=== PATIENT | male | born 1965 | race Caucasian/White ===

== ENCOUNTER 2018-04-14 16:30 | Emergency (ER) | payer BC, SELFPAY ==
[2018-04-14 16:47] VITALS: BP 142/81; PULSE 105; RESP 20; TEMP 38.6; O2SAT 95; BMI 36.6
[2018-04-14 17:38] VITALS: BP 143/81; PULSE 97; O2SAT 96
--- NOTE | 2018-04-14 18:07 | ED.FEVER ---
HPI - Fever General Chief Complaint: Fever Stated Complaint: FEVER Time Seen by Provider: 04/14/18 18:06 Source: patient Mode of arrival: ambulatory Limitations: no limitations History of Present Illness HPI Narrative: 53-year-old otherwise healthy male except for hypertension here for evaluation of approximately 2 days of a fever at home. Patient states that his temperature is got as high as 104. Took some aspirin. States that the fever comes down but then returns again. Does have a cough. Does have a sore throat. No sinus congestion. States that he was exposed to someone with ?bronchitis ?at work who coughed around him. Related Data Previous Rx's Medication Instructions Recorded sildenafil [Viagra] 0 mg PO QDAYP PRN #5 tab 12/16/16 chlorthalidone 25 mg PO QDAY #90 tab 09/07/17 potassium chloride 20 meq PO QDAY #90 tab 11/01/17 simvastatin [Zocor] 20 mg PO QDAY #90 tab 11/27/17 acetaminophen 300 mg-codeine 30 mg 1 - 2 tab PO SEE INSTRUCTIONS #90 03/26/18 tablet tab zolpidem 10 mg tablet 10 mg PO HS PRN #60 mg 03/26/18 carvedilol phosphate [Coreg CR] 40 mg PO QDAY #90 cer 04/03/18 Allergies Allergy/AdvReac Type Severity Reaction Status Date / Time *PAIN MANAGEMENT AGREEMENT AdvReac Mild Uncoded 02/14/18 12:20 Review of Systems Constitutional Reports fatigue, Reports fever(s), Denies headache(s), Reports lethargy and Denies snoring ENT Ears, Nose, Mouth, and Throat: Denies dental pain, Denies vertigo, Denies dizziness, Denies headache(s), Denies neck pain, Denies sinus pain, Denies sinus pressure and Reports sore throat Cardiovascular Denies chest pain, Denies irregular heart rhythm, Denies lightheadedness, Denies palpitations, Denies dyspnea and Denies orthopnea Respiratory Reports chest congestion, Reports cough, Denies pain on inspiration, Reports pain with cough, Denies dyspnea, Denies snoring and Denies wheezing Gastrointestinal Gastrointestinal: Denies abdominal pain, Denies diarrhea, Denies nausea and Denies vomiting Comments: Decreased oral intake Genitourinary Denies dysuria Musculoskeletal Denies back pain, Denies myalgias, Denies arthralgias and Denies neck pain Integumentary/Breasts Denies lesions and Denies rash Neurologic Denies vertigo, Denies dizziness and Denies headache(s) Endocrine Reports fatigue and Denies palpitations Hematologic/Lymphatic Denies easy bruising Allergic/Immunologic Denies wheezing [facility] Social History Smoking Status: Never smoker Exam Initial Vital Signs Initial Vital Signs: Vital Signs Temperature 101.4 F H 04/14/18 16:47 Pulse Rate 105 H 04/14/18 16:47 Respiratory Rate 20 04/14/18 16:47 Blood Pressure 142/81 H 04/14/18 16:47 Pulse Oximetry 95 04/14/18 16:47 Const General: cooperative and well developed Nutritional Appearance: well nourished Orientation: alert, awake, oriented x3 and not confused HENMT Head: normal to inspection, normocephalic and atraumatic Ears: TM's normal bilaterally Nose: external nose normal Throat: posterior oropharynx normal, tonsils normal and uvula midline Neck Neck: normal visual inspection, trachea midline, No lymphadenopathy and No midline deformity Lymphatic: No lymphadenopathy Resp Effort & Inspection: normal respiratory effort, able to speak in complete sentences, no respiratory distress and no use of accessory muscles Auscultation: clear to auscultation bilaterally, no rales, no rhonchi and no wheezes Cardio Rate: regular rate Rhythm: regular rhythm Heart Sounds: no click, no gallops, no murmurs and no rubs Pulses: normal peripheral pulses GI Inspection: non-distended Palpation: soft, no hepatosplenomegaly, No guarding, No pulsatile mass and No tender Auscultation: normal bowel sounds Skin General: no rashes or lesions noted, No jaundice and No petechiae Neuro General: alert, awake and oriented x3 Extrem General: full ROM, no clubbing, cyanosis or edema, no pedal edema and no calf tenderness Course Orders Ordered: ED Orders 04/14/18 18:08 Blood Culture Stat Urinalysis and Microscopic Stat 04/14/18 18:11 Chest [XR chest 2V] Stat 04/14/18 18:30 Basic Metabolic Panel Stat Bilirubin Total Stat Complete Blood Count AUTO DIFF Stat Lactate (Lactic Acid) Stat Procalcitonin Stat Discontinued Medications Acetaminophen (Tylenol) 975 mg PO NOW ONE Stop: 04/14/18 17:23 Last Admin: 04/14/18 18:14 Dose: 975 mg Sodium Chloride (Normal Saline 0.9%) 1,000 mls @ 1,000 mls/hr IV BOLUS ONE Stop: 04/14/18 19:11 Last Admin: 04/14/18 18:14 Dose: 1,000 mls/hr Vital Signs - 8 hr 04/14/18 16:47 04/14/18 17:38 04/14/18 18:14 Temperature 101.4 F H 101.0 F H Pulse Rate 105 H 97 H Respiratory Rate 20 Blood Pressure 142/81 H Blood Pressure [Right Arm] 143/81 H Pulse Oximetry 95 96 04/14/18 18:36 04/14/18 18:45 04/14/18 19:05 Temperature 100.4 F H Pulse Rate 93 H 90 Respiratory Rate 18 16 Blood Pressure Blood Pressure [Right Arm] 124/61 H 132/62 H Pulse Oximetry 94 92 MDM - Fever Lab Data Attestation: I reviewed the patient's lab results. Result diagrams: 04/14/18 18:30 04/14/18 18:30 Lab Results 04/14/18 04/14/18 04/14/18 Range/Units 18:08 18:30 18:30 WBC 8.7 (4.5-11.0) X10^3/uL RBC 4.70 (4.5-5.9) X10^6/uL Hgb 13.8 (13.5-17.5) g/dL Hct 39.3 L (41-53) % MCV 83.5 (80-100) fL MCH 29.3 (26-34) PG MCHC 35.0 (30-36) % RDW 13.4 (11.6-14.8) % Plt Count 153 (150-400) X10^3/uL Neut % (Auto) 75.8 H (50-75) % Lymph % (Auto) 13.2 L (25-40) % [place] % (Auto) 10.6 (3-14) % Eos % (Auto) 0.2 L (2-4) % Baso % (Auto) 0.2 (0-2) % Neut # (Auto) 6600 H (2420-8863) /uL Sodium (137-145) mmol/L Potassium (3.4-5.1) mmol/L Chloride (98-107) mmol/L Carbon Dioxide (22-32) mmol/L BUN (9-20) mg/dL Creatinine (0.66-1.25) mg/dL Estimated GFR (>60) mL/min BUN/Creatinine Ratio (6-22) Glucose (70-100) mg/dL Lactate (0.7-2.1) mmol/L Calcium (8.4-10.2) mg/dL Total Bilirubin (0.2-1.3) mg/dL Procalcitonin 0.08 (<0.5) ng/mL Urine Color Yellow Urine Appearance Clear Urine pH 6.0 (4.5-8.0) Ur Specific [place] <=1.005 (1.000-1.035) Urine Protein Negative (Negative) Urine Glucose (UA) Negative (Normal) g/dL Urine Ketones Negative (NEGATIVE) Urine Occult Blood 1+ H (Negative) Urine Nitrate Negative (Negative) Urine Bilirubin Negative (NEGATIVE) Urine Urobilinogen 0.2 (0.2) E.U./dL Ur Leukocyte Esterase Negative (NEGATIVE) Urine RBC 0-1/hpf (0-5/HPF) Urine WBC 0-1/hpf (0-5/HPF) Ur Squamous Epith Cells 0-1 /hpf Urine Bacteria None seen (None) Ur Culture Indicated? Not Reportable Micro UA Comment Not Reportable 04/14/18 04/14/18 Range/Units 18:30 18:30 WBC (4.5-11.0) X10^3/uL RBC (4.5-5.9) X10^6/uL Hgb (13.5-17.5) g/dL Hct (41-53) % MCV (80-100) fL MCH (26-34) PG MCHC (30-36) % RDW (11.6-14.8) % Plt Count (150-400) X10^3/uL Neut % (Auto) (50-75) % Lymph % (Auto) (25-40) % [place] % (Auto) (3-14) % Eos % (Auto) (2-4) % Baso % (Auto) (0-2) % Neut # (Auto) (4535-4132) /uL Sodium 138 (137-145) mmol/L Potassium 2.9 L (3.4-5.1) mmol/L Chloride 97 L (98-107) mmol/L Carbon Dioxide 31 (22-32) mmol/L BUN 11 (9-20) mg/dL Creatinine 0.80 (0.66-1.25) mg/dL Estimated GFR > 60.0 (>60) mL/min BUN/Creatinine Ratio 13.8 (6-22) Glucose 144 H (70-100) mg/dL Lactate 1.5 (0.7-2.1) mmol/L Calcium 8.3 L (8.4-10.2) mg/dL Total Bilirubin 0.5 (0.2-1.3) mg/dL Procalcitonin (<0.5) ng/mL Urine Color Urine Appearance Urine pH (4.5-8.0) Ur Specific [place] (1.000-1.035) Urine Protein (Negative) Urine Glucose (UA) (Normal) g/dL Urine Ketones (NEGATIVE) Urine Occult Blood (Negative) Urine Nitrate (Negative) Urine Bilirubin (NEGATIVE) Urine Urobilinogen (0.2) E.U./dL Ur Leukocyte Esterase (NEGATIVE) Urine RBC (0-5/HPF) Urine WBC (0-5/HPF) Ur Squamous Epith Cells Urine Bacteria (None) Ur Culture Indicated? Micro UA Comment Imaging Data Chest x-ray: Radiologist's impression: PROCEDURE: XR CHEST 2V INDICATIONS: 53 year-old male with fever and cough. TECHNIQUE: 2 views of the chest were acquired. COMPARISON: [facility], CHEST 1 VIEW, 12/27/2016, 13:08. FINDINGS: Surgical changes and devices: None. Lungs and pleura: No pleural effusions or pneumothorax. Lungs are clear. Mediastinum: Mediastinal contours are normal. Heart size is normal. Bones and chest wall: No suspicious bony abnormalities. There is thoracic spine diffuse idiopathic skeletal hyperostosis. Soft tissues appear unremarkable. IMPRESSION: No acute cardiopulmonary disease. Dictated by: Rosas Hubbard M.D. on 04/14/2018 at 19:01 MDM Narrative Medical decision making narrative: Nontoxic, not in respiratory distress, no consolidation on the chest x-ray, fever improved with medications here in the emergency department. Patient tolerating oral intake. Had a discussion about fever control at home. I discussed about increasing fluid intake. I suspect a viral illness. Patient was given return precautions. He expressed understanding and agreement with plan. Discharge Plan Departure Patient Disposition: Home, Self-Care Clinical Impression: Fever Instructions: DI for Fever (Symptom) -- Adult Activity Restrictions/Additional Instructions: Make sure you are taking the medicines like we discussed. Increase her fluid intake. Call your primary doctor for a follow-up. Return to the emergency department for any new or worsening symptoms Prescriptions: No Action sildenafil [Viagra] 100 MG tablet PO QDAYP PRNQty: 5 RF: 12 chlorthalidone 25 MG tablet 25 mg PO QDAY Qty: 90 RF: 2 potassium chloride 20 MEQ tablet,ER particles/crystals 20 meq PO QDAY Qty: 90 RF: 3 simvastatin [Zocor] 20 MG tablet 20 mg PO QDAY Qty: 90 RF: 2 acetaminophen-codeine 300-30 mg tablet 1 - 2 tab PO SEE INSTRUCTIONS Qty: 90 RF: 0 zolpidem [Ambien] 10 mg tablet 10 mg PO HS PRN (Reason: insomnia) Qty: 60 RF: 0 carvedilol phosphate [Coreg CR] 40 mg capsule, ER multiphase 24 hr 40 mg PO QDAY Qty: 90 RF: 2 Stand Alone Forms: Work/School Restrictions
--- NOTE | 2018-04-14 18:11 | DI.RAD.S_ITS ---
PROCEDURE: XR CHEST 2V INDICATIONS: 53 year-old male with fever and cough. TECHNIQUE: 2 views of the chest were acquired. COMPARISON: [facility], , CHEST 1 VIEW, 12/27/2016, 13:08. FINDINGS: Surgical changes and devices: None. Lungs and pleura: No pleural effusions or pneumothorax. Lungs are clear. Mediastinum: Mediastinal contours are normal. Heart size is normal. Bones and chest wall: No suspicious bony abnormalities. There is thoracic spine diffuse idiopathic skeletal hyperostosis. Soft tissues appear unremarkable. IMPRESSION: No acute cardiopulmonary disease. Dictated by: Rosas Hubbard M.D. on 04/14/2018 at 19:01 Approved by: Rosas Hubbard M.D. on 04/14/2018 at 19:02
[2018-04-14 18:14] VITALS: TEMP 38.3
[2018-04-14] MEDS: SODIUM CHLORIDE 0.9% 1,000 ML 1000 ML IV (18:14)
[2018-04-14] MEDS: ACETAMINOPHEN 325 MG TABLET 975 MG PO (18:14)
[2018-04-14 18:36] VITALS: BP 124/61; PULSE 93; RESP 18; O2SAT 94
[2018-04-14 18:44] LABS: Bacteria Urine None Seen
[2018-04-14 18:45] VITALS: TEMP 38
[2018-04-14 18:47] LABS: Add Manual Diff / Slide Review NO; Basophils Percent Auto 0.2 % (0-2); Eosinophils Percent Auto 0.2 % (2-4); Hematocrit 39.3 % (41-53); Hemoglobin 13.8 g/dL (13.5-17.5); Lymphocytes Percent Auto 13.2 % (25-40); Mean Corpuscular Hemoglobin 29.3 PG (26-34); Mean Corpuscular Volume 83.5 fL (80-100); Monocytes Percent Auto 10.6 % (3-14); Neutrophils Absolute Auto 6600 /uL (3000-5900); Neutrophils Percent Auto 75.8 % (50-75); Platelet Count 153 X10^3/uL (150-400); Red Cell Distribution Width 13.4 % (11.6-14.8); White Blood Cell Count 8.7 X10^3/uL (4.5-11.0)
[2018-04-14 18:48] LABS: Appearance Urine UA CLEAR; Bilirubin Urine UA NEGATIVE (NEGATIVE); Color Urine UA YELLOW; Glucose Urine UA NEGATIVE (Normal); Ketones Urine UA NEGATIVE (NEGATIVE); Leukocyte Esterase Urine UA NEGATIVE (NEGATIVE); Nitrite Urine UA Negative (Negative); Occult Blood Urine UA 1+ (Negative); Protein Urine UA NEGATIVE (Negative); Specific Gravity Urine UA <=1.005 (1.000-1.035); Urobilinogen Urine UA 0.2 E.U./dL (0.2)
[2018-04-14 18:54] LABS: Lactate (Lactic Acid) 1.5 mmol/L (0.7-2.1)
[2018-04-14 18:55] LABS: BUN Creatinine Ratio 13.8 (6-22); Bilirubin Total 0.5 mg/dL (0.2-1.3); Blood Urea Nitrogen 11 mg/dL (9-20); Calcium 8.3 mg/dL (8.4-10.2); Carbon Dioxide 31 mmol/L (22-32); Chloride 97 mmol/L (98-107); Estimated Glomerular Filt Rate > 60.0 mL/min (>60); Glucose 144 mg/dL (70-100); HEMOLYSIS < 15 (0-50); Potassium 2.9 mmol/L (3.4-5.1); Sodium 138 mmol/L (137-145)
[2018-04-14 19:01] LABS: RBC Urine 0-1/HPF (0-5/HPF); Squamous Epithelial Cell Urine 0-1 /HPF; WBC Urine 0-1/HPF (0-5/HPF)
[2018-04-14 19:05] VITALS: BP 132/62; PULSE 90; RESP 16; O2SAT 92
[2018-04-14 19:19] LABS: Procalcitonin 0.08 ng/mL (<0.5)
== END 2018-04-14 19:36 | disposition home or self-care (01) ==
PROVIDERS: Emergency Medicine; Emergency Provider Emergency Medicine; Family Provider Internal Medicine; PCP Internal Medicine
DX: R50.9 Fever, unspecified (principal)
CPT/HCPCS: 36415; 36591; 71046; 80048; 81001; 82247; 83605; 84145; 85025; 87040; 87880; 96360; 99283; 99284

== ENCOUNTER → 2018-04-17 15:23 | Outpatient (CLI) | payer SELFPAY | PROVIDERS: Family Provider Internal Medicine; PCP Internal Medicine; Visit Provider Internal Medicine ==

== ENCOUNTER → 2018-04-19 10:17 | Outpatient (CLI) | payer BC, SELFPAY | PROVIDERS: PCP Internal Medicine; Visit Provider Internal Medicine | DX: R50.9 Fever, unspecified (principal); R05 Cough; Z53.9 Procedure and treatment not carried out, unspecified reason | CPT/HCPCS: 87070; 87077; 87147; 87205 ==

== ENCOUNTER → 2018-04-19 14:38 | Outpatient (CLI) | payer BC, SELFPAY ==
[2018-04-19 16:10] LABS: Blood Urea Nitrogen 12 mg/dL (9-20); Calcium 9.1 mg/dL (8.4-10.2); Carbon Dioxide 35 mmol/L (22-32); Chloride 93 mmol/L (98-107); Estimated Glomerular Filt Rate > 60.0 mL/min (>60); Glucose 123 mg/dL (70-100); HEMOLYSIS < 15 (0-50); Potassium 3.4 mmol/L (3.4-5.1); Sodium 140 mmol/L (137-145)
== END ==
PROVIDERS: PCP Internal Medicine; Visit Provider Internal Medicine
DX: E87.6 Hypokalemia (principal); J20.9 Acute bronchitis, unspecified
CPT/HCPCS: 36415; 80048; 87070; 87077; 87147; 87186; 87205

== ENCOUNTER → 2019-08-22 16:26 | Outpatient (CLI) | payer BC, SELFPAY ==
[2019-08-22 18:15] LABS: Prostate Specific Antigen Scrn 1.51 ng/mL (0.1-4.0)
== END ==
PROVIDERS: PCP Internal Medicine; Visit Provider Internal Medicine
DX: Z12.5 Encounter for screening for malignant neoplasm of prostate (principal)
CPT/HCPCS: 36415; G0103

== ENCOUNTER → 2020-09-11 08:13 | Outpatient (CLI) | payer BC, SELFPAY ==
[2020-09-11 10:32] LABS: Alanine Aminotransferase 54 IU/L (<50); Albumin 4.2 g/dL (3.5-5.0); Albumin Globulin Ratio 1.5 (1.0-2.8); Alkaline Phosphatase 70 U/L (38-126); Aspartate Aminotransferase 45 IU/L (17-59); BUN Creatinine Ratio 17.1 (6-22); Bilirubin Total 0.6 mg/dL (0.2-1.3); Blood Urea Nitrogen 12 mg/dL (9-20); Calcium 9.1 mg/dL (8.4-10.2); Carbon Dioxide 32 mmol/L (22-32); Chloride 98 mmol/L (98-107); Cholesterol 153 mg/dL (140-199); Estimated Glomerular Filt Rate > 60.0 mL/min (>60); Globulin 2.8 g/dL (1.7-4.1); Glucose 176 mg/dL (70-100); HDL Cholesterol 28 mg/dL (40-60); HEMOLYSIS < 15 (0-50); LDL Cholesterol Calculated 63 mg/dL (<100); Potassium 3.3 mmol/L (3.4-5.1); Sodium 137 mmol/L (137-145); Triglycerides 311 mg/dL (35-150)
== END ==
PROVIDERS: PCP Internal Medicine; Referring Provider Internal Medicine; Visit Provider Internal Medicine
DX: E78.2 Mixed hyperlipidemia (principal); I10 Essential (primary) hypertension; Z12.5 Encounter for screening for malignant neoplasm of prostate
CPT/HCPCS: 36415; 80053; 80061; G0103

== ENCOUNTER → 2020-10-23 07:17 | Outpatient (CLI) | payer BC, SELFPAY ==
[2020-10-23 08:28] LABS: Hemoglobin A1C% w Est Avg Glu 6.8 % (4.0-6.0)
[2020-10-23 08:38] LABS: BUN Creatinine Ratio 18.8 (6-22); Blood Urea Nitrogen 13 mg/dL (9-20); Calcium 9.2 mg/dL (8.4-10.2); Carbon Dioxide 35 mmol/L (22-32); Chloride 99 mmol/L (98-107); Estimated Glomerular Filt Rate > 60.0 mL/min (>60); Glucose 150 mg/dL (70-100); HEMOLYSIS < 15 (0-50); Potassium 3.1 mmol/L (3.4-5.1); Sodium 138 mmol/L (137-145)
== END ==
PROVIDERS: PCP Internal Medicine; Referring Provider Internal Medicine; Visit Provider Internal Medicine
DX: E87.6 Hypokalemia (principal); I10 Essential (primary) hypertension; R73.9 Hyperglycemia, unspecified
CPT/HCPCS: 36415; 80048; 83036

== ENCOUNTER → 2021-01-07 14:52 | Outpatient (CLI) | payer BC, SELFPAY ==
--- NOTE | 2021-01-07 16:06 | DIET.PN ---
Diabetes Intake: Initial Assessment Assess: Mr. Greene is a 55 YOM referred for newly diagnosed type 2 diabetes. He reports no family hx. No other significant pmhx to report. 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 His daily routine as well as eating habits have changed. He has not been able to exercise due to chronic back pain. Currently does not have a glucometer. Labs: Per pt report: A1: 6.8 Meds: na Diet: per 24 hr recall: B: granola, oatmeal, milk, sugar L: can of salmon D: protein, veggies, rice Sn: 6 oz glass of milk; custard Wt: 288lb Ht: 74in BMI: 37.1 BP: 134/90 DX: Altered nutrition related laboratory values related to impaired glucose metabolism, lack of previous exposure to nutrition information as evidenced by pt report, diagnosis of diabetes, previous diet high in refined carbohydrates. Intervention: 1. Completed intake assessment. Discussed barriers to care. 2. Discussed pathophysiology of diabetes. Reviewed A1c and its correlation to blood glucose numbers. Discussed recommended BG ranges. 3. Discussed importance of self-monitoring, how often, and when to check. Provided demonstration on use of glucometer. 4. Reviewed hyper/hypoglycemia and treatment. 5. Reviewed safe disposal of equipment (strip/lancets/insulin needles). 6. Created SMART goals for pt self-care and success. 7. Discussed program curriculum outline and class needs based on individual goals. SMART Goals: 1. Pt goal weight of 220 in the next year through improved dietary habits, learning carb counting and appropriate portions and incorporating regular exercise. Monitor/Evaluate: Pt will attend full DSME program. Basic Nutrition class scheduled for Jan 12. Today?s visit was done via tele [employer]. 1 hour was spent [id number]-[id number] by video. Patient consented to receive these services via tele [employer] using the [email or web address] application. Participants in the tele conference were myself and the patient only. I was located at [facility] and the patient at his/her home.
== END ==
PROVIDERS: PCP Internal Medicine; Referring Provider Internal Medicine; Visit Provider Internal Medicine
DX: E11.9 Type 2 diabetes mellitus without complications (principal)
CPT/HCPCS: G0108

== ENCOUNTER → 2021-01-12 13:55 | Outpatient (CLI) | payer BC, SELFPAY ==
--- NOTE | 2021-01-12 15:39 | DIET.PN ---
Diabetes: Healthy Eating 1 Intervention: ? Discussed pathophysiology of diabetes and impact of nutrition/diet on blood sugar control.? Discussed fed versus non-fed state.?? ? Reviewed importance of Balance, Variety, and Moderation. ? Discussed the effect of carbohydrates/protein/fat on blood sugar control.? ? Stressed importance of consistent carbohydrate intake at each meal and provided instructions for recommended servings/portions of carbohydrates/protein per meal. Provided educational material. ? Reviewed carbohydrate counting and measuring carbohydrate content via serving sizes and reading nutrition labels.? Provided handouts.?? ? Discussed the difference between simple versus complex carbohydrates and the effect of fiber on blood sugar control.? Discussed various methods to increase fiber content in diet. ? Discussed the plate method for creating more carbohydrate conscious balanced meals. ? Stressed importance of meal timing and not going >4-5 hours between meals. Encouraged adding protein to evening snack to support glucose control overnight. ? Discussed importance of making dietary habits part of lifestyle change.
== END ==
PROVIDERS: PCP Internal Medicine; Referring Provider Internal Medicine; Visit Provider Internal Medicine
DX: E11.9 Type 2 diabetes mellitus without complications (principal); Z71.3 Dietary counseling and surveillance
CPT/HCPCS: G0109

== ENCOUNTER → 2021-01-19 16:27 | Outpatient (CLI) | payer BC, SELFPAY ==
--- NOTE | 2021-01-19 16:28 | DIET.PN ---
Diabetes: Healthy Eating 2 Intervention: Fats effects on glucose, weight, heart disease, cholesterol Sat Vs Unsat Protein- animal and plant based options Low, med, high fat meats Sugar substitutes Sodium Health claims Grocery shopping guidelines Eating away from home Alcohol Sick day guidelines Ketone Testing
== END ==
PROVIDERS: PCP Internal Medicine; Referring Provider Internal Medicine; Visit Provider Internal Medicine
DX: E11.9 Type 2 diabetes mellitus without complications (principal); Z71.3 Dietary counseling and surveillance
CPT/HCPCS: G0109

== ENCOUNTER → 2021-01-26 13:47 | Outpatient (CLI) | payer BC, SELFPAY ==
--- NOTE | 2021-01-26 16:54 | DIET.PN ---
Diabetes Physiology: Intervention 1. Diabetes physiology 2. Detecting and treatment of acute and chronic complications 3. Diagnosis of and difference in types of diabetes 4. Self-monitoring and pattern management a. Demonstrate glucometer and control testing b. Explain BG results and action to take when out of range. 5. Foot , eye, dental care 6. Medications a. Oral medication classification b. Injectable c. Insulin i. Injection protocol ii. Other delivery methods
== END ==
PROVIDERS: PCP Internal Medicine; Referring Provider Internal Medicine; Visit Provider Internal Medicine
DX: E11.9 Type 2 diabetes mellitus without complications (principal); Z71.3 Dietary counseling and surveillance
CPT/HCPCS: G0109

== ENCOUNTER → 2021-02-02 10:03 | Outpatient (CLI) | payer BC, SELFPAY ==
--- NOTE | 2021-02-02 12:10 | DIET.PN ---
Diabetes Exercise/Lifestyle change: 1. Importance of exercise 2. FITT (frequency, intensity, time, type) 3. Strength training tips and guidelines 4. Glucose monitoring/ranges before and after a. Carbohydrate needs based on glucose ranges and duration/intensity of exercise b. Rule of 15 5. Proper foot attire 6. Developing strategies for behavior change 7. SMART Goal Setting 8. Home exercise routine demonstration (as a class)
== END ==
PROVIDERS: PCP Internal Medicine; Referring Provider Internal Medicine; Visit Provider Internal Medicine
DX: E11.9 Type 2 diabetes mellitus without complications (principal); Z71.3 Dietary counseling and surveillance
CPT/HCPCS: G0109

== ENCOUNTER 2021-02-04 12:45 | Outpatient (RCR) | payer BC, SELFPAY ==
--- NOTE | 2020-12-11 17:00 | PT.OIE ---
Current Diagnoses Low back pain (12/11/20) Past Medical History (This Medical Record has been edited. Action required.) Colon polyps (04/2017) Depression Diabetes type 2, controlled Diabetes type 2, uncontrolled Essential hypertension Human leukocyte antigen B27 positive (05/13/16) Hyperlipidemia Hypertension Insomnia Obstructive sleep apnea Visit Care Team Role Provider Type Walter Wooten MD Attending Provider Physician Primary Care Provider Referring Provider Specialty: Internal Medicine Address: [address] [place] [address], [address], [facility] Email: [email or web address] Physical Therapy Initial Evaluation PT-OP-A Visit Information Start: 12/10/20 17:16 Freq: Status: Active Protocol: Document 12/11/20 09:57 LRN (Rec: 12/11/20 11:17 LRN [id number]) Out-Patient Physical Therapy Visit Information Visit Information Visit Type Initial Evaluation Visit Start Time 09:57 Visit Stop Time 10:47 Total Visit Minutes 50 Visit Number 1 Evaluation Information Evaluation Date 12/11/20 Precautions Precautions Blood pressure PT-OP-B Current Condition Start: 12/10/20 17:16 Freq: Status: Active Protocol: Document 12/11/20 09:57 LRN (Rec: 12/11/20 11:17 LRN [id number]) Current Condition History of Current Condition Onset Date 09/28/20 Current Complaints Low back Pain rated 2-9/10. History of Current Condition Pain that sometimes radiates/ wraps around the front ( parallel to pain). Thinks what has aggravated it is that he has been working from home , on computer, and could be posture or ergonomics. 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 Pt is R handed. Prior Treatments and Tests Dr Dias (for Dr. Wooten) offered ms relaxor and is taking Tylenol 3's also for his back pain that has helped to decrease his pain. Uses heating pad at home to help quite a bit. Dr. Dias (for Dr. Wooten) also gave prescription for Voltaren cream that is helpful . Developmental History Developmental History Insidious onset. At the time was working around the yard. Dull pain starting in the back , once wrapping around the chest really hurt and really bothered him. 2 nights ago was working on his generator and that evening the pain was really bad. Treatment Goals Patient/Caregiver Goals Elimination of pain. 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 Painful with putting on socks/ shoes daily. Prior Functional Status Baseline Function- ADL's Independent Baseline Function- Mobility Independent Current Functional Impairments (Reported) Functional Limitations- ADL's Pain Picking up dog (45, 55, 30) to put on lap. Painful with putting on socks/ shoes daily. Functional Limitations- Mobility/Gait Back can bother him with daily walking of dogs, that aggrevate it when dog pulls. 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 PT-OP-C Subjective Start: 12/10/20 17:16 Freq: Status: Active Protocol: Document 12/11/20 09:57 LRN (Rec: 12/11/20 11:17 LRN [id number]) Patient Questionnaires Oswestry Low Back Index Oswestry Score 38 Oswestry Impairment 20 to 39% Impaired (Score 20- 39) OP-PT Pain Assessment Location Low back Pain Location Details Low back that wraps around trunk, pain ranges from 2-9 intensity Intensity 9 Scale Used Numeric (0 - 10) Description Sharp,Shooting Frequency Intermittent Pain Alleviating Factors Medication Patient Stated Pain Goal Alleviate pain PT-OP-J Posture/Palpation/Skin Start: 12/10/20 17:16 Freq: Status: Active Protocol: Document 12/11/20 09:57 LRN (Rec: 12/11/20 11:17 LRN [id number]) Posture Evaluation Position Standing Head/C-Spine Posture Side Bent Left,Forward Head L-Spine Posture Increased Lordosis,Flexible Scoliosis on (L) Palpation Assessment Location Lumbar paraspinals Palpation Findings Muscle Guarding,Tenderness Palpation Details R > L QL Sacrum Palpation Findings Tenderness Palpation Details Increased temp PT-OP-K Range of Motion Start: 12/10/20 17:16 Freq: Status: Active Protocol: Document 12/11/20 09:57 LRN (Rec: 12/11/20 11:17 LRN [id number]) Lumbar Spine Range of Motion Lumbar Spine Active Degrees Testing Position Standing Flexion 60 Extension 0 Rotation Left 10 Rotation Right 10 Lateral Flexion Left 20 Lateral Flexion Right 10 Comments FF: 60/40 BB 10/10 SB L pain on L lateral trunk Rot R Rot L Hip Goniometric Range of Motion Hip Left Passive Testing Position Supine Straight Leg Raise 60 Internal Rotation 25 External Rotation 50 Right Passive Testing Position Supine Straight Leg Raise 65 Internal Rotation 30 External Rotation 43 PT-OP-L Special Tests Start: 12/10/20 17:16 Freq: Status: Active Protocol: Document 12/11/20 09:57 LRN (Rec: 12/11/20 11:17 LRN [id number]) Special Tests Lumbar Spine Special Tests Straight Leg Raise Test Results L 60, R 65 Comments Tight hamstrings PT-OP-M Strength Start: 12/10/20 17:16 Freq: Status: Active Protocol: Document 12/11/20 09:57 LRN (Rec: 12/11/20 11:17 LRN [id number]) Trunk Strength Trunk Manual Muscle Testing Core Stabilization Not able to maintain core stability with hip AB/AD testing. Core mostly stable with hip flex testing. Hip Strength Hip Manual Muscle Testing Right Flexion (L2) 5 Normal Abduction 3+ Fair+ Adduction 1 Trace Left Flexion (L2) 5 Normal Abduction 3+ Fair+ Adduction 3 Fair PT-OP-Q Treatments Start: 12/10/20 17:16 Freq: Status: Active Protocol: Document 12/11/20 09:57 LRN (Rec: 12/11/20 11:17 LRN [id number]) Therapeutic Exercises Supine Exercises Bridging Supine Exercise Name Bridging Reps/Minutes 5x Comments Teaching pt exercise (see self care section) Manual Therapy Treatment Joint Mobilizations L5 Joint L5 Direction PA Oscillations Grade II Body Position Prone Self-Care/Home Management Treatment Education Other Education Discussed results of evaluation, goals, plan of care with pt agreeable. Educated pt in proper sitting posture and discussed ex to do with onset of back pain. Activities Self-Care/Home Management Activities I/S pt in HEP: Bridging 8-15 reps 2x/day. PT-OP-T Assessment and Plan Start: 12/10/20 17:16 Freq: Status: Active Protocol: Document 12/11/20 09:57 LRN (Rec: 12/11/20 11:17 LRN [id number]) Physical Therapy Assessment Rehab Potential Rehabilitation Potential Good Evaluation Complexity Number of Personal Factors/Comorbidities 1-2 Number of Body Systems Impaired 4 or More Clinical Presentation at Evaluation Evolving Impairments Impairments Activity Tolerance,Pain, Posture,ROM,Soft Tissue Mobility,Strength,Transfers Goals Four Impairment Decreased trunk stability/ strength Short Term Goal (STG) Pt able to maintain core stability with movement or MMT of LE's. STG Duration 01/08/21 Shovel Operator Goal (LTG) Pt able to picker / packer his dogs ( 30#, 45#, 55#) to put on his lap. LTG Duration 01/28/21 Three Impairment Decreased trunk mobility with pain Short Term Goal (STG) Pt is independent on a trunk flexibility home program. STG Duration 01/08/21 Senior Living Goal (LTG) Pt will be able to put on socks/shoes without. 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 LTG Duration 03/11/21 One Impairment Lacks appropriate self care HEP Shovel Operator Goal (LTG) Pt will be independent with a progressive self care HEP LTG Duration 03/11/21 Assessment Summary Assessment 55 yr old male with mechanical LBP due to prolonged and probably poor posturing in chair for work during . L5 appears posteriorly shifted, restricted with extension > flexion and pain with jt mob into R rotation ( possibly stuck on R side). Pt has soft tissue muscle guarding in lumbar paraspinals (R>L) with C-curve apex on left, and R Quadratus Lumborum . Decreased rotation hip mobility with tightness of R Piriformis but no pain. Hip strength is weak and he has weak core muscles showing instability on LE MMT. Pt will benefit from skilled physical therapy to improve mechanical lumbar/thoracic/hip mobility, to improve core stability, and to educate the pt in proper posturing, transfer, and ergonomics for sitting at a computer. Physical Therapy Plan Frequency and Duration Frequency of Treatment 2x/Week Plan of Care Start Date 12/11/20 Plan of Care End Date 03/11/21 Therapeutic Interventions Therapeutic Interventions Home Exercise Program,Manual Therapy,Neuromuscular Re- education,Patient/Caregiver Education,Self-Care/Home Management,Soft Tissue Mobilization,Taping, Therapeutic Exercises Modalities Cold Pack/Ice Massage,Electric Stimulation,Hot Packs, Infrared Therapy,Traction- Mechanical,Ultrasound Next Visit Focus/Plan Next Note Type Treatment Note Next Visit Plan US to start at paraspinals, f/ b trunk stretches, add HEP: trunk flexibility ex's (to start: DKTC, JHONNY, sitting trunk rot). Start core strengthening (TA) and progress core stabilization with progression onto stability/core home program. Educate pt in proper posture ( sit), and ergonomics for computer work. Address self care of walking dog & proper transfer training. End with MH or ICE/IFES [L5].
--- NOTE | 2020-12-11 17:00 | PT.OPPOC ---
Physical, Occupational & Speech Therapy At [facility] Current Diagnoses Low back pain (12/11/20) Visit Care Team Role Provider Type Walter Wooten MD Attending Provider Physician Primary Care Provider Referring Provider Specialty: Internal Medicine Address: [address] [place] [address], [address], [address] Email: [email or web address] Plan Of Care PT-OP-T Assessment and Plan Start: 12/10/20 17:16 Freq: Status: Active Protocol: Document 12/11/20 09:57 LRN (Rec: 12/11/20 11:17 LRN [id number]) Physical Therapy Assessment Rehab Potential Rehabilitation Potential Good Evaluation Complexity Number of Personal Factors/Comorbidities 1-2 Number of Body Systems Impaired 4 or More Clinical Presentation at Evaluation Evolving Impairments Impairments Activity Tolerance,Pain, Posture,ROM,Soft Tissue Mobility,Strength,Transfers Goals Four Impairment Decreased trunk stability/ strength Short Term Goal (STG) Pt able to maintain core stability with movement or MMT of LE's. 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 LTG Duration 01/28/21 Three Impairment Decreased trunk mobility with pain Short Term Goal (STG) Pt is independent on a trunk flexibility home program. STG Duration 01/08/21 [facility] Goal (LTG) Pt will be able to put on socks/shoes without. 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 LTG Duration 03/11/21 One Impairment Lacks appropriate self care HEP Purchasing Department Clerk Goal (LTG) Pt will be independent with a progressive self care HEP LTG Duration 03/11/21 Assessment Summary Assessment 55 yr old male with mechanical LBP due to prolonged and probably poor posturing in chair for work during pandemic . L5 appears posteriorly shifted, restricted with extension > flexion and pain with jt mob into R rotation ( possibly stuck on R side). Pt has soft tissue muscle guarding in lumbar paraspinals (R>L) with C-curve apex on left, and R Quadratus Lumborum . Decreased rotation hip mobility with tightness of R Piriformis but no pain. Hip strength is weak and he has weak core muscles showing instability on LE MMT. Pt will benefit from skilled physical therapy to improve mechanical lumbar/thoracic/hip mobility, to improve core stability, and to educate the pt in proper posturing, transfer, and ergonomics for sitting at a computer. Physical Therapy Plan Frequency and Duration Frequency of Treatment 2x/Week Plan of Care Start Date 12/11/20 Plan of Care End Date 03/11/21 Therapeutic Interventions Therapeutic Interventions Home Exercise Program,Manual Therapy,Neuromuscular Re- education,Patient/Caregiver Education,Self-Care/Home Management,Soft Tissue Mobilization,Taping, Therapeutic Exercises Modalities Cold Pack/Ice Massage,Electric Stimulation,Hot Packs, Infrared Therapy,Traction- Mechanical,Ultrasound Next Visit Focus/Plan Next Note Type Treatment Note Next Visit Plan US to start at paraspinals, f/ b trunk stretches, add HEP: trunk flexibility ex's (to start: DKTC, JHONNY, sitting trunk rot). Start core strengthening (TA) and progress core stabilization with progression onto stability/core home program. Educate pt in proper posture ( sit), and ergonomics for computer work. Address self care of walking dog & proper transfer training. End with MH or ICE/IFES [L5]. Plan of Care Dates Plan of Care Start Date 12/11/20 Plan of Care End Date 03/11/21 Electronically Signed by: Megan Cook, PT 12/14/20 [id number] Please Sign and Return: I have reviewed this Plan of Care and certify that the skilled therapy services above are required to meet the patient?s needs. Physician Signature Date Printed Name and Credentials Clinical Instructor Signature Printed Name and Credentials
--- NOTE | 2020-12-15 16:26 | PT.OTN ---
Current Diagnoses Low back pain (12/15/20) Physical Therapy Treatment Note PT-OP-A Visit Information Start: 12/10/20 17:16 Freq: Status: Active Protocol: Document 12/15/20 10:33 LRN (Rec: 12/15/20 11:18 LRN [id number]) Out-Patient Physical Therapy Visit Information Visit Information Visit Type Treatment Note Visit Start Time 10:33 Visit Stop Time 11:26 Total Visit Minutes 53 Visit Number 2 Evaluation Information Evaluation Date 12/11/20 Precautions Precautions Blood pressure PT-OP-B Current Condition Start: 12/10/20 17:16 Freq: Status: Active Protocol: Document 12/11/20 09:57 LRN (Rec: 12/11/20 11:17 LRN [id number]) Current Condition History of Current Condition Onset Date 09/28/20 Current Complaints Low back Pain rated 2-9/10. History of Current Condition Pain that sometimes radiates/ wraps around the front ( parallel to pain). Thinks what has aggravated it is that he has been working from home , on computer, and could be posture or ergonomics. 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 Pt is R handed. Prior Treatments and Tests Dr Dias (for Dr. Wooten) offered ms relaxor and is taking Tylenol 3's also for his back pain that has helped to decrease his pain. Uses heating pad at home to help quite a bit. Dr. Dias (for Dr. Wooten) also gave prescription for Voltaren cream that is helpful . Developmental History Developmental History Insidious onset. At the time was working around the yard. Dull pain starting in the back , once wrapping around the chest really hurt and really bothered him. 2 nights ago was working on his generator and that evening the pain was really bad. Treatment Goals Patient/Caregiver Goals Elimination of pain. 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 Painful with putting on socks/ shoes daily. Prior Functional Status Baseline Function- ADL's Independent Baseline Function- Mobility Independent Current Functional Impairments (Reported) Functional Limitations- ADL's Pain Picking up dog (45, 55, 30) to put on lap. Painful with putting on socks/ shoes daily. Functional Limitations- Mobility/Gait Back can bother him with daily walking of dogs, that aggrevate it when dog pulls. 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 PT-OP-C Subjective Start: 12/10/20 17:16 Freq: Status: Active Protocol: Document 12/15/20 10:33 LRN (Rec: 12/15/20 11:18 LRN [id number]) OP-PT Subjective Patient Comments Patient Comments Did a lot in garage 4 days ago , so didn't do too much the past couple of days. Pain 1- 2/10 currently, is worse if moves a certain way. PT-OP-J Posture/Palpation/Skin Start: 12/10/20 17:16 Freq: Status: Active Protocol: Document 12/11/20 09:57 LRN (Rec: 12/11/20 11:17 LRN [id number]) Posture Evaluation Position Standing Head/C-Spine Posture Side Bent Left,Forward Head L-Spine Posture Increased Lordosis,Flexible Scoliosis on (L) Palpation Assessment Location Lumbar paraspinals Palpation Findings Muscle Guarding,Tenderness Palpation Details R > L QL Sacrum Palpation Findings Tenderness Palpation Details Increased temp PT-OP-K Range of Motion Start: 12/10/20 17:16 Freq: Status: Active Protocol: Document 12/11/20 09:57 LRN (Rec: 12/11/20 11:17 LRN [id number]) Lumbar Spine Range of Motion Lumbar Spine Active Degrees Testing Position Standing Flexion 60 Extension 0 Rotation Left 10 Rotation Right 10 Lateral Flexion Left 20 Lateral Flexion Right 10 Comments FF: 60/40 BB 10/10 SB L pain on L lateral trunk Rot R Rot L Hip Goniometric Range of Motion Hip Left Passive Testing Position Supine Straight Leg Raise 60 Internal Rotation 25 External Rotation 50 Right Passive Testing Position Supine Straight Leg Raise 65 Internal Rotation 30 External Rotation 43 PT-OP-L Special Tests Start: 12/10/20 17:16 Freq: Status: Active Protocol: Document 12/11/20 09:57 LRN (Rec: 12/11/20 11:17 LRN [id number]) Special Tests Lumbar Spine Special Tests Straight Leg Raise Test Results L 60, R 65 Comments Tight hamstrings PT-OP-M Strength Start: 02/04/21 17:16 Freq: Status: Active Protocol: Document 12/11/20 09:57 LRN (Rec: 12/11/20 11:17 LRN [id number]) Trunk Strength Trunk Manual Muscle Testing Core Stabilization Not able to maintain core stability with hip AB/AD testing. Core mostly stable with hip flex testing. Hip Strength Hip Manual Muscle Testing Right Flexion (L2) 5 Normal Abduction 3+ Fair+ Adduction 1 Trace Left Flexion (L2) 5 Normal Abduction 3+ Fair+ Adduction 3 Fair PT-OP-Q Treatments Start: 12/10/20 17:16 Freq: Status: Active Protocol: Document 12/15/20 10:33 LRN (Rec: 12/15/20 11:18 LRN [id number]) Therapeutic Exercises Supine Exercises TA tightening Supine Exercise Name TA tightening Reps/Minutes 4' Comments Pt not able to maintain TA tight due to abdominal breathing only. Chest breathing Supine Exercise Name Chest breathing Reps/Minutes 10' Comments Phys stim (self & PT asssisted ) and v. cuing SKTC Supine Exercise Name SKTC Side bilateral Reps/Minutes 4' Bridging Supine Exercise Name Bridging Reps/Minutes 1x Comments DC'd due to increase back pain . Manual Therapy Treatment Joint Mobilizations L5 Joint L5 Direction PA Oscillations Grade II Body Position Prone Self-Care/Home Management Treatment Education Patient Education Body Mechanics,Home Exercise Program Other Education Educated pt in log roll method of sit<>supine to protect the low back. Activities Self-Care/Home Management Activities I/S pt in HEP: SKTC & Chest breathing. If pt masters chest breathing he is to add TA tightening. PT-OP-R Modalities Start: 12/10/20 17:16 Freq: Status: Active Protocol: Document 12/15/20 10:33 LRN (Rec: 12/15/20 11:18 LRN [id number]) Electric Stimulation Electric Stimulation Interferential Current (IFC) Body Location L5 Duration (Minutes) 15 Target/Sweep Sweep Patient Position Hooklying Combined With Heat/Cold Hot Pack Hot Pack/Cold Pack Treatment Hot Pack Location Low back Patient Position Hooklying Treatment Duration (minutes) 15 Ultrasound Therapy Treatment Lower Back Treatment Duration (minutes) 8 Patient Position Prone Mode Setting Continuous Intensity Setting (w/cm2) 1.7 PT-OP-T Assessment and Plan Start: 12/10/20 17:16 Freq: Status: Active Protocol: Document 12/15/20 10:33 LRN (Rec: 12/15/20 11:18 LRN [id number]) Physical Therapy Assessment Goals Four Impairment Decreased trunk stability/ strength Short Term Goal (STG) Pt able to maintain core stability with movement or MMT of LE's. 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 LTG Duration 01/28/21 Three Impairment Decreased trunk mobility with pain Short Term Goal (STG) Pt is independent on a trunk flexibility home program. STG Duration 01/08/21 Snf Goal (LTG) Pt will be able to put on socks/shoes without. LTG Duration 01/28/21 Two Impairment KYARA at worst is 19/50 Short Term Goal (STG) Improve function per KYARA score no greater than 10/50 STG Duration 01/08/21 Snf Goal (LTG) Elimination of pain that evening after Working on boat. LTG Duration 03/11/21 One Impairment Lacks appropriate self care HEP Sales Representative Door To Door Goal (LTG) Pt will be independent with a progressive self care HEP LTG Duration 03/11/21 Assessment Summary Assessment Mechanical LBP due to prolonged and probably poor posturing in work/computer chair. Lumbar pain is with certain movements, primarily extension > flexion. Not as noticeable a restriction with extension > flexion. Did not check for possibly being stuck on R L5 lumbar facet with R rotation today. Ms tightness/ guarding was present in R lumbar paraspinals. Physical Therapy Plan Frequency and Duration Frequency of Treatment 2x/Week Plan of Care Start Date 12/11/20 Plan of Care End Date 03/11/21 Next Visit Focus/Plan Next Note Type Treatment Note Next Visit Plan Assess response to US/IFES to to paraspinals, review trunk stretch (SKTC) and add sitting trunk flex stretch. Add HEP: trunk flexibility ex's (JHONNY, sitting trunk rot, DKTC). Progress core strengthening ( TA) if pt able to chest breath and progress core stabilization, stability/core home program. Educate pt in proper posture (sit), and ergonomics for computer work. Address self care of walking dog & proper transfer training . End with MH or ICE/IFES [L5 ].
--- NOTE | 2020-12-18 15:48 | PT.OTN ---
Current Diagnoses Low back pain (12/18/20) Physical Therapy Treatment Note PT-OP-A Visit Information Start: 12/10/20 17:16 Freq: Status: Active Protocol: Document 12/18/20 14:26 LRN (Rec: 12/18/20 15:11 LRN [id number]) Out-Patient Physical Therapy Visit Information Visit Information Visit Type Treatment Note Visit Start Time 14:26 Visit Stop Time 15:21 Total Visit Minutes 55 Visit Number 3 Evaluation Information Evaluation Date 12/11/20 Precautions Precautions Blood pressure PT-OP-B Current Condition Start: 12/10/20 17:16 Freq: Status: Active Protocol: Document 12/11/20 09:57 LRN (Rec: 12/11/20 11:17 LRN [id number]) Current Condition History of Current Condition Onset Date 09/28/20 Current Complaints Low back Pain rated 2-9/10. History of Current Condition Pain that sometimes radiates/ wraps around the front ( parallel to pain). Thinks what has aggravated it is that he has been working from home , on computer, and could be posture or ergonomics. 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 Pt is R handed. Prior Treatments and Tests Dr Dias (for Dr. Wooten) offered ms relaxor and is taking Tylenol 3's also for his back pain that has helped to decrease his pain. Uses heating pad at home to help quite a bit. Dr. Dias (for Dr. Wooten) also gave prescription for Voltaren cream that is helpful . Developmental History Developmental History Insidious onset. At the time was working around the yard. Dull pain starting in the back , once wrapping around the chest really hurt and really bothered him. 2 nights ago was working on his generator and that evening the pain was really bad. Treatment Goals Patient/Caregiver Goals Elimination of pain. 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 Painful with putting on socks/ shoes daily. Prior Functional Status Baseline Function- ADL's Independent Baseline Function- Mobility Independent Current Functional Impairments (Reported) Functional Limitations- ADL's Pain Picking up dog (45, 55, 30) to put on lap. Painful with putting on socks/ shoes daily. Functional Limitations- Mobility/Gait Back can bother him with daily walking of dogs, that aggrevate it when dog pulls. 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 PT-OP-C Subjective Start: 12/10/20 17:16 Freq: Status: Active Protocol: Document 12/18/20 14:26 LRN (Rec: 12/18/20 15:11 LRN [id number]) OP-PT Subjective Patient Comments Patient Comments Last session helpful, numbness in low back. Was cutting trees, felt dull pain, not sharp pain. 0/10 pain currently. PT-OP-J Posture/Palpation/Skin Start: 12/10/20 17:16 Freq: Status: Active Protocol: Document 12/11/20 09:57 LRN (Rec: 12/11/20 11:17 LRN [id number]) Posture Evaluation Position Standing Head/C-Spine Posture Side Bent Left,Forward Head L-Spine Posture Increased Lordosis,Flexible Scoliosis on (L) Palpation Assessment Location Lumbar paraspinals Palpation Findings Muscle Guarding,Tenderness Palpation Details R > L QL Sacrum Palpation Findings Tenderness Palpation Details Increased temp PT-OP-K Range of Motion Start: 12/10/20 17:16 Freq: Status: Active Protocol: Document 12/11/20 09:57 LRN (Rec: 12/11/20 11:17 LRN [id number]) Lumbar Spine Range of Motion Lumbar Spine Active Degrees Testing Position Standing Flexion 60 Extension 0 Rotation Left 10 Rotation Right 10 Lateral Flexion Left 20 Lateral Flexion Right 10 Comments FF: 60/40 BB 10/10 SB L pain on L lateral trunk Rot R Rot L Hip Goniometric Range of Motion Hip Left Passive Testing Position Supine Straight Leg Raise 60 Internal Rotation 25 External Rotation 50 Right Passive Testing Position Supine Straight Leg Raise 65 Internal Rotation 30 External Rotation 43 PT-OP-L Special Tests Start: 12/10/20 17:16 Freq: Status: Active Protocol: Document 12/11/20 09:57 LRN (Rec: 12/11/20 11:17 LRN [id number]) Special Tests Lumbar Spine Special Tests Straight Leg Raise Test Results L 60, R 65 Comments Tight hamstrings PT-OP-M Strength Start: 12/10/20 17:16 Freq: Status: Active Protocol: Document 12/11/20 09:57 LRN (Rec: 12/11/20 11:17 LRN [id number]) Trunk Strength Trunk Manual Muscle Testing Core Stabilization Not able to maintain core stability with hip AB/AD testing. Core mostly stable with hip flex testing. Hip Strength Hip Manual Muscle Testing Right Flexion (L2) 5 Normal Abduction 3+ Fair+ Adduction 1 Trace Left Flexion (L2) 5 Normal Abduction 3+ Fair+ Adduction 3 Fair PT-OP-Q Treatments Start: 12/10/20 17:16 Freq: Status: Active Protocol: Document 12/18/20 14:26 LRN (Rec: 12/18/20 15:11 LRN [id number]) Cardio Equipment Treadmill Duration (Minutes) 7 Speed 1.6 Other phy cuing for TA, proper posturing Therapeutic Exercises Supine Exercises Iliopsoas stretch Supine Exercise Name On corner of plinth Side bilateral Reps/Minutes 5' extra time to find max tolerated position Comments L side tighter Standing Exercises Ilipspoas stretch Standing Exercise Name Hip Flexor stretch - multiple positions (runners, foot on stool) Side bilateral Reps/Minutes 8' Comments Much cuing for proper stretch Self-Care/Home Management Treatment Education Patient Education Home Exercise Program,Posture Other Education Educated pt in proper standing posture (wall standing) and educated pt in postural control strategies to stabilize the core when walking his dog. Activities Self-Care/Home Management Activities Issue & reviewed HEP: Ilipsoas stretch in standing & supine. PT-OP-R Modalities Start: 12/10/20 17:16 Freq: Status: Active Protocol: Document 12/18/20 14:26 LRN (Rec: 12/18/20 15:11 LRN [id number]) Electric Stimulation Electric Stimulation Interferential Current (IFC) Body Location L5 Duration (Minutes) 15 Intensity 17 Target/Sweep Sweep Patient Position Hooklying Combined With Heat/Cold Hot Pack Hot Pack/Cold Pack Treatment Hot Pack Location Low back Patient Position Hooklying Treatment Duration (minutes) 15 Ultrasound Therapy Treatment Lower Back Treatment Duration (minutes) 8 Patient Position Prone Mode Setting Continuous Intensity Setting (w/cm2) 1.7 PT-OP-T Assessment and Plan Start: 12/10/20 17:16 Freq: Status: Active Protocol: Document 12/18/20 14:26 LRN (Rec: 12/18/20 15:11 LRN [id number]) Physical Therapy Assessment Goals Four Impairment Decreased trunk stability/ strength Short Term Goal (STG) Pt able to maintain core stability with movement or MMT of LE's. 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 LTG Duration 01/28/21 Three Impairment Decreased trunk mobility with pain Short Term Goal (STG) Pt is independent on a trunk flexibility home program. STG Duration 01/08/21 Mcfp Goal (LTG) Pt will be able to put on socks/shoes without. LTG Duration 01/28/21 Two Impairment KYARA at worst is 19/50 Short Term Goal (STG) Improve function per KYARA score no greater than 10/50 STG Duration 01/08/21 Duplicating Machine Operator Goal (LTG) Elimination of pain that evening after Working on boat. LTG Duration 03/11/21 One Impairment Lacks appropriate self care HEP Mcfp Goal (LTG) Pt will be independent with a progressive self care HEP. (ISSUED HEP: Ilipsoas stretch in standing & supine) LTG Duration 03/11/21 (12/18/20: Progressing) Assessment Summary Assessment + response to US/IFES with pt getting relief of pain and going out to cut down trees, causing return of discomfort. Pt had onset of back discomfort on TM, possibly due to pt leaning forward with progression of time. Pt has excessive lumbar lordosis from weak TA and tight hip flexors , causing forward bend (at hips) posturing in standing Pt may need training with sports cord for dog walking and continual posture retraining. Physical Therapy Plan Frequency and Duration Frequency of Treatment 2x/Week Plan of Care Start Date 12/11/20 Plan of Care End Date 03/11/21 Next Visit Focus/Plan Next Note Type Treatment Note Next Visit Plan Review deep breathing, trunk stretch (SKTC) and add sitting trunk flex stretch. Add HEP: trunk flexibility ex's ( sitting trunk rot, DKTC). Progress core strengthening ( TA) if pt able to chest breath and progress core stabilization, stability/core home program. Educate pt in proper posture (sit) and train proper standing posture, and ergonomics for computer work. Address self care of walking dog & proper transfer training . Lifting training (of dogs). End with MH or ICE/IFES [L5] .
--- NOTE | 2020-12-25 17:26 | PT.OTN ---
Current Diagnoses Low back pain (12/25/20) Physical Therapy Treatment Note PT-OP-A Visit Information Start: 12/10/20 17:16 Freq: Status: Active Protocol: Document 12/25/20 09:09 LRN (Rec: 12/25/20 09:55 LRN [id number]) Out-Patient Physical Therapy Visit Information Visit Information Visit Type Treatment Note Visit Start Time 09:09 Visit Stop Time 10:47 Total Visit Minutes 38 Visit Number 4 Evaluation Information Evaluation Date 12/11/20 Precautions Precautions Blood pressure PT-OP-B Current Condition Start: 12/10/20 17:16 Freq: Status: Active Protocol: Document 12/11/20 09:57 LRN (Rec: 12/11/20 11:17 LRN [id number]) Current Condition History of Current Condition Onset Date 09/28/20 Current Complaints Low back Pain rated 2-9/10. History of Current Condition Pain that sometimes radiates/ wraps around the front ( parallel to pain). Thinks what has aggravated it is that he has been working from home , on computer, and could be posture or ergonomics. 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 Pt is R handed. Prior Treatments and Tests Dr Dias (for Dr. Wooten) offered ms relaxor and is taking Tylenol 3's also for his back pain that has helped to decrease his pain. Uses heating pad at home to help quite a bit. Dr. Dias (for Dr. Wooten) also gave prescription for Voltaren cream that is helpful . Developmental History Developmental History Insidious onset. At the time was working around the yard. Dull pain starting in the back , once wrapping around the chest really hurt and really bothered him. 2 nights ago was working on his generator and that evening the pain was really bad. Treatment Goals Patient/Caregiver Goals Elimination of pain. 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 Painful with putting on socks/ shoes daily. Prior Functional Status Baseline Function- ADL's Independent Baseline Function- Mobility Independent Current Functional Impairments (Reported) Functional Limitations- ADL's Pain Picking up dog (45, 55, 30) to put on lap. Painful with putting on socks/ shoes daily. Functional Limitations- Mobility/Gait Back can bother him with daily walking of dogs, that aggrevate it when dog pulls. 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 PT-OP-C Subjective Start: 12/10/20 17:16 Freq: Status: Active Protocol: Document 12/25/20 09:09 LRN (Rec: 12/25/20 09:55 LRN [id number]) OP-PT Subjective Patient Comments Patient Comments LBP 01/13, has been shovelling snow. Was good after last treatment until Sat morning to get 's car unstuck. Waiting for new computer chair (identical to the one he had) . PT-OP-J Posture/Palpation/Skin Start: 12/10/20 17:16 Freq: Status: Active Protocol: Document 12/11/20 09:57 LRN (Rec: 12/11/20 11:17 LRN [id number]) Posture Evaluation Position Standing Head/C-Spine Posture Side Bent Left,Forward Head L-Spine Posture Increased Lordosis,Flexible Scoliosis on (L) Palpation Assessment Location Lumbar paraspinals Palpation Findings Muscle Guarding,Tenderness Palpation Details R > L QL Sacrum Palpation Findings Tenderness Palpation Details Increased temp PT-OP-K Range of Motion Start: 12/10/20 17:16 Freq: Status: Active Protocol: Document 12/11/20 09:57 LRN (Rec: 12/11/20 11:17 LRN [id number]) Lumbar Spine Range of Motion Lumbar Spine Active Degrees Testing Position Standing Flexion 60 Extension 0 Rotation Left 10 Rotation Right 10 Lateral Flexion Left 20 Lateral Flexion Right 10 Comments FF: 60/40 BB 10/10 SB L pain on L lateral trunk Rot R Rot L Hip Goniometric Range of Motion Hip Left Passive Testing Position Supine Straight Leg Raise 60 Internal Rotation 25 External Rotation 50 Right Passive Testing Position Supine Straight Leg Raise 65 Internal Rotation 30 External Rotation 43 PT-OP-L Special Tests Start: 12/10/20 17:16 Freq: Status: Active Protocol: Document 12/11/20 09:57 LRN (Rec: 12/11/20 11:17 LRN [id number]) Special Tests Lumbar Spine Special Tests Straight Leg Raise Test Results L 60, R 65 Comments Tight hamstrings PT-OP-M Strength Start: 12/10/20 17:16 Freq: Status: Active Protocol: Document 12/11/20 09:57 LRN (Rec: 12/11/20 11:17 LRN [id number]) Trunk Strength Trunk Manual Muscle Testing Core Stabilization Not able to maintain core stability with hip AB/AD testing. Core mostly stable with hip flex testing. Hip Strength Hip Manual Muscle Testing Right Flexion (L2) 5 Normal Abduction 3+ Fair+ Adduction 1 Trace Left Flexion (L2) 5 Normal Abduction 3+ Fair+ Adduction 3 Fair PT-OP-Q Treatments Start: 12/10/20 17:16 Freq: Status: Active Protocol: Document 12/25/20 09:09 LRN (Rec: 12/25/20 09:55 LRN [id number]) Cardio Equipment Treadmill Duration (Minutes) 6 Speed 1.6 Other phy cuing for TA, proper posturing, time limited by LBP Therapeutic Exercises Supine Exercises Glut Set Supine Exercise Name Glut Set after Iliopsoas stretch. Side right Reps/Minutes 10x Single leg Bridge Supine Exercise Name Single leg bridge in a position similar to Ilipsoas stretch Side bilateral Reps/Minutes 10x 2 Comments Held R side after initial set due to onset of R lateral thigh pain Iliopsoas stretch Supine Exercise Name On corner of plinth Side bilateral Reps/Minutes 5' extra time to find max tolerated position Comments L side tighter SKTC Supine Exercise Name SKTC Side bilateral Reps/Minutes 4' Sitting Exercises Low Back stretch Sitting Exercise Name Forward bend (hands btn kees) Reps/Minutes 10 x 3 Comments DC'd due to pt getting lightheaded and shallow breathing. Self-Care/Home Management Treatment Education Patient Education Home Exercise Program Activities Self-Care/Home Management Activities Issued & reviewed HEP: *hip flexor stretch (adalberto GS in supine), *SKTC stretch. Extra time needed due to technilogical difficulties. PT-OP-R Modalities Start: 12/10/20 17:16 Freq: Status: Active Protocol: Document 12/18/20 14:26 LRN (Rec: 12/18/20 15:11 LRN [id number]) Electric Stimulation Electric Stimulation Interferential Current (IFC) Body Location L5 Duration (Minutes) 15 Intensity 17 Target/Sweep Sweep Patient Position Hooklying Combined With Heat/Cold Hot Pack Hot Pack/Cold Pack Treatment Hot Pack Location Low back Patient Position Hooklying Treatment Duration (minutes) 15 Ultrasound Therapy Treatment Lower Back Treatment Duration (minutes) 8 Patient Position Prone Mode Setting Continuous Intensity Setting (w/cm2) 1.7 PT-OP-T Assessment and Plan Start: 12/10/20 17:16 Freq: Status: Active Protocol: Document 12/25/20 09:09 LRN (Rec: 12/25/20 09:55 LRN [id number]) Physical Therapy Assessment Goals Four Impairment Decreased trunk stability/ strength Short Term Goal (STG) Pt able to maintain core stability with movement or MMT of LE's. STG Duration 01/08/21 Snf Goal (LTG) Pt able to pickle processor his dogs ( 30#, 45#, 55#) to put on his lap. LTG Duration 01/28/21 Three Impairment Decreased trunk mobility with pain Short Term Goal (STG) Pt is independent on a trunk flexibility home program. STG Duration 01/08/21 Pilot Can Router Goal (LTG) Pt will be able to put on socks/shoes without. LTG Duration 01/28/21 Two Impairment KYARA at worst is 19/50 Short Term Goal (STG) Improve function per KYARA score no greater than 10/50 STG Duration 01/08/21 Snf Goal (LTG) Elimination of pain that evening after Working on boat. LTG Duration 03/11/21 One Impairment Lacks appropriate self care HEP Snf Goal (LTG) Pt will be independent with a progressive self care HEP. (ISSUED HEP: *Ilipsoas stretch in standing & supine, *hip flexor stretch (adalberto GS in supine), *SKTC stretch. LTG Duration 03/11/21 (12/18/20: Progressing) Assessment Summary Assessment Pt has poor core control during exercise. It is difficult to actively stretch his R Iliopsoas (in supine) due to onset of R anterolateral thigh pain, possibly back related due to excessive lumbar ext with active stretch. Physical Therapy Plan Frequency and Duration Frequency of Treatment 2x/Week Plan of Care Start Date 12/11/20 Plan of Care End Date 03/11/21 Next Visit Focus/Plan Next Note Type Treatment Note Next Visit Plan Review deep breathing. Add HEP: trunk flexibility ex's ( sitting trunk rot, DKTC). Progress core strengthening ( TA) if pt able to chest breath and progress core stabilization, stability/core home program. Educate pt in proper posture (sit) and train proper standing posture, and ergonomics for computer work. Address self care of walking dog & proper transfer training . Lifting training (of dogs). End with MH or ICE/IFES [L5] .
--- NOTE | 2020-12-29 12:32 | PT.OTN ---
Current Diagnoses Low back pain (12/29/20) Physical Therapy Treatment Note PT-OP-A Visit Information Start: 12/10/20 17:16 Freq: Status: Active Protocol: Document 12/29/20 11:23 LRN (Rec: 12/29/20 12:29 LRN [id number]) Out-Patient Physical Therapy Visit Information Visit Information Visit Type Treatment Note Visit Start Time 11:23 Visit Stop Time 12:04 Total Visit Minutes 41 Visit Number 5 Evaluation Information Evaluation Date 12/11/20 Precautions Precautions Blood pressure PT-OP-B Current Condition Start: 12/10/20 17:16 Freq: Status: Active Protocol: Document 12/11/20 09:57 LRN (Rec: 12/11/20 11:17 LRN [id number]) Current Condition History of Current Condition Onset Date 09/28/20 Current Complaints Low back Pain rated 2-9/10. History of Current Condition Pain that sometimes radiates/ wraps around the front ( parallel to pain). Thinks what has aggravated it is that he has been working from home , on computer, and could be posture or ergonomics. 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 Pt is R handed. Prior Treatments and Tests Dr Dias (for Dr. Wooten) offered ms relaxor and is taking Tylenol 3's also for his back pain that has helped to decrease his pain. Uses heating pad at home to help quite a bit. Dr. Dias (for Dr. Wooten) also gave prescription for Voltaren cream that is helpful . Developmental History Developmental History Insidious onset. At the time was working around the yard. Dull pain starting in the back , once wrapping around the chest really hurt and really bothered him. 2 nights ago was working on his generator and that evening the pain was really bad. Treatment Goals Patient/Caregiver Goals Elimination of pain. 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 Painful with putting on socks/ shoes daily. Prior Functional Status Baseline Function- ADL's Independent Baseline Function- Mobility Independent Current Functional Impairments (Reported) Functional Limitations- ADL's Pain Picking up dog (45, 55, 30) to put on lap. Painful with putting on socks/ shoes daily. Functional Limitations- Mobility/Gait Back can bother him with daily walking of dogs, that aggrevate it when dog pulls. 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 PT-OP-C Subjective Start: 12/10/20 17:16 Freq: Status: Active Protocol: Document 12/29/20 11:23 LRN (Rec: 12/29/20 12:29 LRN [id number]) OP-PT Subjective Patient Comments Patient Comments States he still has LBP with walking of dog. PT-OP-J Posture/Palpation/Skin Start: 12/10/20 17:16 Freq: Status: Active Protocol: Document 12/11/20 09:57 LRN (Rec: 12/11/20 11:17 LRN [id number]) Posture Evaluation Position Standing Head/C-Spine Posture Side Bent Left,Forward Head L-Spine Posture Increased Lordosis,Flexible Scoliosis on (L) Palpation Assessment Location Lumbar paraspinals Palpation Findings Muscle Guarding,Tenderness Palpation Details R > L QL Sacrum Palpation Findings Tenderness Palpation Details Increased temp PT-OP-K Range of Motion Start: 12/10/20 17:16 Freq: Status: Active Protocol: Document 12/11/20 09:57 LRN (Rec: 12/11/20 11:17 LRN [id number]) Lumbar Spine Range of Motion Lumbar Spine Active Degrees Testing Position Standing Flexion 60 Extension 0 Rotation Left 10 Rotation Right 10 Lateral Flexion Left 20 Lateral Flexion Right 10 Comments FF: 60/40 BB 10/10 SB L pain on L lateral trunk Rot R Rot L Hip Goniometric Range of Motion Hip Left Passive Testing Position Supine Straight Leg Raise 60 Internal Rotation 25 External Rotation 50 Right Passive Testing Position Supine Straight Leg Raise 65 Internal Rotation 30 External Rotation 43 PT-OP-L Special Tests Start: 12/10/20 17:16 Freq: Status: Active Protocol: Document 12/11/20 09:57 LRN (Rec: 12/11/20 11:17 LRN [id number]) Special Tests Lumbar Spine Special Tests Straight Leg Raise Test Results L 60, R 65 Comments Tight hamstrings PT-OP-M Strength Start: 12/10/20 17:16 Freq: Status: Active Protocol: Document 12/11/20 09:57 LRN (Rec: 12/11/20 11:17 LRN [id number]) Trunk Strength Trunk Manual Muscle Testing Core Stabilization Not able to maintain core stability with hip AB/AD testing. Core mostly stable with hip flex testing. Hip Strength Hip Manual Muscle Testing Right Flexion (L2) 5 Normal Abduction 3+ Fair+ Adduction 1 Trace Left Flexion (L2) 5 Normal Abduction 3+ Fair+ Adduction 3 Fair PT-OP-Q Treatments Start: 12/10/20 17:16 Freq: Status: Active Protocol: Document 12/29/20 11:23 LRN (Rec: 12/29/20 12:29 LRN [id number]) Cardio Equipment Treadmill Duration (Minutes) 8 Speed 1.8 Incline 0 Other V cuing for upright posture, Abdominal tightening. Therapeutic Exercises Supine Exercises Trunk rot w/TA tightening Supine Exercise Name Trunk rot w/TA tightening Side bilateral Comments Pt able to tighten TA assisting with trunk extensors , not able to isolate Glut Set Supine Exercise Name Glut Set after Iliopsoas stretch. Side right Reps/Minutes 10x Iliopsoas stretch Supine Exercise Name Corner of plinth: R WINNIE passive stretch & AA stretch, L static stretch Side bilateral TA tightening Supine Exercise Name Stand, Sup, Sit: TA tightening and awareness training Reps/Minutes 18' Comments Able to in sup & sit after training, not able to do in standing. Chest breathing Supine Exercise Name Chest breathing Reps/Minutes 3' Comments Phys stim (PT asssisted) and v . cuing Sidelying Exercises Iliopsoas stretch Sidelying Exercise Name WINNIE stretch of Iliopsoas & Quad Side right Reps/Minutes 10' Standing Exercises Ilipspoas stretch Standing Exercise Name Hip Flexor stretch - multiple positions (runners stretch) Side right Reps/Minutes 4' Comments Much cuing for proper stretch PT-OP-R Modalities Start: 12/10/20 17:16 Freq: Status: Active Protocol: Document 12/18/20 14:26 LRN (Rec: 12/18/20 15:11 LRN [id number]) Electric Stimulation Electric Stimulation Interferential Current (IFC) Body Location L5 Duration (Minutes) 15 Intensity 17 Target/Sweep Sweep Patient Position Hooklying Combined With Heat/Cold Hot Pack Hot Pack/Cold Pack Treatment Hot Pack Location Low back Patient Position Hooklying Treatment Duration (minutes) 15 Ultrasound Therapy Treatment Lower Back Treatment Duration (minutes) 8 Patient Position Prone Mode Setting Continuous Intensity Setting (w/cm2) 1.7 PT-OP-T Assessment and Plan Start: 12/10/20 17:16 Freq: Status: Active Protocol: Document 12/29/20 11:23 LRN (Rec: 12/29/20 12:29 LRN [id number]) Physical Therapy Assessment Goals Four Impairment Decreased trunk stability/ strength Short Term Goal (STG) Pt able to maintain core stability with movement or MMT of LE's. 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 LTG Duration 01/28/21 Three Impairment Decreased trunk mobility with pain Short Term Goal (STG) Pt is independent on a trunk flexibility home program. STG Duration 01/08/21 Alf Goal (LTG) Pt will be able to put on socks/shoes without. LTG Duration 01/28/21 Two Impairment KYARA at worst is 19/50 Short Term Goal (STG) Improve function per KYARA score no greater than 10/50 STG Duration 01/08/21 Lens Inspector Goal (LTG) Elimination of pain that evening after Working on boat. LTG Duration 03/11/21 One Impairment Lacks appropriate self care HEP Alf Goal (LTG) Pt will be independent with a progressive self care HEP. TO DATE, ISSUED HEP: STRETCHES: *Ilipsoas stretch in standing & supine, *hip flexor stretch (adalberto GS in supine), *SKTC stretch INSTRUCTIONS: TA TIGHTENING ( sup, sit) LTG Duration 03/11/21 (12/29/20: Progressing) Assessment Summary Assessment Very poor TA control but pt showed greater awareness of TA contraction after extensive training and was able to do with breathing training. Pt R hip & Iliopsoas shows greater tightness and pain with stretching compared to the left; due to pt poor posturing in sitting (Leans right). Pt able to tighten TA assisting with trunk extensors, not able to isolate Physical Therapy Plan Frequency and Duration Frequency of Treatment 2x/Week Plan of Care Start Date 12/11/20 Plan of Care End Date 03/11/21 Next Visit Focus/Plan Next Note Type Treatment Note Next Visit Plan Pt to cx next appt and continue with home program if he is not able to hold TA 10secs or longer. Next visit: Review TA tightening. Add HEP: trunk flexibility ex's ( sitting trunk rot, DKTC). Progress core strengthening ( TA) if pt able to chest breath and progress core stabilization, stability/core home program. Educate pt in proper posture (sit) and train proper standing posture, and ergonomics for computer work. Address self care of walking dog & proper transfer training . Lifting training (of dogs). End with MH or ICE, possible IFES [L5].
--- NOTE | 2021-01-05 12:39 | PT-OP ANOTE ---
pt cx'd due to stomach flu
--- NOTE | 2021-01-07 16:34 | PT.OTN ---
Current Diagnoses Low back pain (01/07/21) Physical Therapy Treatment Note PT-OP-A Visit Information Start: 12/10/20 17:16 Freq: Status: Active Protocol: Document 01/07/21 12:50 LRN (Rec: 01/07/21 13:41 LRN [id number]) Out-Patient Physical Therapy Visit Information Visit Information Visit Type Treatment Note Visit Start Time 12:50 Visit Stop Time 13:40 Total Visit Minutes 50 Visit Number 6 Evaluation Information Evaluation Date 12/11/20 Precautions Precautions Blood pressure PT-OP-B Current Condition Start: 12/10/20 17:16 Freq: Status: Active Protocol: Document 12/11/20 09:57 LRN (Rec: 12/11/20 11:17 LRN [id number]) Current Condition History of Current Condition Onset Date 09/28/20 Current Complaints Low back Pain rated 2-9/10. History of Current Condition Pain that sometimes radiates/ wraps around the front ( parallel to pain). Thinks what has aggravated it is that he has been working from home , on computer, and could be posture or ergonomics. 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 Pt is R handed. Prior Treatments and Tests Dr Dias (for Dr. Wooten) offered ms relaxor and is taking Tylenol 3's also for his back pain that has helped to decrease his pain. Uses heating pad at home to help quite a bit. Dr. Dias (for Dr. Wooten) also gave prescription for Voltaren cream that is helpful . Developmental History Developmental History Insidious onset. At the time was working around the yard. Dull pain starting in the back , once wrapping around the chest really hurt and really bothered him. 2 nights ago was working on his generator and that evening the pain was really bad. Treatment Goals Patient/Caregiver Goals Elimination of pain. 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 Painful with putting on socks/ shoes daily. Prior Functional Status Baseline Function- ADL's Independent Baseline Function- Mobility Independent Current Functional Impairments (Reported) Functional Limitations- ADL's Pain Picking up dog (45, 55, 30) to put on lap. Painful with putting on socks/ shoes daily. Functional Limitations- Mobility/Gait Back can bother him with daily walking of dogs, that aggrevate it when dog pulls. 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 PT-OP-C Subjective Start: 12/10/20 17:16 Freq: Status: Active Protocol: Document 01/07/21 12:50 LRN (Rec: 01/07/21 13:41 LRN [id number]) OP-PT Subjective Patient Comments Patient Comments Still working on exercises. Stiffness in the leg muscles is still present. No pain wrapping around to the front. When working on a generator in his garage, had to keep changing positions. Dogs pull him forward causing back pain . If lifting dogs right, can lift without pain, otherwise still has pain. Pt reported increased back pain getting up from traction machine, not worse in intensity but worse in continued sore. PT-OP-J Posture/Palpation/Skin Start: 12/10/20 17:16 Freq: Status: Active Protocol: Document 12/11/20 09:57 LRN (Rec: 12/11/20 11:17 LRN [id number]) Posture Evaluation Position Standing Head/C-Spine Posture Side Bent Left,Forward Head L-Spine Posture Increased Lordosis,Flexible Scoliosis on (L) Palpation Assessment Location Lumbar paraspinals Palpation Findings Muscle Guarding,Tenderness Palpation Details R > L QL Sacrum Palpation Findings Tenderness Palpation Details Increased temp PT-OP-K Range of Motion Start: 12/10/20 17:16 Freq: Status: Active Protocol: Document 12/11/20 09:57 LRN (Rec: 12/11/20 11:17 LRN [id number]) Lumbar Spine Range of Motion Lumbar Spine Active Degrees Testing Position Standing Flexion 60 Extension 0 Rotation Left 10 Rotation Right 10 Lateral Flexion Left 20 Lateral Flexion Right 10 Comments FF: 60/40 BB 10/10 SB L pain on L lateral trunk Rot R Rot L Hip Goniometric Range of Motion Hip Left Passive Testing Position Supine Straight Leg Raise 60 Internal Rotation 25 External Rotation 50 Right Passive Testing Position Supine Straight Leg Raise 65 Internal Rotation 30 External Rotation 43 PT-OP-L Special Tests Start: 12/10/20 17:16 Freq: Status: Active Protocol: Document 12/11/20 09:57 LRN (Rec: 12/11/20 11:17 LRN [id number]) Special Tests Lumbar Spine Special Tests Straight Leg Raise Test Results L 60, R 65 Comments Tight hamstrings PT-OP-M Strength Start: 12/10/20 17:16 Freq: Status: Active Protocol: Document 12/11/20 09:57 LRN (Rec: 12/11/20 11:17 LRN [id number]) Trunk Strength Trunk Manual Muscle Testing Core Stabilization Not able to maintain core stability with hip AB/AD testing. Core mostly stable with hip flex testing. Hip Strength Hip Manual Muscle Testing Right Flexion (L2) 5 Normal Abduction 3+ Fair+ Adduction 1 Trace Left Flexion (L2) 5 Normal Abduction 3+ Fair+ Adduction 3 Fair PT-OP-Q Treatments Start: 12/10/20 17:16 Freq: Status: Active Protocol: Document 01/07/21 12:50 LRN (Rec: 01/07/21 13:41 LRN [id number]) Cardio Equipment Treadmill Duration (Minutes) 10 Speed 1.8 Incline 0 Other V cuing for upright posture, Abdominal tightening. Therapeutic Exercises Supine Exercises Iliopsoas stretch Supine Exercise Name Corner of plinth: R WINNIE passive stretch & AA stretch, L static stretch Side bilateral Comments Static stretch f/b active stretch. Extra time to modify ex for [email or web address] Supine Exercise Name SKTC Side bilateral Reps/Minutes 2' Comments review Prone Exercises Hip Ext/Lumbar ext Prone Exercise Name Hip Ext/Lumbar Ext Side bilateral Reps/Minutes 10x each Comments Extra time for training of proper performance (no trunk rot) Self-Care/Home Management Treatment Education Patient Education Pain Management Other Education I/S pt by phone to use ice ( cryotherapy) to the back 10' at time, every hour if needed. Pt I/S to avoid exercise for couple days, but to focus on pain management with use of ice. Pt to notify PT if pain worsens. PT-OP-R Modalities Start: 12/10/20 17:16 Freq: Status: Active Protocol: Document 01/07/21 12:50 LRN (Rec: 01/07/21 13:41 LRN [id number]) Spinal Traction Traction Treatment Lumbar Method Static Patient Position Prone Force Applied (Pounds) 90 Duration of Treatment (Minutes) 10 Traction Treatment Comment Truong Traction, small folded towel placed under chest at device end for comfort . Pt had no pain complaints in the back during treatment and was checked after 5' and at end for pain in prone position. Pt reported LBP coming off traction unit. PT-OP-T Assessment and Plan Start: 12/10/20 17:16 Freq: Status: Active Protocol: Document 01/07/21 12:50 LRN (Rec: 01/07/21 13:41 LRN [id number]) Physical Therapy Assessment Goals Four Impairment Decreased trunk stability/ strength Short Term Goal (STG) Pt able to maintain core stability with movement or MMT of LE's. 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 (01/07/21: Pt able to merchandise pickup/receiving associate a dog without pain if using proper body mechanics) LTG Duration 01/28/21 Three Impairment Decreased trunk mobility with pain Short Term Goal (STG) Pt is independent on a trunk flexibility home program. STG Duration 01/08/21 Quality Liaison Goal (LTG) Pt will be able to put on socks/shoes without. LTG Duration 01/28/21 Two Impairment KYARA at worst is 19/50 Short Term Goal (STG) Improve function per KYARA score no greater than 10/50 STG Duration 01/08/21 Quality Liaison Goal (LTG) Elimination of pain that evening after Working on boat. LTG Duration 03/11/21 One Impairment Lacks appropriate self care HEP Quality Liaison Goal (LTG) Pt will be independent with a progressive self care HEP. TO DATE, ISSUED HEP: STRETCHES: *Ilipsoas stretch in standing & supine, *hip flexor stretch (adalberto GS in supine), *SKTC stretch INSTRUCTIONS: TA TIGHTENING ( sup, sit) LTG Duration 03/11/21 (12/29/20: Progressing) Progress Towards Goals Progress Towards Goals Progressing Toward Goals Progress Comments Pt reports able to lift his dogs if done with proper body mechanics. Assessment Summary Assessment No change in bilateral leg stiffness with gait on TM. Pt had no change with bilateral leg stiffness after traction, and had low back pain getting off traction unit. Pt appears to be able to lift his dogs without back pain if performed with proper body mechanics. No change while dog walking. Pt is no longer having pain that wraps around to the front . Physical Therapy Plan Frequency and Duration Frequency of Treatment 2x/Week Plan of Care Start Date 12/11/20 Plan of Care End Date 03/11/21 Next Visit Focus/Plan Next Note Type Treatment Note Next Visit Plan Assess response to lumbar traction. Review TA tightening. Add HEP: trunk flexibility ex's (sitting trunk rot, DKTC). Progress core strengthening (TA) if pt able to chest breath and progress core stabilization, stability/core home program. Educate pt in proper posture ( sit) and train proper standing posture, and ergonomics for computer work. Address self care of walking dog & proper transfer training. Lifting training (of dogs). End with MH or ICE, possible IFES [L5].
--- NOTE | 2021-01-08 18:32 | PT-OP ANOTE ---
Per phone pt states his low back is sore and when lying supine or sidelie his R foot tingles. In standing he has no symptoms except back pain. Lying on his back with knees flexed helps reduce pain. States he has used ice to the back since last appt. Pt advised to use ice one more day but he could try using heat to the foot to reduce tingling and might try use of heat tonight to the back to reduce LBP/R foot tingling. Pt to call if needed for advise on LB/R LE.
--- NOTE | 2021-01-12 17:10 | PT.OTN ---
Current Diagnoses Low back pain (01/12/21) Physical Therapy Treatment Note PT-OP-A Visit Information Start: 12/10/20 17:16 Freq: Status: Active Protocol: Document 01/12/21 12:52 LRN (Rec: 01/12/21 13:41 LRN [id number]) Out-Patient Physical Therapy Visit Information Visit Information Visit Type Treatment Note Visit Start Time 12:51 Visit Stop Time 13:40 Total Visit Minutes 49 Visit Number 7 Evaluation Information Evaluation Date 12/11/20 Precautions Precautions Blood pressure PT-OP-B Current Condition Start: 12/10/20 17:16 Freq: Status: Active Protocol: Document 12/11/20 09:57 LRN (Rec: 12/11/20 11:17 LRN [id number]) Current Condition History of Current Condition Onset Date 09/28/20 Current Complaints Low back Pain rated 2-9/10. History of Current Condition Pain that sometimes radiates/ wraps around the front ( parallel to pain). Thinks what has aggravated it is that he has been working from home , on computer, and could be posture or ergonomics. 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 Pt is R handed. Prior Treatments and Tests Dr Dias (for Dr. Wooten) offered ms relaxor and is taking Tylenol 3's also for his back pain that has helped to decrease his pain. Uses heating pad at home to help quite a bit. Dr. Dias (for Dr. Wooten) also gave prescription for Voltaren cream that is helpful . Developmental History Developmental History Insidious onset. At the time was working around the yard. Dull pain starting in the back , once wrapping around the chest really hurt and really bothered him. 2 nights ago was working on his generator and that evening the pain was really bad. Treatment Goals Patient/Caregiver Goals Elimination of pain. 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 Painful with putting on socks/ shoes daily. Prior Functional Status Baseline Function- ADL's Independent Baseline Function- Mobility Independent Current Functional Impairments (Reported) Functional Limitations- ADL's Pain Picking up dog (45, 55, 30) to put on lap. Painful with putting on socks/ shoes daily. Functional Limitations- Mobility/Gait Back can bother him with daily walking of dogs, that aggrevate it when dog pulls. 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 PT-OP-C Subjective Start: 12/10/20 17:16 Freq: Status: Active Protocol: Document 01/12/21 12:52 LRN (Rec: 01/12/21 13:41 LRN [id number]) OP-PT Subjective Patient Comments Patient Comments ...............Monday was miserable, then Sat the R leg was numb, then Sun 3 toes numb , yesterday everything was fine. Today and yesterday no pain. Hasn't walked dogs but cleaned the chicken coop and didn't have any unnormal pain. Almost thinks he is better, feels like he has more mobility. PT-OP-J Posture/Palpation/Skin Start: 12/10/20 17:16 Freq: Status: Active Protocol: Document 12/11/20 09:57 LRN (Rec: 12/11/20 11:17 LRN [id number]) Posture Evaluation Position Standing Head/C-Spine Posture Side Bent Left,Forward Head L-Spine Posture Increased Lordosis,Flexible Scoliosis on (L) Palpation Assessment Location Lumbar paraspinals Palpation Findings Muscle Guarding,Tenderness Palpation Details R > L QL Sacrum Palpation Findings Tenderness Palpation Details Increased temp PT-OP-K Range of Motion Start: 12/10/20 17:16 Freq: Status: Active Protocol: Document 01/12/21 12:52 LRN (Rec: 01/12/21 13:41 LRN [id number]) Lumbar Spine Range of Motion Lumbar Spine Active Degrees Flexion 55 Extension 15 Lateral Flexion Left 20 Lateral Flexion Right 10 Comments FF: 55/40 BB 15/10 SB R pain on L lateral trunk Hip Goniometric Range of Motion Hip Left Passive Hip ROM WFL Yes Testing Position Supine Flexion w/Knee Flexed 120 Straight Leg Raise 55 Internal Rotation 35 External Rotation 60 Right Passive Hip ROM WFL No Testing Position Supine Flexion w/Knee Flexed 120 Straight Leg Raise 60 Internal Rotation 35 External Rotation 50 PT-OP-L Special Tests Start: 12/10/20 17:16 Freq: Status: Active Protocol: Document 12/11/20 09:57 LRN (Rec: 12/11/20 11:17 LRN [id number]) Special Tests Lumbar Spine Special Tests Straight Leg Raise Test Results L 60, R 65 Comments Tight hamstrings PT-OP-M Strength Start: 12/10/20 17:16 Freq: Status: Active Protocol: Document 12/11/20 09:57 LRN (Rec: 12/11/20 11:17 LRN [id number]) Trunk Strength Trunk Manual Muscle Testing Core Stabilization Not able to maintain core stability with hip AB/AD testing. Core mostly stable with hip flex testing. Hip Strength Hip Manual Muscle Testing Right Flexion (L2) 5 Normal Abduction 3+ Fair+ Adduction 1 Trace Left Flexion (L2) 5 Normal Abduction 3+ Fair+ Adduction 3 Fair PT-OP-Q Treatments Start: 12/10/20 17:16 Freq: Status: Active Protocol: Document 01/12/21 12:52 LRN (Rec: 01/12/21 13:41 LRN [id number]) Cardio Equipment Treadmill Duration (Minutes) 10 Speed 1.8 Incline 0 Other V cuing for upright posture, Abdominal tightening. Therapeutic Exercises Supine Exercises Fig 4 stretch Supine Exercise Name Fig 4 stretch f/b active stretch Side bilateral Reps/Minutes 6' Trunk rot w/TA tightening Supine Exercise Name Trunk rot w/TA tightening Side bilateral Reps/Minutes 5x each side Comments Pt able to tighten TA assisting with trunk extensors , not able to isolate SKTC Supine Exercise Name SKTC Side bilateral Reps/Minutes 4' Comments review Prone Exercises Hip Ext/Lumbar ext Prone Exercise Name JHONNY Reps/Minutes 2' Standing Exercises SB stretch to R Standing Exercise Name L QL stretch: R SB stretch Side right Reps/Minutes 10 hold x 10 Self-Care/Home Management Treatment Education Patient Education Home Exercise Program Activities Self-Care/Home Management Activities Issued & reviewed HEP: AROM lumbar rot in supine & Fig 4 hip stretch. PT-OP-R Modalities Start: 12/10/20 17:16 Freq: Status: Active Protocol: Document 01/07/21 12:50 LRN (Rec: 01/07/21 13:41 LRN [id number]) Spinal Traction Traction Treatment Lumbar Method Static Patient Position Prone Force Applied (Pounds) 90 Duration of Treatment (Minutes) 10 Traction Treatment Comment Truong Traction, small folded towel placed under chest at device end for comfort . Pt had no pain complaints in the back during treatment and was checked after 5' and at end for pain in prone position. Pt reported LBP coming off traction unit. PT-OP-T Assessment and Plan Start: 12/10/20 17:16 Freq: Status: Active Protocol: Document 01/12/21 12:52 LRN (Rec: 01/12/21 13:41 LRN [id number]) Physical Therapy Assessment Goals Four Impairment Decreased trunk stability/ strength Short Term Goal (STG) Pt able to maintain core stability with movement or MMT of LE's. 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 (01/07/21: Pt able to knot picker cloth a dog without pain if using proper body mechanics) LTG Duration 01/28/21 Three Impairment Decreased trunk mobility with pain Short Term Goal (STG) Pt is independent on a trunk flexibility home program. (01/12/21: Issued trunk rot and R SB stretch) STG Duration 01/08/21 (01/12/21: Progressing) Senior Living Goal (LTG) Pt will be able to put on socks/shoes without. (01/12/21: Putting on socks/ shoes gets a really good stretch in the low back). LTG Duration 01/28/21 (01/12/21: tolerance improving) Two Impairment KYARA at worst is 19/50 Short Term Goal (STG) Improve function per KYARA score no greater than 10/50 STG Duration 01/08/21 Senior Living Goal (LTG) Elimination of pain that evening after Working on boat. LTG Duration 03/11/21 One Impairment Lacks appropriate self care HEP State Federal Relations Deputy Director Goal (LTG) Pt will be independent with a progressive self care HEP. TO DATE, ISSUED HEP: STRETCHES: *Ilipsoas stretch in standing & supine, *hip flexor stretch (adalberto GS in supine), *SKTC stretch, *Fig 4 stretch INSTRUCTIONS: TA TIGHTENING ( sup, sit), *Standing Trunk R SB stretch LTG Duration 03/11/21 (01/12/21: Progressing) Progress Towards Goals Progress Comments Progressed HEP. Trunk active extension mobility improved from 0 deg's to 15 deg's. Hip Rotation mobility improved . Assessment Summary Assessment Pt had poor response to lumbar traction for initial 3 days after traction, but now pt is feeling no pain or neurological symptoms of the R hip/thigh, and is feeling more mobile overall. Pt appears ready for progression of a core stabilization program to include resisted rotation. He has low back tightness of trunk extensors and L QL. Physical Therapy Plan Frequency and Duration Frequency of Treatment 2x/Week Plan of Care Start Date 12/11/20 Plan of Care End Date 03/11/21 Next Visit Focus/Plan Next Note Type Treatment Note Next Visit Plan Review previously issued HEP ( sup trunk rot & fig 4 stretch - R > L) and standing R SB). Add HEP: trunk flexibility ex 's (sitting trunk rot). Progress core strengthening ( TA) if pt able to chest breath , progress core stabilization and home program. Educate pt in proper posture (sit) and train proper standing posture, and ergonomics for computer work. Address self care of walking dog & proper transfer training. Lifting training ( of dogs). End with MH or ICE, possible IFES [L5].
--- NOTE | 2021-01-14 17:00 | PT.OTN ---
Current Diagnoses Low back pain (01/14/21) Physical Therapy Treatment Note PT-OP-A Visit Information Start: 12/10/20 17:16 Freq: Status: Active Protocol: Document 01/14/21 12:51 LRN (Rec: 01/14/21 13:39 LRN [id number]) Out-Patient Physical Therapy Visit Information Visit Information Visit Type Treatment Note Visit Start Time 12:51 Visit Stop Time 13:35 Total Visit Minutes 44 Visit Number 8 Evaluation Information Evaluation Date 12/11/20 Precautions Precautions Blood pressure PT-OP-B Current Condition Start: 12/10/20 17:16 Freq: Status: Active Protocol: Document 12/11/20 09:57 LRN (Rec: 12/11/20 11:17 LRN [id number]) Current Condition History of Current Condition Onset Date 09/28/20 Current Complaints Low back Pain rated 2-9/10. History of Current Condition Pain that sometimes radiates/ wraps around the front ( parallel to pain). Thinks what has aggravated it is that he has been working from home , on computer, and could be posture or ergonomics. 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 Pt is R handed. Prior Treatments and Tests Dr Dias (for Dr. Wooten) offered ms relaxor and is taking Tylenol 3's also for his back pain that has helped to decrease his pain. Uses heating pad at home to help quite a bit. Dr. Dias (for Dr. Wooten) also gave prescription for Voltaren cream that is helpful . Developmental History Developmental History Insidious onset. At the time was working around the yard. Dull pain starting in the back , once wrapping around the chest really hurt and really bothered him. 2 nights ago was working on his generator and that evening the pain was really bad. Treatment Goals Patient/Caregiver Goals Elimination of pain. 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 Painful with putting on socks/ shoes daily. Prior Functional Status Baseline Function- ADL's Independent Baseline Function- Mobility Independent Current Functional Impairments (Reported) Functional Limitations- ADL's Pain Picking up dog (45, 55, 30) to put on lap. Painful with putting on socks/ shoes daily. Functional Limitations- Mobility/Gait Back can bother him with daily walking of dogs, that aggrevate it when dog pulls. 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 PT-OP-C Subjective Start: 12/10/20 17:16 Freq: Status: Active Protocol: Document 01/14/21 12:51 LRN (Rec: 01/14/21 13:39 LRN [id number]) OP-PT Subjective Patient Comments Patient Comments Didn't do exercises yesterday. Was pressure washing, and was cleaning 2 broken generators, so back was sore, even this morning. Not really sore to start. Has not walked dogs, will walk them tomorrow. PT-OP-J Posture/Palpation/Skin Start: 12/10/20 17:16 Freq: Status: Active Protocol: Document 12/11/20 09:57 LRN (Rec: 12/11/20 11:17 LRN [id number]) Posture Evaluation Position Standing Head/C-Spine Posture Side Bent Left,Forward Head L-Spine Posture Increased Lordosis,Flexible Scoliosis on (L) Palpation Assessment Location Lumbar paraspinals Palpation Findings Muscle Guarding,Tenderness Palpation Details R > L QL Sacrum Palpation Findings Tenderness Palpation Details Increased temp PT-OP-K Range of Motion Start: 12/10/20 17:16 Freq: Status: Active Protocol: Document 01/12/21 12:52 LRN (Rec: 01/12/21 13:41 LRN [id number]) Lumbar Spine Range of Motion Lumbar Spine Active Degrees Flexion 55 Extension 15 Lateral Flexion Left 20 Lateral Flexion Right 10 Comments FF: 55/40 BB 15/10 SB R pain on L lateral trunk Hip Goniometric Range of Motion Hip Left Passive Hip ROM WFL Yes Testing Position Supine Flexion w/Knee Flexed 120 Straight Leg Raise 55 Internal Rotation 35 External Rotation 60 Right Passive Hip ROM WFL No Testing Position Supine Flexion w/Knee Flexed 120 Straight Leg Raise 60 Internal Rotation 35 External Rotation 50 PT-OP-L Special Tests Start: 12/10/20 17:16 Freq: Status: Active Protocol: Document 12/11/20 09:57 LRN (Rec: 12/11/20 11:17 LRN [id number]) Special Tests Lumbar Spine Special Tests Straight Leg Raise Test Results L 60, R 65 Comments Tight hamstrings PT-OP-M Strength Start: 12/10/20 17:16 Freq: Status: Active Protocol: Document 12/11/20 09:57 LRN (Rec: 12/11/20 11:17 LRN [id number]) Trunk Strength Trunk Manual Muscle Testing Core Stabilization Not able to maintain core stability with hip AB/AD testing. Core mostly stable with hip flex testing. Hip Strength Hip Manual Muscle Testing Right Flexion (L2) 5 Normal Abduction 3+ Fair+ Adduction 1 Trace Left Flexion (L2) 5 Normal Abduction 3+ Fair+ Adduction 3 Fair PT-OP-Q Treatments Start: 12/10/20 17:16 Freq: Status: Active Protocol: Document 01/14/21 12:51 LRN (Rec: 01/14/21 13:39 LRN [id number]) Cardio Equipment Treadmill Duration (Minutes) 8 Speed 1.8 Incline 0 Therapeutic Exercises Supine Exercises Fig 4 stretch Supine Exercise Name Fig 4 stretch f/b active stretch Side bilateral Reps/Minutes 6' Comments Extra time to perform properly the active stretch Trunk rot w/TA tightening Supine Exercise Name Trunk rot w/TA tightening Side bilateral Reps/Minutes 5x each side Comments Pt able to tighten TA assisting with trunk extensors , not able to isolate TA tightening Supine Exercise Name TA Tightening Reps/Minutes 3' Chest breathing Supine Exercise Name Chest breathing Reps/Minutes 5' Comments Phys & v cuing needed. Pt hands on chest/abd for feedback Sitting Exercises Trunk rot stretch Sitting Exercise Name Rolling lg Red TB side to side Side bilateral Equipment Used Big Red Ball Reps/Minutes 6' Low Back stretch Sitting Exercise Name Forward Bend: Hands between knees stretch Reps/Minutes 3' Self-Care/Home Management Treatment Education Patient Education Home Exercise Program Activities Self-Care/Home Management Activities Issued & reviewed HEP: Core Stabilization ex Heel Slides. Reviewed HEP handout: AROM lumbar rot & Fig 4 stretch. PT-OP-R Modalities Start: 12/10/20 17:16 Freq: Status: Active Protocol: Document 01/07/21 12:50 LRN (Rec: 01/07/21 13:41 LRN [id number]) Spinal Traction Traction Treatment Lumbar Method Static Patient Position Prone Force Applied (Pounds) 90 Duration of Treatment (Minutes) 10 Traction Treatment Comment Truong Traction, small folded towel placed under chest at device end for comfort . Pt had no pain complaints in the back during treatment and was checked after 5' and at end for pain in prone position. Pt reported LBP coming off traction unit. PT-OP-T Assessment and Plan Start: 12/10/20 17:16 Freq: Status: Active Protocol: Document 01/14/21 12:51 LRN (Rec: 01/14/21 13:39 LRN [id number]) Physical Therapy Assessment Goals Four Impairment Decreased trunk stability/ strength Short Term Goal (STG) Pt able to maintain core stability with movement or MMT of LE's. STG Duration 01/08/21 Agricultural Equipment Sales Engineer Goal (LTG) Pt able to roll picker his dogs ( 30#, 45#, 55#) to put on his lap. (01/07/21: Pt able to roll picker a dog without pain if using proper body mechanics) LTG Duration 01/28/21 Three Impairment Decreased trunk mobility with pain Short Term Goal (STG) Pt is independent on a trunk flexibility home program. (01/12/21: Issued trunk rot and R SB stretch) STG Duration 01/08/21 (01/12/21: Progressing) Agricultural Equipment Sales Engineer Goal (LTG) Pt will be able to put on socks/shoes without. (01/12/21: Putting on socks/ shoes gets a really good stretch in the low back). LTG Duration 01/28/21 (01/12/21: tolerance improving) Two Impairment KYARA at worst is 19/50 Short Term Goal (STG) Improve function per KYARA score no greater than 10/50 STG Duration 01/08/21 [facility] Goal (LTG) Elimination of pain that evening after Working on boat. LTG Duration 03/11/21 One Impairment Lacks appropriate self care HEP Agricultural Equipment Sales Engineer Goal (LTG) Pt will be independent with a progressive self care HEP. TO DATE, ISSUED HEP: STRETCHES: *Ilipsoas stretch in standing & supine, *hip flexor stretch (adalberto GS in supine), *SKTC stretch, *Fig 4 stretch INSTRUCTIONS: TA TIGHTENING ( sup, sit), *Standing Trunk R SB stretch CORE STAB: *Heel Slides. LTG Duration 03/11/21 (01/12/21: Progressing) Progress Towards Goals Progress Towards Goals Slow Progress - Other Progress Comments Pt is having difficulty maintaining an abdominal contraction; therefore poor core stability. Assessment Summary Assessment Poor core stability during breathing with mostly abdominal movement and very minimal chest mvmt. Pt is having no pain with exercises; primary focus needs to be on core strengthening (especially TA) for his goal of picking up his dogs. Trunk rot strengthening and body mechanics review needed. Physical Therapy Plan Frequency and Duration Frequency of Treatment 2x/Week Plan of Care Start Date 12/11/20 Plan of Care End Date 03/11/21 Next Visit Focus/Plan Next Note Type Treatment Note Next Visit Plan Review previously issued ( standing R SB). Add HEP: trunk flexibility ex's ( sitting trunk flex & rot). Progress core strengthening ( TA), check if pt able to chest breath with TA hold. Progress core stabilization and home program. Review with pt proper posture (sit) and train proper standing posture, and ergonomics for computer work. Address self care of walking dog & proper transfer training, Lifting training (of dogs). End with ICE as needed.
--- NOTE | 2021-01-19 12:20 | PT-OP ANOTE ---
Cx, in line for COVID vaccination.
--- NOTE | 2021-01-22 16:02 | PT.OTN ---
Current Diagnoses Low back pain (01/22/21) Physical Therapy Treatment Note PT-OP-A Visit Information Start: 12/10/20 17:16 Freq: Status: Active Protocol: Document 01/22/21 13:34 LRN (Rec: 01/22/21 14:34 LRN [id number]) Out-Patient Physical Therapy Visit Information Visit Information Visit Type Treatment Note Visit Start Time 13:34 Visit Stop Time 14:20 Total Visit Minutes 56 Visit Number 9 Evaluation Information Evaluation Date 12/11/20 Precautions Precautions Blood pressure PT-OP-B Current Condition Start: 12/10/20 17:16 Freq: Status: Active Protocol: Document 12/11/20 09:57 LRN (Rec: 12/11/20 11:17 LRN [id number]) Current Condition History of Current Condition Onset Date 09/28/20 Current Complaints Low back Pain rated 2-9/10. History of Current Condition Pain that sometimes radiates/ wraps around the front ( parallel to pain). Thinks what has aggravated it is that he has been working from home , on computer, and could be posture or ergonomics. 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 Pt is R handed. Prior Treatments and Tests Dr Dias (for Dr. Wooten) offered ms relaxor and is taking Tylenol 3's also for his back pain that has helped to decrease his pain. Uses heating pad at home to help quite a bit. Dr. Dias (for Dr. Wooten) also gave prescription for Voltaren cream that is helpful . Developmental History Developmental History Insidious onset. At the time was working around the yard. Dull pain starting in the back , once wrapping around the chest really hurt and really bothered him. 2 nights ago was working on his generator and that evening the pain was really bad. Treatment Goals Patient/Caregiver Goals Elimination of pain. 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 Painful with putting on socks/ shoes daily. Prior Functional Status Baseline Function- ADL's Independent Baseline Function- Mobility Independent Current Functional Impairments (Reported) Functional Limitations- ADL's Pain Picking up dog (45, 55, 30) to put on lap. Painful with putting on socks/ shoes daily. Functional Limitations- Mobility/Gait Back can bother him with daily walking of dogs, that aggrevate it when dog pulls. 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 PT-OP-C Subjective Start: 12/10/20 17:16 Freq: Status: Active Protocol: Document 01/22/21 13:34 LRN (Rec: 01/22/21 14:34 LRN [id number]) OP-PT Subjective Patient Comments Patient Comments States pain is 1/10, same. Doing home exercises. Doesn't feel there is any improvement . PT-OP-J Posture/Palpation/Skin Start: 12/10/20 17:16 Freq: Status: Active Protocol: Document 12/11/20 09:57 LRN (Rec: 12/11/20 11:17 LRN [id number]) Posture Evaluation Position Standing Head/C-Spine Posture Side Bent Left,Forward Head L-Spine Posture Increased Lordosis,Flexible Scoliosis on (L) Palpation Assessment Location Lumbar paraspinals Palpation Findings Muscle Guarding,Tenderness Palpation Details R > L QL Sacrum Palpation Findings Tenderness Palpation Details Increased temp PT-OP-K Range of Motion Start: 12/10/20 17:16 Freq: Status: Active Protocol: Document 01/12/21 12:52 LRN (Rec: 01/12/21 13:41 LRN [id number]) Lumbar Spine Range of Motion Lumbar Spine Active Degrees Flexion 55 Extension 15 Lateral Flexion Left 20 Lateral Flexion Right 10 Comments FF: 55/40 BB 15/10 SB R pain on L lateral trunk Hip Goniometric Range of Motion Hip Left Passive Hip ROM WFL Yes Testing Position Supine Flexion w/Knee Flexed 120 Straight Leg Raise 55 Internal Rotation 35 External Rotation 60 Right Passive Hip ROM WFL No Testing Position Supine Flexion w/Knee Flexed 120 Straight Leg Raise 60 Internal Rotation 35 External Rotation 50 PT-OP-L Special Tests Start: 12/10/20 17:16 Freq: Status: Active Protocol: Document 12/11/20 09:57 LRN (Rec: 12/11/20 11:17 LRN [id number]) Special Tests Lumbar Spine Special Tests Straight Leg Raise Test Results L 60, R 65 Comments Tight hamstrings PT-OP-M Strength Start: 12/10/20 17:16 Freq: Status: Active Protocol: Document 12/11/20 09:57 LRN (Rec: 12/11/20 11:17 LRN [id number]) Trunk Strength Trunk Manual Muscle Testing Core Stabilization Not able to maintain core stability with hip AB/AD testing. Core mostly stable with hip flex testing. Hip Strength Hip Manual Muscle Testing Right Flexion (L2) 5 Normal Abduction 3+ Fair+ Adduction 1 Trace Left Flexion (L2) 5 Normal Abduction 3+ Fair+ Adduction 3 Fair PT-OP-Q Treatments Start: 12/10/20 17:16 Freq: Status: Active Protocol: Document 01/22/21 13:34 LRN (Rec: 01/22/21 14:34 LRN [id number]) Cardio Equipment Treadmill Duration (Minutes) 10 Speed 1.7 Incline 0 Therapeutic Exercises Supine Exercises TA/BKFO Supine Exercise Name TA/BKFO Side bilateral Reps/Minutes 6' Pec stretch Supine Exercise Name Laying on a 1/2 roll for Pec Stretch Reps/Minutes 3' Trunk rot w/TA tightening Supine Exercise Name Trunk rot w/TA tightening Side bilateral Reps/Minutes 5x each side Comments Pt able to tighten TA assisting with trunk extensors , not able to isolate TA tightening Supine Exercise Name TA Tightening Reps/Minutes 3' Chest breathing Supine Exercise Name Chest breathing Various times throughout treatment. Reps/Minutes 4' Comments Phys & v cuing needed. Pt hands on chest/abd for feedback Sitting Exercises Trunk rot stretch Sitting Exercise Name Sitting trunk rot Side bilateral Equipment Used 10 x 6 each Reps/Minutes 6' Low Back stretch Sitting Exercise Name Forward Bend: Hands between knees stretch Reps/Minutes 4' Standing Exercises Doorway Pec stretch Standing Exercise Name Pec stretch with chest breathing/core stabilizatioin training Reps/Minutes 5' Comments Much cuing needed at abdomen, chest and posterior intrascapular region SB stretch to R Standing Exercise Name L QL stretch: R SB stretch Side right Reps/Minutes 10 hold x 10 Self-Care/Home Management Treatment Education Patient Education Home Exercise Program Other Education Educated with handout issued on TA. Activities Self-Care/Home Management Activities Issued & reviewed HEP: Sitting stretches: *trunk rot, *flex, *rot w/flex. HEP: Stability/Core Strengthening Program. PT-OP-R Modalities Start: 12/10/20 17:16 Freq: Status: Active Protocol: Document 01/22/21 13:34 LRN (Rec: 01/22/21 15:43 LRN [id number]) Hot Pack/Cold Pack Treatment Cold Pack Location Back Patient Position Hooklying Treatment Duration (minutes) 10 Patient Tolerance Good PT-OP-T Assessment and Plan Start: 12/10/20 17:16 Freq: Status: Active Protocol: Document 01/22/21 13:34 LRN (Rec: 01/22/21 14:34 LRN [id number]) Physical Therapy Assessment Goals Four Impairment Decreased trunk stability/ strength Short Term Goal (STG) Pt able to maintain core stability with movement or MMT of LE's. STG Duration 01/08/21 Reception Clerk Goal (LTG) Pt able to pick pulling machine tender his dogs ( 30#, 45#, 55#) to put on his lap. (01/07/21: Pt able to pick pulling machine tender a dog without pain if using proper body mechanics) LTG Duration 01/28/21 Three Impairment Decreased trunk mobility with pain Short Term Goal (STG) Pt is independent on a trunk flexibility home program. (01/12/21: Issued trunk rot and R SB stretch) STG Duration 01/08/21 (01/12/21: Progressing) [facility] Goal (LTG) Pt will be able to put on socks/shoes without pain. (01/22/21: Putting on R socks/ shoes is difficult due to tighteness, no pain). LTG Duration 01/28/21 (01/22/21: MET GOAL) Two Impairment KYARA at worst is 19/50 Short Term Goal (STG) Improve function per KYARA score no greater than 10/50 STG Duration 01/08/21 [facility] Goal (LTG) Elimination of pain that evening after Working on boat. LTG Duration 03/11/21 One Impairment Lacks appropriate self care HEP Reception Clerk Goal (LTG) Pt will be independent with a progressive self care HEP. TO DATE, ISSUED HEP: STRETCHES: *Ilipsoas stretch in standing & supine, *hip flexor stretch (adalberto GS in supine), *SKTC stretch, *Fig 4 stretch; SITTING: *trunk rot, *trunk flex, *flex w/rot. INSTRUCTIONS: TA TIGHTENING ( sup, sit), *Standing Trunk R SB stretch CORE STAB: *Heel Slides, * BKFO, *Leg slide introduced. LTG Duration 03/11/21 (01/22/21: Progressing) Progress Towards Goals Progress Towards Goals Slow Progress due to Attendance Issues Progress Comments Pt missed last appt due to getting COVID vaccine. Pt HEP progressed. Assessment Summary Assessment Poor core stabiity awareness. Pt able to very slightly maintain stable core while breathing and somewhat improved with awareness after standing doorway pec stretch w /cuing for core stabilization. Pt is very stiff in thoracic spine with discomfort of upper T/S > Pec stretch felt while supine on 11/07 roll. Physical Therapy Plan Frequency and Duration Frequency of Treatment 2x/Week Plan of Care Start Date 12/11/20 Plan of Care End Date 03/11/21 Next Visit Focus/Plan Next Note Type Treatment Note Next Visit Plan Train ergonomics for computer work and log roll transfer with review of log roll technique (handout if needed). Review trunk flexibility ex's (sitting trunk flex & rot). Review progressive core stability/strengthening (TA) program last issued, and add trunk rotation strengthening with weight on Dual Pully. Check if pt able to chest breath with TA hold. Progress core stabilization and home program as appropriate. Review with pt proper posture (sit) and train proper standing posture. Address self care of walking dog, Lifting training (of dogs). End with ICE as needed.
--- NOTE | 2021-01-26 16:04 | PT.OTN ---
Current Diagnoses Low back pain (01/26/21) Physical Therapy Treatment Note PT-OP-A Visit Information Start: 12/10/20 17:16 Freq: Status: Active Protocol: Document 01/26/21 12:51 LRN (Rec: 01/26/21 13:38 LRN [id number]) Out-Patient Physical Therapy Visit Information Visit Information Visit Type Progress Note Visit Start Time 12:51 Visit Stop Time 13:37 Total Visit Minutes 46 Visit Number 10 Evaluation Information Evaluation Date 12/11/20 Precautions Precautions Blood pressure PT-OP-B Current Condition Start: 12/10/20 17:16 Freq: Status: Active Protocol: Document 12/11/20 09:57 LRN (Rec: 12/11/20 11:17 LRN [id number]) Current Condition History of Current Condition Onset Date 09/28/20 Current Complaints Low back Pain rated 2-9/10. History of Current Condition Pain that sometimes radiates/ wraps around the front ( parallel to pain). Thinks what has aggravated it is that he has been working from home , on computer, and could be posture or ergonomics. 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 Pt is R handed. Prior Treatments and Tests Dr Dias (for Dr. Wooten) offered ms relaxor and is taking Tylenol 3's also for his back pain that has helped to decrease his pain. Uses heating pad at home to help quite a bit. Dr. Dias (for Dr. Wooten) also gave prescription for Voltaren cream that is helpful . Developmental History Developmental History Insidious onset. At the time was working around the yard. Dull pain starting in the back , once wrapping around the chest really hurt and really bothered him. 2 nights ago was working on his generator and that evening the pain was really bad. Treatment Goals Patient/Caregiver Goals Elimination of pain. 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 Painful with putting on socks/ shoes daily. Prior Functional Status Baseline Function- ADL's Independent Baseline Function- Mobility Independent Current Functional Impairments (Reported) Functional Limitations- ADL's Pain Picking up dog (45, 55, 30) to put on lap. Painful with putting on socks/ shoes daily. Functional Limitations- Mobility/Gait Back can bother him with daily walking of dogs, that aggrevate it when dog pulls. 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 PT-OP-C Subjective Start: 12/10/20 17:16 Freq: Status: Active Protocol: Document 01/26/21 12:51 LRN (Rec: 01/26/21 13:38 LRN [id number]) OP-PT Subjective Patient Comments Patient Comments Did repairing his chainsaw and used it to cut up a 70' foot tree. States the chainsaw weighs ~30#. PT-OP-J Posture/Palpation/Skin Start: 12/10/20 17:16 Freq: Status: Active Protocol: Document 12/11/20 09:57 LRN (Rec: 12/11/20 11:17 LRN [id number]) Posture Evaluation Position Standing Head/C-Spine Posture Side Bent Left,Forward Head L-Spine Posture Increased Lordosis,Flexible Scoliosis on (L) Palpation Assessment Location Lumbar paraspinals Palpation Findings Muscle Guarding,Tenderness Palpation Details R > L QL Sacrum Palpation Findings Tenderness Palpation Details Increased temp PT-OP-K Range of Motion Start: 12/10/20 17:16 Freq: Status: Active Protocol: Document 01/26/21 12:51 LRN (Rec: 01/26/21 13:38 LRN [id number]) Hip Goniometric Range of Motion Hip Left Passive Straight Leg Raise 55 Internal Rotation 25 External Rotation 60 Right Passive Straight Leg Raise 60 Internal Rotation 25 External Rotation 55 PT-OP-L Special Tests Start: 12/10/20 17:16 Freq: Status: Active Protocol: Document 12/11/20 09:57 LRN (Rec: 12/11/20 11:17 LRN [id number]) Special Tests Lumbar Spine Special Tests Straight Leg Raise Test Results L 60, R 65 Comments Tight hamstrings PT-OP-M Strength Start: 12/10/20 17:16 Freq: Status: Active Protocol: Document 12/11/20 09:57 LRN (Rec: 12/11/20 11:17 LRN [id number]) Trunk Strength Trunk Manual Muscle Testing Core Stabilization Not able to maintain core stability with hip AB/AD testing. Core mostly stable with hip flex testing. Hip Strength Hip Manual Muscle Testing Right Flexion (L2) 5 Normal Abduction 3+ Fair+ Adduction 1 Trace Left Flexion (L2) 5 Normal Abduction 3+ Fair+ Adduction 3 Fair PT-OP-Q Treatments Start: 12/10/20 17:16 Freq: Status: Active Protocol: Document 01/26/21 12:51 LRN (Rec: 01/26/21 13:38 LRN [id number]) Therapeutic Exercises Supine Exercises Hamstring stretch Supine Exercise Name Hamstring/LE neural glide Side bilateral Reps/Minutes 7' Comments Extra time for finding max stretch, ROM taken Lateral Hip stretch Supine Exercise Name Lateral Hip stretch Side bilateral Reps/Minutes 6' Comments ROM taken Fig 4 stretch Supine Exercise Name Fig 4 stretch Side bilateral Reps/Minutes 6' Comments ROM taken Trunk rot w/TA tightening Supine Exercise Name Trunk rot w/TA tightening Side bilateral Reps/Minutes 10x each side Comments v cuing to tighten TA assisting with trunk extensors , not able to isolate Iliopsoas stretch Supine Exercise Name Iliopsoas stretch review Reps/Minutes 2' SKTC Supine Exercise Name SKTC Side bilateral Reps/Minutes 4' Self-Care/Home Management Treatment Education Patient Education Home Exercise Program Activities Self-Care/Home Management Activities Issued reviewed HEP: STRETCHES: Hip Fig4, Lateral Hip, Piriformis. PT-OP-R Modalities Start: 12/10/20 17:16 Freq: Status: Active Protocol: Document 01/26/21 12:51 LRN (Rec: 01/26/21 13:38 LRN [id number]) Ultrasound Therapy Treatment Lower Back Treatment Duration (minutes) 8 Patient Position Prone Coupling Medium Ultrasound Gel Applicator Size (cm2) 10 Mode Setting Continuous Duty Cycle 100% Intensity Setting (w/cm2) 1.5 PT-OP-T Assessment and Plan Start: 12/10/20 17:16 Freq: Status: Active Protocol: Document 01/26/21 12:51 LRN (Rec: 01/26/21 13:38 LRN [id number]) Physical Therapy Assessment Goals Four Impairment Decreased trunk stability/ strength Short Term Goal (STG) Pt able to maintain core stability with movement or MMT of LE's. STG Duration 01/08/21 Halfway Goal (LTG) Pt able to shrimp picker his dogs ( 30#, 45#, 55#) to put on his lap. (01/07/21: Pt able to shrimp picker a dog without pain if using proper body mechanics) LTG Duration 01/28/21 Three Impairment Decreased trunk mobility with pain Short Term Goal (STG) Pt is independent on a trunk flexibility home program. (01/26/21: Issued trunk rot and R SB stretch) STG Duration 01/08/21 (01/12/21: Progressing) Insulation Board Back Tender Goal (LTG) Pt will be able to put on socks/shoes without pain. (01/22/21: Putting on R socks/ shoes is difficult due to tightness, no pain). LTG Duration 01/28/21 (01/22/21: MET GOAL) Two Impairment KYARA at worst is 19/50 Short Term Goal (STG) Improve function per KYARA score no greater than 10/50 STG Duration 01/08/21 Halfway Goal (LTG) Elimination of pain that evening after Working on boat. LTG Duration 03/11/21 One Impairment Lacks appropriate self care HEP Halfway Goal (LTG) Pt will be independent with a progressive self care HEP. TO DATE, ISSUED HEP: STRETCHES: *Ilipsoas stretch in standing & supine, *hip flexor stretch (adalberto GS in supine), *SKTC stretch, *Fig 4 stretch; *lateral hip, * Piriformis. SITTING: *trunk rot, *trunk flex, *flex w/rot. INSTRUCTIONS: TA TIGHTENING ( sup, sit), *Standing Trunk R SB stretch CORE STAB: *Heel Slides, * BKFO, *Leg slide introduced. LTG Duration 03/11/21 (01/26/21: Progressing) Progress Towards Goals Progress Comments Progressed HEP. Assessment Summary Assessment Pt pain complaints have not changed since last session, but he does demonstrate improved log roll transfer technique. Per subjective reports he is doing very physical activities that may be hindering his back rehabilitation, but further imaging may be beneficial to determine if there is an internal soft tissue or mechanical reason for his pain . The pt is unable to maintain tightening of his abdominal muscles that can't be determined if it is lack of attention or habitual in nature. The pt would benefit from further core strengthening but further imaging to rule out a soft tissue/neural or mechanical dysfunction would be recommended. Physical Therapy Plan Frequency and Duration Frequency of Treatment 2x/Week Plan of Care Start Date 12/11/20 Plan of Care End Date 03/11/21 Other Referrals/Consults Referrals/Consults Recommended Recommend further MRI of lumbar spine. Next Visit Focus/Plan Next Note Type Treatment Note Next Visit Plan Train ergonomics for computer work. Review trunk flexibility ex's (sitting trunk flex & rot). Strengthen trunk, nora rot (dual pully, PNF patterns) & review progressive core stability/ strengthening (TA) program last issued. Check if pt able to chest breath with TA hold. Review with pt proper posture (sit) and train proper standing posture. Address self care of walking dog, Lifting training (of dogs ). End with ICE as needed.
--- NOTE | 2021-01-28 16:29 | PT.OTN ---
Current Diagnoses Low back pain (01/28/21) Physical Therapy Treatment Note PT-OP-A Visit Information Start: 12/10/20 17:16 Freq: Status: Active Protocol: Document 01/28/21 12:47 LRN (Rec: 01/28/21 14:28 LRN [id number]) Out-Patient Physical Therapy Visit Information Visit Information Visit Type Treatment Note Visit Start Time 12:47 Visit Stop Time 13:35 Total Visit Minutes 48 Visit Number 11 Evaluation Information Evaluation Date 12/11/20 Precautions Precautions Blood pressure PT-OP-B Current Condition Start: 12/10/20 17:16 Freq: Status: Active Protocol: Document 12/11/20 09:57 LRN (Rec: 12/11/20 11:17 LRN [id number]) Current Condition History of Current Condition Onset Date 09/28/20 Current Complaints Low back Pain rated 2-9/10. History of Current Condition Pain that sometimes radiates/ wraps around the front ( parallel to pain). Thinks what has aggravated it is that he has been working from home , on computer, and could be posture or ergonomics. 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 Pt is R handed. Prior Treatments and Tests Dr Dias (for Dr. Wooten) offered ms relaxor and is taking Tylenol 3's also for his back pain that has helped to decrease his pain. Uses heating pad at home to help quite a bit. Dr. Dias (for Dr. Wooten) also gave prescription for Voltaren cream that is helpful . Developmental History Developmental History Insidious onset. At the time was working around the yard. Dull pain starting in the back , once wrapping around the chest really hurt and really bothered him. 2 nights ago was working on his generator and that evening the pain was really bad. Treatment Goals Patient/Caregiver Goals Elimination of pain. 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 Painful with putting on socks/ shoes daily. Prior Functional Status Baseline Function- ADL's Independent Baseline Function- Mobility Independent Current Functional Impairments (Reported) Functional Limitations- ADL's Pain Picking up dog (45, 55, 30) to put on lap. Painful with putting on socks/ shoes daily. Functional Limitations- Mobility/Gait Back can bother him with daily walking of dogs, that aggrevate it when dog pulls. 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 PT-OP-C Subjective Start: 12/10/20 17:16 Freq: Status: Active Protocol: Document 01/28/21 12:47 LRN (Rec: 01/28/21 14:28 LRN [id number]) OP-PT Subjective Patient Comments Patient Comments Feeling good because didn't do anything yesterday because of inclement weather. PT-OP-J Posture/Palpation/Skin Start: 12/10/20 17:16 Freq: Status: Active Protocol: Document 12/11/20 09:57 LRN (Rec: 12/11/20 11:17 LRN [id number]) Posture Evaluation Position Standing Head/C-Spine Posture Side Bent Left,Forward Head L-Spine Posture Increased Lordosis,Flexible Scoliosis on (L) Palpation Assessment Location Lumbar paraspinals Palpation Findings Muscle Guarding,Tenderness Palpation Details R > L QL Sacrum Palpation Findings Tenderness Palpation Details Increased temp PT-OP-K Range of Motion Start: 12/10/20 17:16 Freq: Status: Active Protocol: Document 01/26/21 12:51 LRN (Rec: 01/26/21 13:38 LRN [id number]) Hip Goniometric Range of Motion Hip Left Passive Straight Leg Raise 55 Internal Rotation 25 External Rotation 60 Right Passive Straight Leg Raise 60 Internal Rotation 25 External Rotation 55 PT-OP-L Special Tests Start: 12/10/20 17:16 Freq: Status: Active Protocol: Document 12/11/20 09:57 LRN (Rec: 12/11/20 11:17 LRN [id number]) Special Tests Lumbar Spine Special Tests Straight Leg Raise Test Results L 60, R 65 Comments Tight hamstrings PT-OP-M Strength Start: 12/10/20 17:16 Freq: Status: Active Protocol: Document 12/11/20 09:57 LRN (Rec: 12/11/20 11:17 LRN [id number]) Trunk Strength Trunk Manual Muscle Testing Core Stabilization Not able to maintain core stability with hip AB/AD testing. Core mostly stable with hip flex testing. Hip Strength Hip Manual Muscle Testing Right Flexion (L2) 5 Normal Abduction 3+ Fair+ Adduction 1 Trace Left Flexion (L2) 5 Normal Abduction 3+ Fair+ Adduction 3 Fair PT-OP-Q Treatments Start: 12/10/20 17:16 Freq: Status: Active Protocol: Document 01/28/21 12:47 LRN (Rec: 01/28/21 14:28 LRN [id number]) Gym Equipment Cable Column (Body Solid) Sitting trunk rot Details Sitting trunk rot Resistance 20# > 10# > Lev 3 TB Reps/Time 5x, 10x, 15x respectively, each direction, Wood Chop Details Wood Chop Resistance 10# Reps/Time 15x each direction Golf Swing Details Golf Swing Resistance 10# Reps/Time 15x 2 Trunk Rot Details Caramel Candy Maker Helper slightly above umbilical height Resistance 20# Reps/Time 15x [address] Therapeutic Exercises Sitting Exercises Trunk rot stretch Sitting Exercise Name Sitting trunk rot Side bilateral Equipment Used 20 x 3 each Reps/Minutes 4' Low Back stretch Sitting Exercise Name Forward Bend: Hands between knees stretch Reps/Minutes 2' Standing Exercises PNF: Wood Chop Standing Exercise Name Wood Chop PNF: Golf Swing Standing Exercise Name Golf Swing Side bilateral Equipment Used Lev 2 Reps/Minutes Max tolerance Comments Switched to sitting Self-Care/Home Management Treatment Education Patient Education Home Exercise Program Other Education Discussed plan of care and extended time between next visit ~1.5 weeks, for pt to work on abdominal rotation strengthening with minimal stress on low back. Reviewed core anatomy and standing posture to achieve maximal abdominal contraction and lessening the stress on the low back. Activities Self-Care/Home Management Activities Issued & reviewed HEP: PNF: Golf Swing & Wood Chop. Issued White strap and Lev 3 & Lev 5 TBand for pt to progress with. PT-OP-R Modalities Start: 12/10/20 17:16 Freq: Status: Active Protocol: Document 01/26/21 12:51 LRN (Rec: 01/26/21 13:38 LRN [id number]) Ultrasound Therapy Treatment Lower Back Treatment Duration (minutes) 8 Patient Position Prone Coupling Medium Ultrasound Gel Applicator Size (cm2) 10 Mode Setting Continuous Duty Cycle 100% Intensity Setting (w/cm2) 1.5 PT-OP-T Assessment and Plan Start: 12/10/20 17:16 Freq: Status: Active Protocol: Document 01/28/21 12:47 LRN (Rec: 01/28/21 14:28 LRN [id number]) Physical Therapy Assessment Goals Four Impairment Decreased trunk stability/ strength Short Term Goal (STG) Pt able to maintain core stability with movement or MMT of LE's. STG Duration 01/08/21 Grader Tender Goal (LTG) Pt able to tack picker his dogs ( 30#, 45#, 55#) to put on his lap. (01/07/21: Pt able to tack picker a dog without pain if using proper body mechanics). (01/28/21: Pt was able to tack picker one dog from standing position without pain). LTG Duration 01/28/21 Three Impairment Decreased trunk mobility with pain Short Term Goal (STG) Pt is independent on a trunk flexibility home program. (01/26/21: Issued trunk rot and R SB stretch) STG Duration 01/08/21 (01/12/21: Progressing) Grader Tender Goal (LTG) Pt will be able to put on socks/shoes without pain. (01/22/21: Putting on R socks/ shoes is difficult due to tightness, no pain). LTG Duration 01/28/21 (01/22/21: MET GOAL) Two Impairment KYARA at worst is 19/50 Short Term Goal (STG) Improve function per KYARA score no greater than 10/50 STG Duration 01/08/21 Fpc Goal (LTG) Elimination of pain that evening after Working on boat. LTG Duration 03/11/21 One Impairment Lacks appropriate self care HEP Grader Tender Goal (LTG) Pt will be independent with a progressive self care HEP. TO DATE, ISSUED HEP: STRETCHES: *Ilipsoas stretch in standing & supine, *hip flexor stretch (adalberto GS in supine), *SKTC stretch, *Fig 4 stretch; *lateral hip, * Piriformis. SITTING: *trunk rot, *trunk flex, *flex w/rot. INSTRUCTIONS: TA TIGHTENING ( sup, sit), *Standing Trunk R SB stretch CORE STAB: *Heel Slides, * BKFO, *Leg slide introduced, * TA for PNF: Wood Chop & Golf Swing. LTG Duration 03/11/21 (01/28/21: Progressing) Progress Towards Goals Progress Comments Progressed HEP. Goal #4: Pt was able to tack picker one of his dogs from standing without pain Assessment Summary Assessment Pt does well with LB stretches in sitting with relief of LB discomfort from exericses. Extra time needed to help pt determine proper form with trunk rot exer's to minimize LB discomfort and maximize abdominal strengthening throughout exercise. Pt stands with excess tilt of sacrum and protruding abdomen, although he is getting better at tightening the TA. He still has difficulty holding TA while breathing. Physical Therapy Plan Frequency and Duration Frequency of Treatment 2x/Week Plan of Care Start Date 12/11/20 Plan of Care End Date 03/11/21 Next Visit Focus/Plan Next Note Type Treatment Note Next Visit Plan Train ergonomics for [employer] work. Add/Issue HEP: Hamstring stretches. Strengthen anterior trunk (TA) , nora rot (dual pully, PNF patterns) & review progressive core stability/strengthening (TA) program last issued. Continual check if pt able to chest breath with TA hold. Review with pt proper posture (sit) and train proper standing posture. Address self care of walking dog, Lifting training (of dogs). End with ICE as needed.
--- NOTE | 2021-02-04 14:07 | PT-OP ANOTE ---
Per phone conversation pt thought her appointment was tomorrow. Recommended pt call tomorrow for possible cancellations to get in this week if she wants, otherwise pt will be seen at her next scheduled visit 02/19/21.
--- NOTE | 2021-02-04 14:18 | PT.OTN ---
Current Diagnoses Low back pain (02/04/21) Physical Therapy Treatment Note PT-OP-A Visit Information Start: 12/10/20 17:16 Freq: Status: Active Protocol: Document 02/04/21 12:49 LRN (Rec: 02/04/21 14:02 LRN [id number]) Out-Patient Physical Therapy Visit Information Visit Information Visit Type Treatment Note Visit Start Time 12:49 Visit Stop Time 13:39 Total Visit Minutes 50 Visit Number 12 PT-OP-B Current Condition Start: 12/10/20 17:16 Freq: Status: Active Protocol: Document 12/11/20 09:57 LRN (Rec: 12/11/20 11:17 LRN [id number]) Current Condition History of Current Condition Onset Date 09/28/20 Current Complaints Low back Pain rated 2-9/10. History of Current Condition Pain that sometimes radiates/ wraps around the front ( parallel to pain). Thinks what has aggravated it is that he has been working from home , on computer, and could be posture or ergonomics. 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 Pt is R handed. Prior Treatments and Tests Dr Dias (for Dr. Wooten) offered ms relaxor and is taking Tylenol 3's also for his back pain that has helped to decrease his pain. Uses heating pad at home to help quite a bit. Dr. Dias (for Dr. Wooten) also gave prescription for Voltaren cream that is helpful . Developmental History Developmental History Insidious onset. At the time was working around the yard. Dull pain starting in the back , once wrapping around the chest really hurt and really bothered him. 2 nights ago was working on his generator and that evening the pain was really bad. Treatment Goals Patient/Caregiver Goals Elimination of pain. 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 Painful with putting on socks/ shoes daily. Prior Functional Status Baseline Function- ADL's Independent Baseline Function- Mobility Independent Current Functional Impairments (Reported) Functional Limitations- ADL's Pain Picking up dog (45, 55, 30) to put on lap. Painful with putting on socks/ shoes daily. Functional Limitations- Mobility/Gait Back can bother him with daily walking of dogs, that aggrevate it when dog pulls. 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 PT-OP-C Subjective Start: 12/10/20 17:16 Freq: Status: Active Protocol: Document 02/04/21 12:49 LRN (Rec: 02/04/21 14:02 LRN [id number]) OP-PT Subjective Patient Comments Patient Comments Has been cutting up a tree trunk and hauling the pieces to a hold pile. Worse than a week ago. Got a back brace to work outside and finds it helpful. Patient Questionnaires Oswestry Low Back Index Oswestry Score 9 Oswestry Impairment 1 to 19% Impaired (Score 1-19) OP-PT Pain Assessment Location Low back Pain Location Details Low back that wraps around trunk, pain ranges from 2-9 intensity Intensity 7 Scale Used Numeric (0 - 10) Description Sharp,Shooting Frequency Intermittent Pain Aggravating Factors Activity PT-OP-J Posture/Palpation/Skin Start: 12/10/20 17:16 Freq: Status: Active Protocol: Document 12/11/20 09:57 LRN (Rec: 12/11/20 11:17 LRN [id number]) Posture Evaluation Position Standing Head/C-Spine Posture Side Bent Left,Forward Head L-Spine Posture Increased Lordosis,Flexible Scoliosis on (L) Palpation Assessment Location Lumbar paraspinals Palpation Findings Muscle Guarding,Tenderness Palpation Details R > L QL Sacrum Palpation Findings Tenderness Palpation Details Increased temp PT-OP-K Range of Motion Start: 12/10/20 17:16 Freq: Status: Active Protocol: Document 01/26/21 12:51 LRN (Rec: 01/26/21 13:38 LRN [id number]) Hip Goniometric Range of Motion Hip Left Passive Straight Leg Raise 55 Internal Rotation 25 External Rotation 60 Right Passive Straight Leg Raise 60 Internal Rotation 25 External Rotation 55 PT-OP-L Special Tests Start: 12/10/20 17:16 Freq: Status: Active Protocol: Document 02/04/21 12:49 LRN (Rec: 02/04/21 14:02 LRN [id number]) Special Tests Lumbar Spine Special Tests Straight Leg Raise Test Results 60 deg's L, 65 deg's R Comments + test. PT-OP-M Strength Start: 12/10/20 17:16 Freq: Status: Active Protocol: Document 12/11/20 09:57 LRN (Rec: 12/11/20 11:17 LRN [id number]) Trunk Strength Trunk Manual Muscle Testing Core Stabilization Not able to maintain core stability with hip AB/AD testing. Core mostly stable with hip flex testing. Hip Strength Hip Manual Muscle Testing Right Flexion (L2) 5 Normal Abduction 3+ Fair+ Adduction 1 Trace Left Flexion (L2) 5 Normal Abduction 3+ Fair+ Adduction 3 Fair PT-OP-Q Treatments Start: 12/10/20 17:16 Freq: Status: Active Protocol: Document 02/04/21 12:49 LRN (Rec: 02/04/21 14:02 LRN [id number]) Therapeutic Exercises Supine Exercises TA/Leg lifts Supine Exercise Name TA with Leg lifts Side bilateral Resistance 8' TA/Heel slides Supine Exercise Name TA with Heel slides Side bilateral Reps/Minutes 8' TA/BKFO Supine Exercise Name TA w/BKFO Side bilateral Reps/Minutes 8' Sitting Exercises Hamstring stretch Sitting Exercise Name Single Leg Hamstring stretch Side bilateral Reps/Minutes 5' Standing Exercises Double leg Hamstring stretch Standing Exercise Name Double leg Hamstring stretch Reps/Minutes 2' Single leg Hamstring stretch Standing Exercise Name Single leg Hamstring stretch Side bilateral Reps/Minutes 4' Self-Care/Home Management Treatment Education Patient Education Body Mechanics,Posture Other Education 12' Educated pt in stress on back with different postures and education, safe body mechanics, posturing in sitting at computer, . Discussed mechanics of sitting at his computer and mechanics of his working out in the yard. Activities Self-Care/Home Management Activities Issued & reviewed handouts for Safe Body Mechanics and Proper posture. Issued & reviewed HEP: Hamstring stretch in sitting, standing with foot up on stool , & FB standing PT-OP-R Modalities Start: 12/10/20 17:16 Freq: Status: Active Protocol: Document 01/26/21 12:51 LRN (Rec: 01/26/21 13:38 LRN [id number]) Ultrasound Therapy Treatment Lower Back Treatment Duration (minutes) 8 Patient Position Prone Coupling Medium Ultrasound Gel Applicator Size (cm2) 10 Mode Setting Continuous Duty Cycle 100% Intensity Setting (w/cm2) 1.5 PT-OP-T Assessment and Plan Start: 12/10/20 17:16 Freq: Status: Active Protocol: Document 02/04/21 12:49 LRN (Rec: 02/04/21 14:02 LRN [id number]) Physical Therapy Assessment Goals Four Impairment Decreased trunk stability/ strength Short Term Goal (STG) Pt able to maintain core stability with movement or MMT of LE's. 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 (01/07/21: Pt able to picker tender helper a dog without pain if using proper body mechanics). (01/28/21: Pt was able to picker tender helper one dog from standing position without pain). LTG Duration 01/28/21 (02/04/21: NOT MET) Three Impairment Decreased trunk mobility with pain Short Term Goal (STG) Pt is independent on a trunk flexibility home program. (01/26/21: Issued trunk rot and R SB stretch) STG Duration 01/08/21 (01/12/21: Progressing) Social Media Campaign Manager Goal (LTG) Pt will be able to put on socks/shoes without pain. (01/22/21: Putting on R socks/ shoes is difficult due to tightness, no pain). LTG Duration 01/28/21 (01/22/21: MET GOAL) Two Impairment KYARA at worst is 19/50 Short Term Goal (STG) Improve function per KYARA score no greater than 10/50 STG Duration 01/08/21 Long-Term Goal (LTG) Elimination of pain that evening after Working on boat. LTG Duration 03/11/21 One Impairment Lacks appropriate self care HEP Social Media Campaign Manager Goal (LTG) Pt will be independent with a progressive self care HEP. TO DATE, ISSUED HEP: STRETCHES: *Ilipsoas stretch in standing & supine, *hip flexor stretch (adalberto GS in supine), *SKTC stretch, *Fig 4 stretch; *lateral hip, * Piriformis. SITTING: *trunk rot, *trunk flex, *flex w/rot. *Hamstring stretch (sitting, standing & standing FB) INSTRUCTIONS: TA TIGHTENING ( sup, sit), *Standing Trunk R SB stretch CORE STAB: *Heel Slides, * BKFO, *Leg slide introduced, * TA for PNF: Wood Chop & Golf Swing. LTG Duration 03/11/21 (02/04/21: Progressing) Progress Towards Goals Progress Comments Progressed HEP: Added Hamstring stretching in sit, standing and standing on both legs & forward bend. Overall improvement in function per Oswestry Disability Index (KYARA) of 9 (1 to 19% disbability), initially was score 38 (20 to 39% disability). Overall pain is slightly less at its worse from 9/10 to /10 . Assessment Summary Assessment Pt is reporting having wrap around trunk pain with rotation movements and sometimes so painful it almost drops him to his knees, indicating possible disc involvement. He has + PSLR of 60 deg's L, 65 deg's R, also indicating possible disc involvement. The pt has no LE pain and is painfree in the LB in supine or sidelye, but mainly with moving; therefore he has soft tissue involvement . He has poor engagement of his anterior trunk muscles; therefore demonstrating poor core stability. The pt hasn't made significant improvement in reducing his low back pain; therefore further medical assessment would appropriate to identify if his pain is more mechanical or soft tissue related. The pt has a good home program of trunk flexibilty and strengthening exercises and has been educated in proper posturing and body mechanics to help minimize onset of back pain. Should be noted the pt notes functional improvement per KYARA scores (see above). Physical Therapy Plan Frequency and Duration Frequency of Treatment 2x/Week Plan of Care Start Date 12/11/20 Plan of Care End Date 03/11/21 Other Referrals/Consults Referrals/Consults Recommended Recommend further imaging (MRI ) of lumbar spine. Next Visit Focus/Plan Next Note Type Treatment Note Next Visit Plan Pt to go back to his referring physician and will request further imaging of the low back. The pt will call back if further therapy is needed. If pt returns, review issued HEP: Hamstring stretches. Strengthen anterior trunk (TA) , nora rot (dual pully, PNF patterns), review progressive core stability/strengthening (TA) program last issued. Continual check if pt able to chest breath with TA hold. Review with pt proper posture standing posture. Address self care of walking dog, Lifting training (of dogs). End with ICE as needed.
--- NOTE | 2021-04-20 11:00 | PT.OPDS ---
Current Diagnoses Low back pain (02/04/21) Visit Care Team Role Provider Type Walter Wooten MD Attending Provider Physician Primary Care Provider Referring Provider Specialty: Internal Medicine Address: [address] [place] [address], [address], [place], [address] Email: [email or web address] Visit Number Visit Number 12 Discharge Summary PT-OP-B Current Condition Start: 12/10/20 17:16 Freq: Status: Active Protocol: Document 12/11/20 09:57 LRN (Rec: 12/11/20 11:17 LRN [id number]) Current Condition History of Current Condition Onset Date 09/28/20 Current Complaints Low back Pain rated 2-9/10. History of Current Condition Pain that sometimes radiates/ wraps around the front ( parallel to pain). Thinks what has aggravated it is that he has been working from home , on computer, and could be posture or ergonomics. 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 Pt is R handed. Prior Treatments and Tests Dr Dias (for Dr. Wooten) offered ms relaxor and is taking Tylenol 3's also for his back pain that has helped to decrease his pain. Uses heating pad at home to help quite a bit. Dr. Dias (for Dr. Wooten) also gave prescription for Voltaren cream that is helpful . Developmental History Developmental History Insidious onset. At the time was working around the yard. Dull pain starting in the back , once wrapping around the chest really hurt and really bothered him. 2 nights ago was working on his generator and that evening the pain was really bad. Treatment Goals Patient/Caregiver Goals Elimination of pain. 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 Painful with putting on socks/ shoes daily. Prior Functional Status Baseline Function- ADL's Independent Baseline Function- Mobility Independent Current Functional Impairments (Reported) Functional Limitations- ADL's Pain Picking up dog (45, 55, 30) to put on lap. Painful with putting on socks/ shoes daily. Functional Limitations- Mobility/Gait Back can bother him with daily walking of dogs, that aggrevate it when dog pulls. 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 PT-OP-C Subjective Start: 12/10/20 17:16 Freq: Status: Active Protocol: Document 04/20/21 10:51 LRN (Rec: 04/20/21 11:00 LRN [id number]) OP-PT Subjective Patient Comments Patient Comments Per phone, states he went to [place], worked really hard ( worked through the pain), and when he came back he felt much better. He feels it after working in the yard. PT-OP-J Posture/Palpation/Skin Start: 12/10/20 17:16 Freq: Status: Active Protocol: Document 12/11/20 09:57 LRN (Rec: 12/11/20 11:17 LRN [id number]) Posture Evaluation Position Standing Head/C-Spine Posture Side Bent Left,Forward Head L-Spine Posture Increased Lordosis,Flexible Scoliosis on (L) Palpation Assessment Location Lumbar paraspinals Palpation Findings Muscle Guarding,Tenderness Palpation Details R > L QL Sacrum Palpation Findings Tenderness Palpation Details Increased temp PT-OP-K Range of Motion Start: 12/10/20 17:16 Freq: Status: Active Protocol: Document 01/26/21 12:51 LRN (Rec: 01/26/21 13:38 LRN [id number]) Hip Goniometric Range of Motion Hip Left Passive Straight Leg Raise 55 Internal Rotation 25 External Rotation 60 Right Passive Straight Leg Raise 60 Internal Rotation 25 External Rotation 55 PT-OP-L Special Tests Start: 12/10/20 17:16 Freq: Status: Active Protocol: Document 02/04/21 12:49 LRN (Rec: 02/04/21 14:02 LRN [id number]) Special Tests Lumbar Spine Special Tests Straight Leg Raise Test Results 60 deg's L, 65 deg's R Comments + test. PT-OP-M Strength Start: 12/10/20 17:16 Freq: Status: Active Protocol: Document 12/11/20 09:57 LRN (Rec: 12/11/20 11:17 LRN [id number]) Trunk Strength Trunk Manual Muscle Testing Core Stabilization Not able to maintain core stability with hip AB/AD testing. Core mostly stable with hip flex testing. Hip Strength Hip Manual Muscle Testing Right Flexion (L2) 5 Normal Abduction 3+ Fair+ Adduction 1 Trace Left Flexion (L2) 5 Normal Abduction 3+ Fair+ Adduction 3 Fair PT-OP-T Assessment and Plan Start: 12/10/20 17:16 Freq: Status: Active Protocol: Document 04/20/21 10:51 LRN (Rec: 04/20/21 11:00 LRN [id number]) Physical Therapy Assessment Goals Four Impairment Decreased trunk stability/ strength Short Term Goal (STG) Pt able to maintain core stability with movement or MMT of LE's. 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 (01/07/21: Pt able to garbage pick up worker a dog without pain if using proper body mechanics). (01/28/21: Pt was able to garbage pick up worker one dog from standing position without pain). LTG Duration 01/28/21 (02/04/21: NOT MET) Three Impairment Decreased trunk mobility with pain Short Term Goal (STG) Pt is independent on a trunk flexibility home program. (01/26/21: Issued trunk rot and R SB stretch) STG Duration 01/08/21 (04/20/21: Partially met goal) Longterm Goal (LTG) Pt will be able to put on socks/shoes without pain. (01/22/21: Putting on R socks/ shoes is difficult due to tightness, no pain). LTG Duration 01/28/21 (01/22/21: MET GOAL) Two Impairment KYARA at worst is 19/50 Short Term Goal (STG) Improve function per KYARA score no greater than 10/50 STG Duration 01/08/21 (04/20/21: Pt unavailable for final assessment) Silverware Washer Goal (LTG) Elimination of pain that evening after Working on boat. LTG Duration 03/11/21 (04/20/21: Pt goal met independently) One Impairment Lacks appropriate self care HEP Silverware Washer Goal (LTG) Pt will be independent with a progressive self care HEP. TO DATE, ISSUED HEP: STRETCHES: *Ilipsoas stretch in standing & supine, *hip flexor stretch (adalberto GS in supine), *SKTC stretch, *Fig 4 stretch; *lateral hip, * Piriformis. SITTING: *trunk rot, *trunk flex, *flex w/rot. *Hamstring stretch (sitting, standing & standing FB) INSTRUCTIONS: TA TIGHTENING ( sup, sit), *Standing Trunk R SB stretch CORE STAB: *Heel Slides, * BKFO, *Leg slide introduced, * TA for PNF: Wood Chop & Golf Swing. LTG Duration 03/11/21 (02/04/21: Partially met goal) Assessment Summary Assessment Per phone conversation the pt' s pain has mostly resolved after a month of working. No further therapy is needed. Physical Therapy Plan Discharge Physical Therapy Discharge Reasons No Longer Attending PT Discharge Comments Pt pain has somewhat resolved after going to [email or web address] to work for a month. No further therapy needed. Thank you for your referral.
== END 2021-07-22 13:08 | disposition home or self-care (01) ==
LOC: PHYS 12:45
PROVIDERS: PCP Internal Medicine; Referring Provider Internal Medicine; Visit Provider Internal Medicine
DX: M54.5 Low back pain (principal)
CPT/HCPCS: 97010; 97012; 97014; 97035; 97110; 97140; 97162; 97535; G0283

== ENCOUNTER → 2021-03-09 06:52 | Outpatient (CLI) | payer BC, SELFPAY ==
[2021-03-09 08:30] LABS: Hemoglobin A1C% w Est Avg Glu 7.3 % (4.0-6.0)
[2021-03-09 08:57] LABS: BUN Creatinine Ratio 15.5 (6-22); Blood Urea Nitrogen 13 mg/dL (9-20); Calcium 9.7 mg/dL (8.4-10.2); Carbon Dioxide 33 mmol/L (22-32); Chloride 99 mmol/L (98-107); Estimated Glomerular Filt Rate > 60.0 mL/min (>60); Glucose 152 mg/dL (70-100); HEMOLYSIS < 15 (0-50); Potassium 3.6 mmol/L (3.4-5.1); Sodium 140 mmol/L (137-145)
[2021-03-09 09:07] LABS: Creatinine Urine Random 119.5 mg/dL
[2021-03-09 09:24] LABS: Microalbumin Urine Random < 0.6 mg/dL (0-1.6)
== END ==
PROVIDERS: PCP Internal Medicine; Referring Provider Internal Medicine; Visit Provider Internal Medicine
DX: E11.65 Type 2 diabetes mellitus with hyperglycemia (principal)
CPT/HCPCS: 36415; 80048; 82043; 82570; 83036

== ENCOUNTER → 2021-03-10 13:57 | Outpatient (CLI) | payer BC, SELFPAY ==
--- NOTE | 2021-03-10 14:39 | DIET.PN ---
Diabetes Follow Up Assess: Met for Mr. Greene?s 3 mo follow up visit. He reports significant improvements in dietary habits including smaller portions, more veggies, using more whole grains, and eating out less. He admits he has not been exercising as planned. He continues to monitor his fasting glucose but has agreed to monitoring evening as he is unhappy with most recent A1c results. Labs: A1c: 7.3 FB-160 Meds: na Dietary changes: smaller portions, more veggies, using more brown rice, eating out less Dietary challenges: custards, lack of activity Ht: Wt: 283 lb (255 lb) BMI: Nutrition DX: Altered nutrition related laboratory values related to impaired glucose metabolism, lack of previous exposure to nutrition information as evidenced by pt report, diagnosis of diabetes, previous diet high in refined carbohydrates. Intervention: 1. Completed follow up assessment. Reviewed barriers to care. 2. Reviewed new labs and importance of continued BG monitoring. 3. Reviewed SMART goals and made modifications where appropriate including wt management, activity, and A1c goals. 4. Discussed possible need for medication management and possible options. Pt hopeful to lower A1c with lifestyle habits. 5. Discussed plan for ongoing support. Provided information for continued support and success. Monitor/Evaluate: Pt will follow up in 3 mo to discuss new labs and barriers to care.
== END ==
PROVIDERS: PCP Internal Medicine; Referring Provider Internal Medicine; Visit Provider Internal Medicine
DX: E11.9 Type 2 diabetes mellitus without complications (principal)
CPT/HCPCS: G0109

== ENCOUNTER → 2021-08-03 15:12 | Outpatient (CLI) | payer BC, SELFPAY ==
[2021-08-03 16:00] LABS: BUN Creatinine Ratio 14.9 (6-22); Blood Urea Nitrogen 10 mg/dL (9-20); Calcium 9.6 mg/dL (8.4-10.2); Carbon Dioxide 31 mmol/L (22-32); Chloride 99 mmol/L (98-107); Estimated Glomerular Filt Rate > 60.0 mL/min (>60); Glucose 278 mg/dL (70-100); HEMOLYSIS < 15 (0-50); Potassium 3.4 mmol/L (3.4-5.1); Sodium 137 mmol/L (137-145)
== END ==
PROVIDERS: PCP Internal Medicine; Referring Provider Internal Medicine; Visit Provider Internal Medicine
DX: E11.65 Type 2 diabetes mellitus with hyperglycemia (principal); I10 Essential (primary) hypertension
CPT/HCPCS: 36415; 80048; 83036

== ENCOUNTER → 2021-08-31 15:31 | Outpatient (CLI) | payer BC, SELFPAY ==
--- NOTE | 2021-08-31 17:10 | DIAB.MNT ---
Initial Diabetes Medical Nutrition Therapy Assessment Name: Deena Greene Date: 08/31/21 Time: 335-435p Dx: Type II Diabetes Provider: Je [employer] Learning Style: Hands-on/doing Robin presents today without his (she is in the ED currently). States he has started Metformin 500 mg BID with SE of GI upset (diarrhea primarily). He has completed DM ed earlier this year, but is interested in attending classes again this time with his . States he is unclear on what changes they can make, since they have already cut back on carbohydrates. Had elevated BP at PCP visit. Has not checked BP at home, but states they are normally high at PCP visit and not at home. Currently, he endorses an average of weighed 110 g of sugar per day with 3-4 c coffee and 5-6 c black tea. Reports this is an improvement from previous caffeine and sugar intake. With current sugar/milk intake he exceeds recs on sugar per day and is adding quite a bit of carbs, kcals, caffeine and saturated fat. He would like to lose weight. Endorses migraines for two days after having artificial sugars. Has not tried natural substitute sugars. he is hesitant of decreasing beverage or sugar intake. Also weary of reducing to lower fat milk. sugar per day weight: 110g sugar = 1/2c sugar = 120g carbs, 480 kcals whole milk in coffee/tea per day: 3cups = 36g carbs, 13.8g sat fat, 438 kcals Diet Recall: 6a: coffee with milk and sugar 10-11a total cereal, granola, milk and cream, sugar: 40g CHO 2p: sandwich with ww bread: 30g CHO 6p: veggies, 1/2-1/3c rice, 1.5 x serving protein: 15-20g CHO Beverages: 1/2c water, 3-4c coffee with milk and sugar, 5-6c tea with milk and sugar, 4oz OJ x 3-4 per week (15g CHO) Anthropometrics: Ht: 6'2 Wt: 280-290# reported Weight history: Last visit wt: 290.4# Physical Activity: Walk with and dog 3-4 x per week for 30 min. 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 All after meal readings elevated with exception of one 169 mg/dL reading. If he could find a sugar sub that does not cause him to have migraines, it is likely that these numbers could improve. Otherwise, Metformin would be rec to titrate up. He seems motivated to find some lifestyle changes since he has GI upset with Metformin. We did discuss the possibility of XR. Date Pre Post Pre Post Pre Post HS 08/16 229 08/23 169 08/24 153 08/27 234 212 08/28 138 192 08/29 157 169 08/30 157 Diabetes Medications: 500 mg Metformin BID Pertinent Labs: 08/03/21 HgA1c: 9% H 03/2021 7.3% H 10/2020 6.8% H Past Medical History: (This Medical Record has been edited. 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) Hyperlipidemia Hypertension Insomnia Obstructive sleep apnea Nutrition Rx: 1800-2000kcals per day ; Carbohydrates: Daily: 130-225g CHO Nutrition Diagnosis: - Excessive CHO intake r/t beverage choices and lack of nutrition knowledge aeb diet recall and BG readings - Excessive saturated fat intake r/t beverage choices and lack of nutrition knowledge aeb diet recall - Inadequate phys activity r/t sedentary job and limited exercise program aeb pt report - Excessive caffeine intake r/t beverage choices and lack of nutrition knowledge aeb diet recall Intervention: This participant was very receptive. Provided appropriate educational handouts. Discussed the following topics: Completed intake assessment. Discussed barriers to care. HgA1c BG and impact of sugar intake Carb content of foods he is currently eating ways to reduce carb and sat fat intake Heart health nutrition Discussed balancing food intake and potential for increasing meds SE of Metformin and how to reduce (take with food) Created SMART goals for patient self-care and success. Goals: Try natural sugar substitute on a Monday (no work)- new Reduce coffee and tea (below 4c coffee and 6c tea)- new Increase water to more than 1-2c per day- new Follow-up: THELMA TORRES follow-up in 4 weeks. Offered sooner follow-up, but with 's medical needs would like to come back in one month. Ayaka Park RDN, MELISSA Certified Diabetes Care and Electric Repair Supervisor P: [phone] Thank you for this referral
== END ==
PROVIDERS: PCP Internal Medicine; Referring Provider Internal Medicine; Visit Provider Internal Medicine
DX: E11.9 Type 2 diabetes mellitus without complications (principal); Z79.84 Long term (current) use of oral hypoglycemic drugs; Z71.3 Dietary counseling and surveillance
CPT/HCPCS: 97802

== ENCOUNTER → 2021-10-20 15:33 | Outpatient (CLI) | payer BC, SELFPAY ==
--- NOTE | 2021-10-21 16:54 | DIAB.MNTFU ---
Follow-up Diabetes Medical Nutrition Therapy Assessment Name: Deena Greene Date: 10/20/21 Time: 340-440p Dx: Type II Diabetes Robin presents for follow-up with his , Inna. Purchased new sugar subs (monkfruit and stevia), but worried about trying them due to trigging headaches , which can last a couple days. Seems his BG would be much better with a sugar sub, but encouraged him to make this personal decision carefully given h/o migraines. Headaches specifically have occurred with aspartame. States he is drinking less coffee and tea, which decreases his sugar intake as well. Continues to drink sugar sweetened beverages daily, recently drinking chocolate milk at night. Meals are lower in carb per report, with most meals 0-30g CHO except for breakfast. Breakfast tends to be higher in CHO and low in protein, ie cereal. Water intake remains low. Most of his CHO intake is from beverages. Taking Metformin in the morning with breakfast around 5-7a. Then again with dinner 2-3 hours after dinner at 8-830p. Still having some GI upset, but it has improved. May benefit from taking with food to reduce GI upset. States this may be challenging for him due to his routine. Anthropometrics: Ht: 6'2 Wt: 279# yesterday (reported) 283# prior to (reported) Physical Activity: walks dogs 3-4 x per week for 30 min. Long commute for work is a barrier during the week Self-Monitoring Blood Glucose: Reports morning readings in the 160s and pc dinner 195-220. All readings above ADA goal. Would likely benefit form increase in Metformin, however he is still having some GI upset with current dose. If this improves with taking at dinner, would benefit from trying higher dose. If not, may benefit from additional DM med. No meter for review today. Diabetes Medications: Metformin 500 mg BID Pertinent Labs: 08/03/21 HgA1c: 9% H 03/2021 7.3% H 10/2020 6.8% H Past Medical History: (This Medical Record has been edited. 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) Hyperlipidemia Hypertension Insomnia Obstructive sleep apnea Nutrition Rx: Carbohydrates: Meal: 45-60g Snack: 15-30g Nutrition Diagnosis: Excessive CHO intake r/t beverage choices and lack of nutrition knowledge aeb diet recall and BG readings- in progress Excessive saturated fat intake r/t beverage choices and lack of nutrition knowledge aeb diet recall- in progress Inadequate phys activity r/t sedentary job and limited exercise program aeb pt report- in progress Excessive caffeine intake r/t beverage choices and lack of nutrition knowledge aeb diet recall- in progress Intervention: This participant was very receptive. Provided appropriate educational handouts. Discussed the following topics: Blood sugar trends. Impact of sugar intake on results. Plate Method, impact of macronutrients on blood sugar, meal timing, carbohydrate counting, pairing macronutrients and spreading out carbohydrates for better blood glucose management Meal planning and carb counting review How to reduce impact of med on GI Potential for increase in medication for DM mgmgnt Physical activity plan and progress Created SMART goals for patient self-care and success. Goals: Try natural sugar substitute on a Monday (no work)- not met Reduce coffee and tea (below 4c coffee and 6c tea)-met and in progress Increase water to more than 1-2c per day- in progress Try Metformin with dinner- new Try protein cereal- new Add protein to breakfast- new Follow-up: THELMA TORRES follow-up in 2-4 weeks. Robin has attended DM ed classes in the past. States his insurance will cover him attending again, and he would like to attend with his . Asked that he review his schedule and update me on whether he will be attending again. Might be beneficial since classes have been changed since he last attended. Will evaluate the appropriateness of classes again with him further during our next conversation. Ayaka Park RDN, CDCES Certified Diabetes Care and Supervisor [place] P: [phone] Thank you for this referral
== END ==
PROVIDERS: PCP Internal Medicine; Referring Provider Internal Medicine; Visit Provider Internal Medicine
DX: E11.9 Type 2 diabetes mellitus without complications (principal)
CPT/HCPCS: 97803

== ENCOUNTER → 2021-11-09 09:35 | Outpatient (CLI) | payer BC, SELFPAY ==
--- NOTE | 2021-11-10 15:17 | DIAB.FU ---
Diabetes Education Class Series: Diabetes and Nutrition Name: Deena Greene Date: 11/09/21 Time: 945a-12p Dx: Type II Diabetes Robin presents for class with his , Inna. States he still has not tried substitute sugars (monk fruit or stevia). Continues high carb intake with tea and coffee sweetened daily. commented that she feels overwhelmed with making meals with all nutrition suggested. We discussed as a group how to implement small changes over time. Class topics covered: ? Debunk nutrition myths and discuss how to sustain healthy eating long-term through moderation and variety ? Define macronutrients and determine their impact on blood sugars ? Discuss macronutrient pairing, Plate Method, and carb counting ? Review general recommendations for carbohydrates ? Practice label reading ? Discuss the role of fiber in diabetes and provide examples of sources ? Review heart health nutrition: fats, fiber, and sodium ? Determine recommendations for grocery shopping and eating out ? Discuss alcohol recommendations ? Review the role of substitute sugars in diabetes management ? Set SMART goals Goal Set: Would like to try stevia or monk fruit in the next month Follow-up: Diabetes Physiology and Medication Class in one week Ayaka Park RDN, [facility] Registered Dietitian, Certified Diabetes Care and Looper Operator [phone] [email or web address]
== END ==
PROVIDERS: PCP Internal Medicine; Referring Provider Internal Medicine; Visit Provider Internal Medicine
DX: E11.9 Type 2 diabetes mellitus without complications (principal)
CPT/HCPCS: G0109

== ENCOUNTER → 2021-11-16 09:31 | Outpatient (CLI) | payer BC, SELFPAY ==
--- NOTE | 2021-11-16 15:58 | DIAB.FU ---
Diabetes Education Class Series: Diabetes Physiology and Medications Name: Deena Greene Date: 11/16/21 Time: [id number] Robin presents with his for class today. States he has tried the natural sugar substitutes and did not get a migraine. Reports not enjoying some due to after taste. Stevia seems ok, but has to use a smaller portion due to sweetness. States he was unaware that he should wash hands prior to checking BG. Class topics covered: ? Diabetes pathophysiology ? Discuss different types of diabetes ? Review criteria for diagnosing diabetes ? Review HgA1c measurement and associated blood sugars ? Review blood sugar monitoring safety, technique, and goals ? Discuss ways to reduce complications associated with diabetes, includes microvascular and macrovascular complications ? Review diabetes medications types, action, and side effects ? Health care visits recommended for people with T2DM ? Immunization recommended for people with T2DM ? SMART goals review Goal Set: Wash hads prior to checking BG. Follow-up: Diabetes Lifestyle and Ongoing Support Class next week Ayaka Park RDN, [facility] Registered Dietitian, Certified Diabetes Care and Stock Feeder [phone] [email or web address]
== END ==
PROVIDERS: PCP Internal Medicine; Referring Provider Internal Medicine; Visit Provider Internal Medicine
DX: E11.9 Type 2 diabetes mellitus without complications (principal)
CPT/HCPCS: G0109

== ENCOUNTER → 2021-11-23 09:31 | Outpatient (CLI) | payer BC, SELFPAY ==
--- NOTE | 2021-11-23 16:03 | DIAB.FU ---
Diabetes Education Class Series: Diabetes Lifestyle Change and Ongoing Support Name: Deena Greene Date: 11/23/21 Time: [id number] Robin presents today for last class in the DSME series with his for support. States he has still not been able to use the natural sugar free sweeteners, but did try them and knows that they do not give him migraines, which is progress. States he often craves something sweet in the night when he wakes, ie tea with sugar or OJ. Reports difficulty with getting accurate FBG due to this. We discussed trying to limit evening sweet beverages to a few times per week. Seemed open to this suggestion. Also endorses weather as a main barrier to physical activity this time of year. Class topics covered: ? Discuss the difference between physical activity and exercise ? Determine physical activity benefits and impact on diabetes ? Review physical activity recommendations and safety ? Discuss emergency preparedness ? Discuss diabetes and emotions (diabetes burnout/distress) ? Review and practice stress management techniques ? Review support groups and community resources ? Discuss the role of family support in diabetes care ? What is going well? Challenges of diabetes? ? Set SMART goals Follow-up: 1:1 visit follow-up in 3-6 weeks Ayaka Park RDN, [facility] Registered Dietitian, Certified Diabetes Care and [employer] [place] [phone] [email or web address]
== END ==
PROVIDERS: PCP Internal Medicine; Referring Provider Internal Medicine; Visit Provider Internal Medicine
DX: E11.9 Type 2 diabetes mellitus without complications (principal)
CPT/HCPCS: G0109

== ENCOUNTER → 2021-12-10 07:37 | Outpatient (CLI) | payer BC, SELFPAY ==
[2021-12-10 08:34] LABS: Hemoglobin A1C% w Est Avg Glu 6.9 % (4.0-6.0)
[2021-12-10 08:46] LABS: BUN Creatinine Ratio 19.1 (6-22); Blood Urea Nitrogen 13 mg/dL (9-20); Calcium 9.6 mg/dL (8.4-10.2); Carbon Dioxide 33 mmol/L (22-32); Chloride 100 mmol/L (98-107); Estimated Glomerular Filt Rate > 60.0 mL/min (>60); Glucose 242 mg/dL (70-100); HEMOLYSIS < 15 (0-50); Potassium 3.1 mmol/L (3.4-5.1); Sodium 137 mmol/L (137-145)
== END ==
PROVIDERS: PCP Internal Medicine; Referring Provider Internal Medicine; Visit Provider Internal Medicine
DX: E11.65 Type 2 diabetes mellitus with hyperglycemia (principal); I10 Essential (primary) hypertension
CPT/HCPCS: 36415; 80048; 83036

== ENCOUNTER → 2022-03-07 07:40 | Outpatient (CLI) | payer BC, SELFPAY ==
[2022-03-07 08:56] LABS: Alanine Aminotransferase 44 IU/L (<50); Albumin 4.3 g/dL (3.5-5.0); Albumin Globulin Ratio 1.7 (1.0-2.8); Alkaline Phosphatase 61 U/L (38-126); Aspartate Aminotransferase 34 IU/L (17-59); BUN Creatinine Ratio 17.9 (6-22); Bilirubin Total 0.6 mg/dL (0.2-1.3); Blood Urea Nitrogen 15 mg/dL (9-20); Calcium 9.1 mg/dL (8.4-10.2); Carbon Dioxide 33 mmol/L (22-32); Chloride 101 mmol/L (98-107); Cholesterol 143 mg/dL (140-199); Estimated Glomerular Filt Rate > 60 mL/min (>60); Globulin 2.6 g/dL (1.7-4.1); Glucose 135 mg/dL (70-100); HDL Cholesterol 30 mg/dL (40-60); HEMOLYSIS < 15 (0-50); LDL Cholesterol Calculated 66 mg/dL (<100); Potassium 3.6 mmol/L (3.4-5.1); Sodium 141 mmol/L (137-145); Total Protein 6.9 g/dL (6.3-8.2); Triglycerides 233 mg/dL (35-150)
[2022-03-07 08:58] LABS: Hemoglobin A1C% w Est Avg Glu 6.6 % (4.0-6.0)
[2022-03-07 09:21] LABS: Prostate Specific Antigen Scrn 2.78 ng/mL (0.1-4.0)
== END ==
PROVIDERS: PCP Internal Medicine; Referring Provider Internal Medicine; Visit Provider Internal Medicine
DX: E11.65 Type 2 diabetes mellitus with hyperglycemia (principal); E78.2 Mixed hyperlipidemia; I10 Essential (primary) hypertension; Z12.5 Encounter for screening for malignant neoplasm of prostate
CPT/HCPCS: 36415; 80053; 80061; 83036; G0103

== ENCOUNTER → 2022-06-06 14:54 | Outpatient (CLI) | payer BC, SELFPAY ==
[2022-06-06 15:49] LABS: Hemoglobin A1C% w Est Avg Glu 7.6 % (4.0-6.0)
[2022-06-06 15:52] LABS: BUN Creatinine Ratio 14.3 (6-22); Blood Urea Nitrogen 11 mg/dL (9-20); Calcium 8.9 mg/dL (8.4-10.2); Carbon Dioxide 29 mmol/L (22-32); Chloride 101 mmol/L (98-107); Estimated Glomerular Filt Rate > 60 mL/min (>60); Glucose 220 mg/dL (70-100); HEMOLYSIS < 15 (0-50); Potassium 3.1 mmol/L (3.4-5.1); Sodium 138 mmol/L (137-145)
== END ==
PROVIDERS: PCP Internal Medicine; Referring Provider Internal Medicine; Visit Provider Internal Medicine
DX: E11.65 Type 2 diabetes mellitus with hyperglycemia (principal)
CPT/HCPCS: 36415; 80048; 83036

== ENCOUNTER → 2022-06-17 13:13 | Outpatient (CLI) | payer BC, SELFPAY ==
[2022-06-17 15:39] LABS: BUN Creatinine Ratio 12.5 (6-22); Blood Urea Nitrogen 10 mg/dL (9-20); Calcium 9.1 mg/dL (8.4-10.2); Carbon Dioxide 27 mmol/L (22-32); Chloride 103 mmol/L (98-107); Estimated Glomerular Filt Rate > 60 mL/min (>60); Glucose 155 mg/dL (70-100); HEMOLYSIS < 15 (0-50); Magnesium 1.8 mg/dL (1.6-2.3); Potassium 3.4 mmol/L (3.4-5.1); Sodium 138 mmol/L (137-145)
== END ==
PROVIDERS: PCP Internal Medicine; Referring Provider Internal Medicine; Visit Provider Internal Medicine
DX: I10 Essential (primary) hypertension (principal)
CPT/HCPCS: 36415; 80048; 83735

== ENCOUNTER 2022-06-20 10:32 | Emergency (ER) | payer BC, SELFPAY ==
[2022-06-20 10:35] VITALS: BP 175/86; PULSE 64; RESP 14; TEMP 36.7; O2SAT 95; BMI 34.7
[2022-06-20 10:43] VITALS: PULSE 61; RESP 18; O2SAT 94
--- NOTE | 2022-06-20 10:56 | ED_ITS ---
HPI - Headache General Chief Complaint: Hypertension Stated Complaint: Headaches, blurry vision- sent by Je for CT Time Seen by Provider: 06/20/22 10:45 Mode of arrival: Ambulatory History of Present Illness HPI Narrative: Patient is a 57-year-old male history of diabetes hypertension hyperlipidemia and migraines presenting today with worsening headaches over the last 5 days. He says he feels severe pounding son during headaches for last 5 days. He has b een alternating Tylenol threes and ibuprofen which seemed to help but do not make it go away completely. He denies any nausea vomiting. He occasionally has blurry vision but no loss of vision. No numbness tingling or weakness. He denies any chest pain or palpitations. No cough or shortness breath no neck pain no rash. Not on any antiplatelet or anticoagulation medication. He is a to go to work tomorrow and would like to be able to do so. Related Data Previous Rx's Medication Instructions Recorded sildenafil 100 mg tablet (Viagra) 0 mg PO QDAYP PRN #5 tabs 01/15/19 Blood Sugar Test Stripts #100 ea 01/21/21 Glucometer #1 ea 01/21/21 Lancets #100 ea 01/21/21 carvedilol 25 mg tablet 25 mg PO BID #180 tabs 09/15/21 cyclobenzaprine 5 mg tablet 5 mg PO TID PRN muscle spasm #90 09/20/21 tabs acetaminophen 300 mg-codeine 30 mg 1 - 2 tab PO Q4-6H PRN pain #90 04/28/22 tablet tabs zolpidem 10 mg tablet (Ambien) 10 mg PO HS PRN insomnia #60 tabs 05/18/22 glipizide 5 mg tablet 2.5 mg PO BID #46 tabs 06/10/22 quetiapine 50 mg tablet 50 - 100 mg PO DAILY #60 tabs 06/16/22 simvastatin 20 mg tablet (Zocor) 20 mg PO DAILY #90 tabs 06/16/22 losartan 50 mg tablet 50 mg PO DAILY #90 tabs 06/17/22 acetaminophen 300 mg-codeine 30 mg 1 tab PO Q6H PRN pain #10 tabs 06/20/22 tablet rizatriptan 10 mg tablet (Maxalt) 10 mg PO Q2-4H PRN migraine 06/20/22 headache #7 tabs Allergies Allergy/AdvReac Type Severity Reaction Status Date / Time metformin AdvReac Intermediate Diarrhea Verified 06/10/22 10:11 Review of Systems Review of Systems Narrative: GENERAL: Denies chills, fatigue, malaise, fever, sweats, travel HEENT: Denies sinus pain, ear pain, sore throat, difficulty swallowing, neck pain RESPIRATORY: Denies dyspnea, cough, wheezing, hemoptysis, sputum. CARDIOVASCULAR: Denies chest pain, palpitations, orthopnea, edema GASTROINTESTINAL: Denies nausea, vomiting, abdominal pain, diarrhea, constipation, melena. : Denies dysuria, frequency, incontinence, hematuria, urinary retention, flank pain. MUSCULOSKELETAL: Denies weakness, joint pain, or bony pain SKIN: No rash, no erythema, no pruritus NEUROLOGIC: see HPI PSYCHIATRIC: No concerning psychosocial issues. 12 point review of systems is negative except for those stated above and HPI Patient History Medical History Colon polyps (04/2017) Depression Diabetes type 2, controlled Diabetes type 2, uncontrolled Essential hypertension Human leukocyte antigen B27 positive (05/13/16) Hyperlipidemia Hypertension Insomnia Obstructive sleep apnea Social History Smoking Status: Never smoker eating out: 1-3 times/week Smoking Status: Never smoker alcohol intake frequency: a few times a month Substance Use Type: does not use Exam Initial Vital Signs Initial Vital Signs: Vital Signs Temperature 98.1 F 06/20/22 10:35 Pulse Rate 64 06/20/22 10:35 Respiratory Rate 14 06/20/22 10:35 Blood Pressure 175/86 H 06/20/22 10:35 Pulse Oximetry 95 06/20/22 10:35 Oxygen Delivery Method 06/20/22 10:35 GENERAL: Alert pleasant 57-year-old male and in no acute distress. HEENT: Head atraumatic,EOMI, pupils reactive, face symmetric, moist mucous membranes CARDIOVASCULAR: Regular rate and rhythm without murmurs, rubs or gallops. RESPIRATORY: Breath sounds equal bilaterally, no wheezes rales or rhonchi. ABDOMEN: Soft, nontender. Normoactive bowel sounds all 4 quadrants. No guarding or rebound. EXTREMITIES: Normal range of motion, no clubbing or edema. Neurovascularly intact NEUROLOGICAL: Alert and oriented x4.Normal gait and speech. Cranial nerves II through XII grossly intact. Good bolyrn-un-ufdz, good whra-ae-ujic, strength equal bilaterally, no dysarthria or aphasia, sensation in tact to soft touch bilaterally, no visual changes, no facial droop SKIN: Warm, dry, no laceration, no petechiae, no rashes or lesions. Scores NIH Stroke Scale Level of Conciousness: Alert, keenly responsive Ask month/age: Answers both questions correctly. Open/close eyes, close hand: Performs both tasks correctly Best gaze horizontal: Normal Visual colon: No visual loss Facial palsy: Normal symetrical movement Left arm drift: No drift for full 10 sec Right arm drift: No drift for full 10 sec Left leg drift: No drift for full 5 sec Right leg drift: No drift for full 5 sec Limb ataxia: Absent Sensory on face/arms/legs: Normal, no sensory loss Best language: No aphasia, normal Dysarthria: Normal Extinction or inattention: No abnormality Total NIH Stroke scale score: 0 Course Orders Ordered: ED Orders 06/20/22 10:41 CBC Auto Diff [Complete Blood Count AUTO DIFF] Stat CMP [Comprehensive Metabolic Panel] Stat 06/20/22 10:46 EKG-12 Lead Routine 06/20/22 10:56 CT head/brain wo con Stat 06/20/22 11:00 COVID19 -Nasal RAPID/Pre-Proc Stat Vital Signs Vital signs: Vital Signs - 8 hr 06/20/22 10:35 06/20/22 10:43 06/20/22 11:00 Temperature 98.1 F Pulse Rate 64 61 Respiratory Rate 14 18 Blood Pressure 175/86 H 152/74 H Pulse Oximetry 95 94 Oxygen Delivery Method Room Air 06/20/22 11:00 06/20/22 11:20 06/20/22 11:20 Temperature Pulse Rate 60 60 Respiratory Rate 13 15 Blood Pressure 162/77 H Pulse Oximetry 95 96 Oxygen Delivery Method 06/20/22 11:30 06/20/22 11:30 06/20/22 12:31 Temperature 97.6 F Pulse Rate 58 L 60 Respiratory Rate 18 Blood Pressure 144/71 H 174/81 H Pulse Oximetry 95 97 Oxygen Delivery Method Room Air MDM - Headache Lab Data Result diagrams: 06/20/22 10:41 06/20/22 10:41 Labs: Lab Results 06/20/22 06/20/22 06/20/22 Range/Units 10:41 10:41 11:00 WBC 7.3 (4.5-11.0) X10^3/uL RBC 4.98 (4.5-5.9) X10^6/uL Hgb 14.4 (13.5-17.5) g/dL Hct 40.2 L (41-53) % MCV 80.7 (80-100) fL MCH 28.9 (26-34) PG MCHC 35.8 (30-36) % RDW 13.7 (11.6-14.8) % Plt Count 183 (150-400) X10^3/uL Neut % (Auto) 56.1 (50-75) % Lymph % (Auto) 31.8 (25-40) % [place] % (Auto) 8.4 (3-14) % Eos % (Auto) 3.4 (2-4) % Baso % (Auto) 0.3 (0-2) % Neut # (Auto) 4100 (9346-6219) /uL Lymph # (Auto) 2300 (9371-3010) /uL [place] # (Auto) 600 (0-900) /uL Eos # (Auto) 200 (0-450) /uL Baso # (Auto) 0 (0-100) /uL Sodium 138 (137-145) mmol/L Potassium 3.6 (3.4-5.1) mmol/L Chloride 104 (98-107) mmol/L Carbon Dioxide 28 (22-32) mmol/L BUN 11 (9-20) mg/dL Creatinine 0.72 (0.66-1.25) mg/dL Estimated GFR > 60 (>60) mL/min BUN/Creatinine Ratio 15.3 (6-22) Glucose 125 H (70-100) mg/dL Calcium 8.8 (8.4-10.2) mg/dL Total Bilirubin 0.5 (0.2-1.3) mg/dL AST 36 (17-59) IU/L ALT 44 (<50) IU/L Alkaline Phosphatase 58 (38-126) U/L Total Protein 7.3 (6.3-8.2) g/dL Albumin 4.2 (3.5-5.0) g/dL Globulin 3.1 (1.7-4.1) g/dL Albumin/Globulin Ratio 1.4 (1.0-2.8) SARS-CoV-2 (PCR) Negative (Negative) MDM Narrative Medical decision making narrative: Patient overall appears well. He has no focal deficits. He has had worsening headaches over the last few days. Taking ibuprofen and Tylenol threes. Some of that may be rebound headache. Head CT is fortunately negative to help. Recommend Maxalt instead. He says that he has tried sumatriptan in the past and nothing seems to work. His blood pressure he says is normally a little bit lower than it is now. Systolic seems to be in the 170s at this time I recommend he follow his blood pressure at and discuss options with his PCP. Discharge Plan Departure Patient Disposition: Home Clinical Impression: Migraine Instructions: Migraine -- Adult Activity Restrictions/Additional Instructions: *You have been diagnosed with migraine headache *What to do: At this time her blood pressure is noted to be slightly high please monitor your blood pressure at home and discuss this with her PCP. Your CT scan and blood work today are reassuring. *Continue to take medications as directed Maxalt 10mg one time for acute headache, may repeat after 2 hours if no response do not exceed more than 3 doses in 24hours Tylenol number threes every 6 hours only if he had for severe pain *Follow up with your primary care provider in 2-3 days or call [phone] *Return to ER if you should have worsening headache persistent vomiting numbness tingling weakness visual changes [or] any new, worsening or concerning symptoms Prescriptions: New rizatriptan [Maxalt] 10 mg tablet 10 mg PO Q2-4H PRN (Reason: migraine headache) Qty: 7 0RF Rx Instructions: do not exceed 3 doses per 24 hrs acetaminophen-codeine 300-30 mg tablet 1 tab PO Q6H PRN (Reason: pain) Qty: 10 0RF No Action sildenafil [Viagra] 100 mg tablet 0 mg PO QDAYP PRNQty: 5 11RF (DME) Glucometer See Rx Instructions .Route .MEDSUPPLY Qty: 1 0RF Rx Instructions: Use as directed to test blood sugars daily. (DME) Blood Sugar Test Stripts See Rx Instructions .Route .MEDSUPPLY Qty: 100 3RF Rx Instructions: Use as directed to check blood sugars daily. (DME) Lancets See Rx Instructions .Route .MEDSUPPLY Qty: 100 3RF Rx Instructions: Use to check blood sugars daily. carvedilol 25 mg tablet 25 mg PO BID Qty: 180 3RF Rx Instructions: must administer with a meal/food cyclobenzaprine 5 mg tablet 5 mg PO TID PRN (Reason: muscle spasm) Qty: 90 0RF acetaminophen-codeine 300-30 mg tablet 1 - 2 tab PO Q4-6H PRN (Reason: pain) Qty: 90 3RF Rx Instructions: Take 1-2 tabs every 4-6 hours as needed for pain. zolpidem [Ambien] 10 mg tablet 10 mg PO HS PRN (Reason: insomnia) Qty: 60 3RF Rx Instructions: Take 1 tablet by mouth at bedtime as needed for sleep, may take 1 additional tab as needed. quetiapine 50 mg tablet 50 - 100 mg PO DAILY Qty: 60 2RF simvastatin [Zocor] 20 mg tablet 20 mg PO DAILY Qty: 90 0RF losartan 50 mg tablet 50 mg PO DAILY Qty: 90 3RF glipizide 5 mg tablet 2.5 mg PO BID Qty: 46 3RF Referrals: Walter Wooten MD [Primary Care Provider] - Visit Report Forms: Patient Portal/API
--- NOTE | 2022-06-20 10:56 | DI.CT.S_ITS ---
PROCEDURE: CT HEAD/BRAIN WO CON INDICATIONS: severe headaches x 5 days TECHNIQUE: Noncontrast 4.5 mm thick angled axial sections acquired from the foramen magnum to the vertex, with coronal and sagittal reformats. For radiation dose reduction, the following was used: automated exposure control, adjustment of mA and/or kV according to patient size. COMPARISON: None. FINDINGS: Image quality: Excellent. CSF spaces: Basal cisterns are patent. No extra-axial fluid collections. Ventricles are normal in size and shape. Brain: No midline shift. No intracranial masses or hemorrhage. Romano-white matter interface is normal. Skull and face: Calvarium and visualized facial bones are intact, without suspicious lesions. Sinuses: Visualized sinuses and mastoids are clear. IMPRESSION: 1. No acute intracranial abnormalities. If clinical symptoms persist, consider MRI for follow-up. Dictated by: Crys Pradhan M.D. on 06/20/2022 at 11:29 Approved by: Crys Pradhan M.D. on 06/20/2022 at 11:32
[2022-06-20 11:00] VITALS: BP 152/74; PULSE 60; RESP 13; O2SAT 95
[2022-06-20 11:14] LABS: Add Manual Diff / Slide Review NO; Basophils Absolute Auto 0 /uL (0-100); Basophils Percent Auto 0.3 % (0-2); Eosinophils Absolute Auto 200 /uL (0-450); Eosinophils Percent Auto 3.4 % (2-4); Hematocrit 40.2 % (41-53); Hemoglobin 14.4 g/dL (13.5-17.5); Lymphocytes Absolute Auto 2300 /uL (1100-4500); Lymphocytes Percent Auto 31.8 % (25-40); Mean Corpuscular HGB Conc 35.8 % (30-36); Mean Corpuscular Hemoglobin 28.9 PG (26-34); Mean Corpuscular Volume 80.7 fL (80-100); Monocytes Absolute Auto 600 /uL (0-900); Monocytes Percent Auto 8.4 % (3-14); Neutrophils Absolute Auto 4100 /uL (1500-7000); Neutrophils Percent Auto 56.1 % (50-75); Platelet Count 183 X10^3/uL (150-400); Red Blood Cell Count 4.98 X10^6/uL (4.5-5.9); Red Cell Distribution Width 13.7 % (11.6-14.8); White Blood Cell Count 7.3 X10^3/uL (4.5-11.0)
[2022-06-20 11:20] VITALS: BP 162/77; PULSE 60; RESP 15; O2SAT 96
[2022-06-20 11:22] LABS: Alanine Aminotransferase 44 IU/L (<50); Albumin 4.2 g/dL (3.5-5.0); Albumin Globulin Ratio 1.4 (1.0-2.8); Alkaline Phosphatase 58 U/L (38-126); Aspartate Aminotransferase 36 IU/L (17-59); BUN Creatinine Ratio 15.3 (6-22); Bilirubin Total 0.5 mg/dL (0.2-1.3); Blood Urea Nitrogen 11 mg/dL (9-20); Calcium 8.8 mg/dL (8.4-10.2); Carbon Dioxide 28 mmol/L (22-32); Chloride 104 mmol/L (98-107); Estimated Glomerular Filt Rate > 60 mL/min (>60); Globulin 3.1 g/dL (1.7-4.1); Glucose 125 mg/dL (70-100); HEMOLYSIS 32 (0-50); Potassium 3.6 mmol/L (3.4-5.1); Sodium 138 mmol/L (137-145); Total Protein 7.3 g/dL (6.3-8.2)
[2022-06-20 11:30] VITALS: BP 144/71; PULSE 58; O2SAT 95
[2022-06-20 11:39] LABS: COVID19 -Nasal RAPID Negative (Negative)
[2022-06-20 12:31] VITALS: BP 174/81; PULSE 60; RESP 18; TEMP 36.4; O2SAT 97
== END 2022-06-20 12:32 | disposition home or self-care (01) ==
PROVIDERS: Emergency Provider Emergency Medicine; PCP Internal Medicine
DX: G43.909 Migraine, unspecified, not intractable, without status migrainosus (principal); Z20.822 Contact with and (suspected) exposure to COVID-19
CPT/HCPCS: 36415; 70450; 80053; 85025; 87635; 93005; 93010; 99283; 99284; C9803

== ENCOUNTER → 2022-08-26 09:15 | Outpatient (CLI) | payer BC, SELFPAY ==
[2022-08-26 11:28] LABS: Hemoglobin A1C% w Est Avg Glu 6.7 % (4.0-6.0)
[2022-08-26 11:50] LABS: Blood Urea Nitrogen 18 mg/dL (9-20); Calcium 9.1 mg/dL (8.4-10.2); Carbon Dioxide 28 mmol/L (22-32); Chloride 99 mmol/L (98-107); Estimated Glomerular Filt Rate > 60 mL/min (>60); Glucose 189 mg/dL (70-100); HEMOLYSIS < 15 (0-50); Potassium 3.5 mmol/L (3.4-5.1); Sodium 139 mmol/L (137-145)
== END ==
PROVIDERS: PCP Internal Medicine; Referring Provider Internal Medicine; Visit Provider Internal Medicine
DX: E11.65 Type 2 diabetes mellitus with hyperglycemia (principal); E78.2 Mixed hyperlipidemia; I10 Essential (primary) hypertension
CPT/HCPCS: 36415; 80048; 83036

== ENCOUNTER → 2023-03-23 06:57 | Outpatient (CLI) | payer BC, SELFPAY ==
[2023-03-23 08:31] LABS: Alanine Aminotransferase 50 IU/L (<50); Albumin 4.2 g/dL (3.5-5.0); Albumin Globulin Ratio 1.5 (1.0-2.8); Alkaline Phosphatase 75 U/L (38-126); Aspartate Aminotransferase 34 IU/L (17-59); BUN Creatinine Ratio 17.8 (6-22); Bilirubin Total 0.5 mg/dL (0.2-1.3); Blood Urea Nitrogen 18 mg/dL (9-20); Calcium 9.1 mg/dL (8.4-10.2); Carbon Dioxide 30 mmol/L (22-32); Chloride 99 mmol/L (98-107); Cholesterol 163 mg/dL (140-199); Creatine Kinase 50 U/L (55-170); Estimated Glomerular Filt Rate > 60 mL/min (>60); Globulin 2.8 g/dL (1.7-4.1); Glucose 158 mg/dL (80-110); HDL Cholesterol 31 mg/dL (40-60); HEMOLYSIS < 15 (0-50); LDL Cholesterol Calculated 70 mg/dL (<100); Potassium 3.7 mmol/L (3.4-5.1); Sodium 137 mmol/L (137-145); Triglycerides 309 mg/dL (35-150)
[2023-03-24 02:07] LABS: Labcorp Hemoglobin (Hb) A1c 7.4 % (4.8-5.6)
== END ==
PROVIDERS: PCP Internal Medicine; Referring Provider Internal Medicine; Visit Provider Internal Medicine
DX: E11.9 Type 2 diabetes mellitus without complications (principal); E78.5 Hyperlipidemia, unspecified; I10 Essential (primary) hypertension; M79.10 Myalgia, unspecified site
CPT/HCPCS: 36415; 80053; 80061; 82550; 83036

== ENCOUNTER 2023-06-20 09:49 | Day surgery (SDC) | payer BC, SELFPAY ==
--- NOTE | 2023-06-20 | PATH_ITS ---
[facility] Accession Number: [id number] No. of containers..01 Tissue . 01 Material submitted: . colon - ASCENDING COLON POLYP . 01 Diagnosis: Ascending Colon, Polyp: Tubular adenoma. MRV 06/28/2023 1459 Local . 01 Electronically signed: . Ivory Nava MD, Pathologist NPI- [id number] . 01 Gross description: . ASCENDING COLON POLYP: Received in formalin is 1 fragment(s) of garza, soft tissue measuring 0.8 x 0.6 x 0.5 cm submitted entirely in 1 cassette(s) /RACHAEL 06/26/2023 1705 Local . 01 Pathologist provided ICD-10: D12.2 . 01 CPT . 167053 Specimen Comment: A courtesy copy of this report has been sent to [phone] Performed at: 01 [facility] [address] [place] [address], [place], [place] [id number] MD Onel Holm MD Phone: [phone]
[2023-06-20 10:09] VITALS: BMI 35.9
[2023-06-20 10:16] VITALS: BP 122/66; PULSE 75; RESP 16; TEMP 36.5; O2SAT 95
[2023-06-20] MEDS: LACTATED RINGERS 1,000 ML 200 ML IV (10:21)
--- NOTE | 2023-06-20 10:43 | P.HP_ITS ---
History of Present Illness History of Present Illness Date Patient Seen: 06/20/23 Time Patient Seen: 10:43 Chief complaint: Screening Colonoscopy Narrative: 58-year-old man personal history of colonic polyps here for routine screening colonoscopy. Last colonoscopy 2016. No family history of intestinal malignancy. No abdominal concerns including pain nausea vomiting unintentional weight loss or blood per rectum. [facility] Medical History (Updated 12/26/22 @ 10:10 by Walter Wooten MD) Colon polyps (04/2017) Depression Diabetes type 2, controlled Essential hypertension H/O adenomatous polyp of colon Human leukocyte antigen B27 positive (05/13/16) Hyperlipidemia Hypertension Insomnia Obstructive sleep apnea Social History household members: spouse Smoking Status: Never smoker eating out: 1-3 times/week Meds Home Medications and Allergies Home Medications Medication Instructions Recorded Confirmed Type sildenafil 100 mg tablet (Viagra) 0 mg PO QDAYP PRN #5 tabs 01/15/19 06/20/23 Rx Blood Sugar Test Stripts #100 ea 01/21/21 03/27/23 Rx Glucometer #1 ea 01/21/21 03/27/23 Rx Lancets #100 ea 01/21/21 03/27/23 Rx amlodipine 10 mg tablet 10 mg PO DAILY #90 tabs 08/02/22 06/20/23 Rx triamterene 75 1 tab PO DAILY #90 tabs 08/02/22 06/20/23 Rx mg-hydrochlorothiazide 50 mg tablet lisinopril 40 mg tablet 40 mg PO DAILY #90 tabs 10/11/22 06/20/23 Rx carvedilol 25 mg tablet 25 mg PO BID #180 tabs 10/17/22 06/20/23 Rx simvastatin 20 mg tablet (Zocor) 20 mg PO DAILY #90 tabs 11/09/22 06/20/23 Rx quetiapine 50 mg tablet 50 - 100 mg PO DAILY #60 tabs 02/20/23 06/20/23 Rx zolpidem 10 mg tablet (Ambien) 10 mg PO HS PRN insomnia #60 tabs 03/16/23 06/20/23 Rx acetaminophen 300 mg-codeine 30 mg 1 - 2 tab PO Q4-6H PRN pain #90 06/27/23 08/15/23 Rx tablet tabs glipizide 5 mg tablet 2.5 mg PO BID #90 tabs 05/05/23 06/20/23 Rx Allergies Allergy/AdvReac Type Severity Reaction Status Date / Time metformin AdvReac Intermediate Diarrhea Verified 06/20/23 10:04 Exam Vital Signs (past 8 hours): - 06/20/23 10:16 Temperature 97.7 F Pulse Rate 75 Respiratory Rate 16 Blood Pressure 122/66 Pulse Oximetry 95 Oxygen Delivery Method Room Air Oxygen Delivery Method Room Air Narrative Exam Narrative: General adult man alert oriented no acute distress Nonlabored respiration Abdomen soft nontender nondistended Assessment & Plan Assessment and plan (1) H/O adenomatous polyp of colon: Status: Inactive Assessment & Plan narrative: The patient requires colorectal screening and colonoscopy is recommended. Technical details were discussed. Risks, benefits, alternatives explained. Risks including but not limited to myocardial infarction, aspiration, bleeding, pain, missed lesion, incomplete examination, need for further radiographic studies, colonic perforation, and need for major abdominal surgery were discussed. All questions were answered to their satisfaction, and they are in agreement with this plan.
[2023-06-20 11:09] VITALS: BP 81/59; PULSE 67; RESP 20; TEMP 36.9; O2SAT 100
[2023-06-20 11:14] VITALS: BP 99/69; PULSE 73; RESP 15; O2SAT 94
--- NOTE | 2023-06-20 11:16 | PM.OP.COLON ---
Operative Date/Time/Diagnoses Date of procedure: 06/20/23 Time of procedure: 11:16 Pre-op diagnosis: Personal history of colonic polyps Post-op diagnosis: other (Colonic polyp x1) Procedure & Clinicians Study performed: Colonoscopy and polypectomy Same procedure as scheduled: Yes Indications: Colorectal screening, history of colonic polyps Surgeon: Leroy Mera Procedure Notes Procedure in detail: The history and physical was performed/updated and the patient is ASA class is 2. The procedure was discussed in detail with the patient. Potential risks complications including infection, bleeding, missed diagnosis, perforation, need for surgery, and were explained. Their questions were answered and informed consent was obtained. Patient was brought to the procedure room and placed standard monitoring equipment. The patient's vital signs were monitored continuously throughout the entire procedure. Prior to starting time-out was performed. The patient was placed in the left lateral recumbent position. Procedural sedation was administered by anesthesia. Examination began with a thorough inspection of the perianal area there was no evidence of fissures, fistulae, external hemorrhoids or cutaneous malignancy. The colonoscopy scope was then placed into the anal canal and was advanced to the cecum, which was identified by the ileocecal valve, the appendiceal orifice and the confluence of the taenia. The scope was then slowly withdrawn examining colon thoroughly in all directions, irrigating it of any residual stool. Ascending colon-5 mm polyp removed with cold snare. The patient tolerated the procedure well. They will be discharged once criteria are met. The prep was of fair quality. The withdrawl time was 7 minutes. Specimen(s): other (Ascending colonic polyp) Complications: none Impression: Colonic polyp x1 Post-procedure Recommendations: High fiber diet Plan for aftercare: Follow-up is dependent on pathology findings. Likely 5 years Disposition: same day surgery
[2023-06-20 11:18] VITALS: BP 97/64; PULSE 70; RESP 14; O2SAT 98
[2023-06-20 11:27] VITALS: BP 98/62; PULSE 68; RESP 12; TEMP 36.6; O2SAT 95
[2023-06-20 11:29] VITALS: BP 100/65; PULSE 69; RESP 16; TEMP 36.4; O2SAT 95
== END 2023-06-20 11:39 | disposition home or self-care (01) ==
PROVIDERS: PCP Internal Medicine; Referring Provider Surgery; Visit Provider Surgery
PROC: 0DJD8ZZ Inspection of Lower Intestinal Tract, Via Natural or Artificial Opening Endoscopic (ICD-10-PCS; CPT 45378; principal; 2023-06-20 10:45)
DX: Z12.11 Encounter for screening for malignant neoplasm of colon (principal); Z86.010 Personal history of colon polyps
CPT/HCPCS: 45385; J2704; J3010

== ENCOUNTER → 2023-06-23 06:43 | Outpatient (CLI) | payer BC, SELFPAY ==
[2023-06-23 07:48] LABS: Hemoglobin A1C% w Est Avg Glu 7.9 % (4.0-6.0)
[2023-06-23 08:03] LABS: Alanine Aminotransferase 42 IU/L (<50); Albumin 4.1 g/dL (3.5-5.0); Albumin Globulin Ratio 1.5 (1.0-2.8); Alkaline Phosphatase 79 U/L (38-126); Aspartate Aminotransferase 33 IU/L (17-59); BUN Creatinine Ratio 15.5 (6-22); Bilirubin Total 0.5 mg/dL (0.2-1.3); Blood Urea Nitrogen 17 mg/dL (9-20); Calcium 9.5 mg/dL (8.4-10.2); Carbon Dioxide 27 mmol/L (22-32); Chloride 100 mmol/L (98-107); Cholesterol 150 mg/dL (140-199); Estimated Glomerular Filt Rate > 60 mL/min (>60); Globulin 2.8 g/dL (1.7-4.1); Glucose 206 mg/dL (80-110); HDL Cholesterol 29 mg/dL (40-60); HEMOLYSIS < 15 (0-50); LDL Cholesterol Calculated 61 mg/dL (<100); Potassium 3.4 mmol/L (3.4-5.1); Sodium 137 mmol/L (137-145); Total Protein 6.9 g/dL (6.3-8.2); Triglycerides 302 mg/dL (35-150)
[2023-06-23 08:30] LABS: Prostate Specific Antigen Scrn 2.17 ng/mL (0.1-4.0)
== END ==
PROVIDERS: PCP Internal Medicine; Referring Provider Internal Medicine; Visit Provider Internal Medicine
DX: E11.9 Type 2 diabetes mellitus without complications (principal); E78.5 Hyperlipidemia, unspecified; I10 Essential (primary) hypertension; Z12.5 Encounter for screening for malignant neoplasm of prostate
CPT/HCPCS: 80053; 80061; 83036; G0103

== ENCOUNTER → 2023-09-22 07:17 | Outpatient (CLI) | payer BC, SELFPAY ==
[2023-09-22 08:26] LABS: Hemoglobin A1C% w Est Avg Glu 8.1 % (4.0-6.0)
[2023-09-22 08:37] LABS: BUN Creatinine Ratio 17.5 (6-22); Blood Urea Nitrogen 21 mg/dL (9-20); Calcium 9.6 mg/dL (8.4-10.2); Carbon Dioxide 31 mmol/L (22-32); Chloride 99 mmol/L (98-107); Estimated Glomerular Filt Rate > 60 mL/min (>60); Glucose 174 mg/dL (80-110); HEMOLYSIS < 15 (0-50); Potassium 3.5 mmol/L (3.4-5.1); Sodium 138 mmol/L (137-145)
[2023-09-22 09:22] LABS: Microalbumin Urine Random < 0.6 mg/dL (0-1.6)
== END ==
PROVIDERS: PCP Internal Medicine; Referring Provider Internal Medicine; Visit Provider Internal Medicine
DX: I10 Essential (primary) hypertension (principal); E78.5 Hyperlipidemia, unspecified; E11.9 Type 2 diabetes mellitus without complications
CPT/HCPCS: 36415; 80048; 82043; 82570; 83036

== ENCOUNTER → 2023-12-22 07:25 | Outpatient (CLI) | payer BC, SELFPAY ==
[2023-12-22 08:05] LABS: Hemoglobin A1C% w Est Avg Glu 8.1 % (4.0-6.0)
[2023-12-22 08:32] LABS: Alanine Aminotransferase 32 IU/L (<50); Albumin 4.2 g/dL (3.5-5.0); Albumin Globulin Ratio 1.4 (1.0-2.8); Alkaline Phosphatase 76 U/L (38-126); Aspartate Aminotransferase 27 IU/L (17-59); BUN Creatinine Ratio 15.2 (6-22); Bilirubin Total 0.7 mg/dL (0.2-1.3); Blood Urea Nitrogen 16 mg/dL (9-20); Calcium 9.3 mg/dL (8.4-10.2); Carbon Dioxide 26 mmol/L (22-32); Chloride 99 mmol/L (98-107); Cholesterol 151 mg/dL (140-199); Estimated Glomerular Filt Rate > 60 mL/min (>60); Glucose 198 mg/dL (80-110); HDL Cholesterol 30 mg/dL (40-60); HEMOLYSIS < 15 (0-50); LDL Cholesterol Calculated 65 mg/dL (<100); Potassium 3.5 mmol/L (3.4-5.1); Sodium 136 mmol/L (137-145); Total Protein 7.2 g/dL (6.3-8.2); Triglycerides 280 mg/dL (35-150)
== END ==
PROVIDERS: PCP Internal Medicine; Referring Provider Internal Medicine; Visit Provider Internal Medicine
DX: E11.9 Type 2 diabetes mellitus without complications (principal); I10 Essential (primary) hypertension
CPT/HCPCS: 36415; 80053; 80061; 83036

== ENCOUNTER → 2024-04-03 08:03 | Outpatient (CLI) | payer BC, SELFPAY ==
[2024-04-03 09:21] LABS: Hemoglobin A1C% w Est Avg Glu 9.1 % (4.0-6.0)
[2024-04-03 09:24] LABS: BUN Creatinine Ratio 14.3 (6-22); Blood Urea Nitrogen 16 mg/dL (9-20); Carbon Dioxide 29 mmol/L (22-32); Chloride 102 mmol/L (98-107); Estimated Glomerular Filt Rate > 60 mL/min (>60); Glucose 204 mg/dL (80-110); HEMOLYSIS < 15 (0-50); Potassium 3.5 mmol/L (3.4-5.1); Sodium 138 mmol/L (137-145)
== END ==
PROVIDERS: PCP Internal Medicine; Referring Provider Internal Medicine; Visit Provider Internal Medicine
DX: E11.9 Type 2 diabetes mellitus without complications (principal); I10 Essential (primary) hypertension
CPT/HCPCS: 36415; 80048; 83036

== ENCOUNTER → 2024-07-02 11:49 | Outpatient (CLI) | payer BC, SELFPAY ==
[2024-07-02 12:52] LABS: Hemoglobin A1C% w Est Avg Glu 6.4 % (4.0-6.0)
[2024-07-02 13:03] LABS: BUN Creatinine Ratio 16.9 (6-22); Blood Urea Nitrogen 20 mg/dL (9-20); Calcium 9.1 mg/dL (8.4-10.2); Carbon Dioxide 26 mmol/L (22-32); Chloride 100 mmol/L (98-107); Estimated Glomerular Filt Rate > 60 mL/min (>60); Glucose 164 mg/dL (80-110); HEMOLYSIS < 15 (0-50); Potassium 3.5 mmol/L (3.4-5.1); Sodium 137 mmol/L (137-145)
== END ==
LOC: LAB 11:50
PROVIDERS: PCP Internal Medicine; Referring Provider Internal Medicine; Visit Provider Internal Medicine
DX: E11.65 Type 2 diabetes mellitus with hyperglycemia (principal); I10 Essential (primary) hypertension
CPT/HCPCS: 36415; 80048; 83036

== ENCOUNTER → 2024-09-05 06:57 | Outpatient (CLI) | payer BC, SELFPAY ==
[2024-09-05 08:42] LABS: Hemoglobin A1C% w Est Avg Glu 6.8 % (4.0-6.0)
[2024-09-05 08:46] LABS: Alanine Aminotransferase 40 IU/L (<50); Albumin 4.3 g/dL (3.5-5.0); Albumin Globulin Ratio 1.7 (1.0-2.8); Alkaline Phosphatase 70 U/L (38-126); Aspartate Aminotransferase 34 IU/L (17-59); BUN Creatinine Ratio 11.9 (6-22); Bilirubin Total 0.6 mg/dL (0.2-1.3); Blood Urea Nitrogen 14 mg/dL (9-20); Calcium 9.4 mg/dL (8.4-10.2); Carbon Dioxide 29 mmol/L (22-32); Chloride 101 mmol/L (98-107); Cholesterol 151 mg/dL (140-199); Estimated Glomerular Filt Rate > 60 mL/min (>60); Globulin 2.6 g/dL (1.7-4.1); Glucose 132 mg/dL (80-110); HDL Cholesterol 30 mg/dL (40-60); HEMOLYSIS < 15 (0-50); LDL Cholesterol Calculated 69 mg/dL (<100); Potassium 3.5 mmol/L (3.4-5.1); Sodium 138 mmol/L (137-145); Total Protein 6.9 g/dL (6.3-8.2); Triglycerides 258 mg/dL (35-150)
== END ==
PROVIDERS: PCP Internal Medicine; Referring Provider Internal Medicine; Visit Provider Internal Medicine
DX: E11.9 Type 2 diabetes mellitus without complications (principal); I10 Essential (primary) hypertension; E78.5 Hyperlipidemia, unspecified; F11.20 Opioid dependence, uncomplicated; K59.00 Constipation, unspecified; T50.905A Adverse effect of unspecified drugs, medicaments and biological substances, initial encounter
CPT/HCPCS: 36415; 80053; 80061; 83036

== ENCOUNTER → 2024-12-05 07:49 | Outpatient (CLI) | payer BC, SELFPAY ==
[2024-12-05 08:33] LABS: Alanine Aminotransferase 46 IU/L (<50); Albumin 4.4 g/dL (3.5-5.0); Albumin Globulin Ratio 1.8 (1.0-2.8); Alkaline Phosphatase 78 U/L (38-126); Aspartate Aminotransferase 40 IU/L (17-59); BUN Creatinine Ratio 15.3 (6-22); Bilirubin Total 0.6 mg/dL (0.2-1.3); Blood Urea Nitrogen 18 mg/dL (9-20); Calcium 9.1 mg/dL (8.4-10.2); Carbon Dioxide 25 mmol/L (22-32); Chloride 101 mmol/L (98-107); Estimated Glomerular Filt Rate > 60 mL/min (>60); Globulin 2.5 g/dL (1.7-4.1); Glucose 245 mg/dL (80-110); HEMOLYSIS < 15 (0-50); Potassium 3.3 mmol/L (3.4-5.1); Sodium 137 mmol/L (137-145); Total Protein 6.9 g/dL (6.3-8.2)
== END ==
PROVIDERS: PCP Internal Medicine; Referring Provider Internal Medicine; Visit Provider Internal Medicine
DX: E11.9 Type 2 diabetes mellitus without complications (principal)
CPT/HCPCS: 36415; 80053; 83036

== ENCOUNTER → 2025-01-02 11:37 | Outpatient (CLI) | payer BC, SELFPAY ==
[2025-01-02 12:54] LABS: BUN Creatinine Ratio 13.5 (6-22); Blood Urea Nitrogen 15 mg/dL (9-20); Calcium 9.5 mg/dL (8.4-10.2); Carbon Dioxide 25 mmol/L (22-32); Chloride 104 mmol/L (98-107); Estimated Glomerular Filt Rate > 60 mL/min (>60); Glucose 128 mg/dL (80-110); HEMOLYSIS < 15 (0-50); Magnesium 1.7 mg/dL (1.6-2.3); Potassium 3.8 mmol/L (3.4-5.1); Sodium 140 mmol/L (137-145)
== END ==
PROVIDERS: PCP Internal Medicine; Referring Provider Internal Medicine; Visit Provider Internal Medicine
DX: I10 Essential (primary) hypertension (principal); E87.6 Hypokalemia
CPT/HCPCS: 36415; 80048; 83735

== ENCOUNTER → 2025-03-11 07:21 | Outpatient (CLI) | payer BC, SELFPAY ==
[2025-03-11 08:18] LABS: Hemoglobin A1C% w Est Avg Glu 6.5 % (4.0-6.0)
[2025-03-11 08:21] LABS: Alanine Aminotransferase 28 IU/L (<50); Albumin 4.5 g/dL (3.5-5.0); Albumin Globulin Ratio 1.7 (1.0-2.8); Alkaline Phosphatase 69 U/L (38-126); Aspartate Aminotransferase 25 IU/L (17-59); BUN Creatinine Ratio 17.4 (6-22); Bilirubin Total 0.4 mg/dL (0.2-1.3); Blood Urea Nitrogen 24 mg/dL (9-20); Calcium 9.5 mg/dL (8.4-10.2); Carbon Dioxide 23 mmol/L (22-32); Chloride 104 mmol/L (98-107); Estimated Glomerular Filt Rate 58 mL/min (>60); Globulin 2.6 g/dL (1.7-4.1); Glucose 125 mg/dL (70-99); HEMOLYSIS < 15 (0-50); Potassium 4.7 mmol/L (3.4-5.1); Sodium 137 mmol/L (137-145); Total Protein 7.1 g/dL (6.3-8.2)
[2025-03-11 09:03] LABS: Creatinine Urine Random 97.27 mg/dL
[2025-03-11 09:09] LABS: Microalbumin Urine Random < 0.6 mg/dL (0-1.6)
== END ==
PROVIDERS: PCP Internal Medicine; Referring Provider Internal Medicine; Visit Provider Internal Medicine
DX: E11.9 Type 2 diabetes mellitus without complications (principal); I10 Essential (primary) hypertension
CPT/HCPCS: 36415; 80053; 82043; 82570; 83036

== ENCOUNTER 2025-05-20 16:40 | Emergency (ER) | payer BC, SELFPAY ==
[2025-05-20 17:09] VITALS: BP 161/67; PULSE 84; RESP 18; TEMP 37.4; O2SAT 95; BMI 37.2
--- NOTE | 2025-05-20 18:24 | DI.CT.S_ITS ---
PROCEDURE: CT ABDOMEN PELVIS WO CON INDICATIONS: abd pain / constipation TECHNIQUE: CT of the abdomen and pelvis was obtained without intravenous contrast. Coronal and sagittal reformats were performed. For radiation dose reduction, the following was used: automated exposure control, adjustment of mA and/or kV according to patient size. COMPARISON: None. FINDINGS: Image quality: Diagnostic. Lower Chest: No significant findings. ABDOMEN: Liver: No contour-deforming mass. Gallbladder: No radiopaque gallstones or wall thickening. Biliary ducts: No biliary dilation. Pancreas: No ductal dilation. Spleen: Size is within normal limits. Adrenal Glands: No adrenal nodules. Kidneys and Ureters: No hydronephrosis. No contour-deforming mass. Stomach and Bowel: There is no significant bowel dilatation. Moderate to large amount of stool seen in the right colon as well the rectosigmoid, the rectum measuring 7 x 5.5 cm. There is mild wall thickening of the rectum with adjacent fat stranding. No fluid collection. Peritoneum: No abnormal intraperitoneal fluid. No free air. Ventral Wall: No significant hernia. Abdominal Nodes: No retroperitoneal or mesenteric adenopathy by size criteria. Vessels: Aorta and inferior vena cava are normal in size. PELVIS: Pelvic Organs: Unremarkable. Bladder: Unremarkable. Pelvic Nodes: No enlarged lymph nodes. Miscellaneous: No inguinal hernias are seen. Bones: No aggressive osseous abnormality. IMPRESSION: 1. Findings suggestive of constipation with associated fecal impaction and probable superimposed stercoral proctitis. 2. No convincing signs of obstruction or other acute intra-abdominal abnormality. Dictated by: Antoine Yanes M.D. on 05/20/2025 at 19:35 Approved by: Antoine Yanes M.D. on 05/20/2025 at 19:39
[2025-05-20 21:40] VITALS: BP 134/79; PULSE 105; RESP 18; O2SAT 99
[2025-05-20 23:01] VITALS: PULSE 105; O2SAT 98
[2025-05-20 23:30] VITALS: BP 123/54; PULSE 95; O2SAT 97
--- NOTE | 2025-05-20 23:31 | ED.ABDPAIN ---
HPI - Abdominal Pain General Chief Complaint: Abdominal Pain Stated Complaint: pcp ref, constipation ,abd pain Time Seen by Provider: 05/20/25 18:04 Source: patient Mode of arrival: Ambulatory History of Present Illness HPI narrative: 60-year-old male history of hypertension ,dyslipidemia, diabetes, opioid dependence seen at clinic today referred over here presents with no bowel movement in the past 24 hours. He is on Metamucil but stopped taking it last week because he had some runny stools but attributes being on Trulicity for diabetes that has resulted in constipation. Other than what is stated 14 point review of systems negative. Related Data Previous Rx's ?Medication ?Instructions ?Recorded sildenafil 100 mg tablet (Viagra) 0 mg (0 x 100 mg) PO QDAYP PRN #5 01/15/19 tabs Blood Sugar Test Stripts #100 ea 01/21/21 Glucometer #1 ea 01/21/21 Lancets #100 ea 01/21/21 carvedilol 25 mg tablet 25 mg PO BID #180 tabs 07/12/24 simvastatin 20 mg tablet (Zocor) 20 mg PO DAILY #90 tabs 08/09/24 lisinopril 40 mg tablet 40 mg PO DAILY #90 tabs 09/09/24 glipizide 10 mg tablet 10 mg PO BID #180 tabs 12/05/24 spironolactone 50 mg tablet 50 mg PO DAILY #90 tabs 01/02/25 quetiapine 50 mg tablet 50 - 100 mg (1 - 2 x 50 mg) PO 02/03/25 DAILY #60 tabs dulaglutide 0.75 mg/0.5 mL 0.75 mg (0.5 mL) SUBCUT QWEEK #6 mL 02/21/25 subcutaneous pen injector (Trulicity) acetaminophen 300 mg-codeine 30 mg 1 - 2 tab PO Q4-6H PRN pain #90 03/11/25 tablet tabs acetaminophen 300 mg-codeine 30 mg 1 - 2 tab PO Q4-6H PRN pain #90 03/11/25 tablet tabs acetaminophen 300 mg-codeine 30 mg 1 - 2 tab PO Q4-6H PRN pain #90 03/11/25 tablet tabs zolpidem 10 mg tablet (Ambien) 10 mg PO HS PRN insomnia #60 tabs 03/11/25 hydrocortisone acetate 25 mg 25 mg AL BID #12 ea 05/20/25 rectal suppository (Anusol-HC) lactulose 10 gram/15 mL oral 15 ml PO BEDTIME #473 mL 05/21/25 solution Allergies Allergy/AdvReac Type Severity Reaction Status Date / Time metformin AdvReac Intermediate Diarrhea Verified 05/20/25 17:14 Review of Systems Review of Systems ROS Unobtainable: All systems reviewed & are unremarkable except as noted in HPI and below Patient History Medical History Chronic migraine Chronic pain Opioid dependence H/O adenomatous polyp of colon Diabetes type 2, controlled Depression Hypertension Colon polyps (04/2017) Human leukocyte antigen B27 positive (05/13/16) Essential hypertension Insomnia Hyperlipidemia Obstructive sleep apnea Social History household members: spouse Smoking Status: Never smoker eating out: 1-3 times/week Smoking Status: Never smoker alcohol intake frequency: a few times a month Exam Narrative Exam Narrative: GENERAL: [60] year old patient appears stated age. Well-developed patient, in mild distress. HEAD: Atraumatic. Normocephalic. EYES: Pupils equal round and reactive. Extraocular motions intact. No scleral icterus. No injection or drainage. ENT: Nose without bleeding, purulent drainage. Throat without erythema, tonsillar hypertrophy or exudate. Airway patent. NECK: Trachea midline. Non tender CARDIOVASCULAR: Regular rate and rhythm without murmurs, gallops, or rubs. RESPIRATORY: Clear to auscultation. Breath sounds equal bilaterally. No wheezes, rales, or rhonchi. GASTROINTESTINAL: Abdomen soft, non-tender, nondistended. EXTREMITIES: No edema or joint tenderness. BACK: Nontender without deformity or crepitance. No flank tenderness. NEURO: AOx3. SKIN: No rash or erythema of visible areas Initial Vital Signs Initial Vital Signs: Vital Signs Temperature 99.3 F 05/20/25 17:09 Pulse Rate 84 05/20/25 17:09 Respiratory Rate 18 05/20/25 17:09 Blood Pressure 161/67 H 05/20/25 17:09 Pulse Oximetry 95 05/20/25 17:09 Oxygen Delivery Method Room Air 05/20/25 17:09 Course Orders Ordered: ED Orders 05/20/25 18:24 CT abdomen pelvis wo con Stat Discontinued Medications Ketorolac Tromethamine (Ketorolac 30 Mg/Ml Vial) 30 mg IM NOW ONE Stop: 05/21/25 00:13 Last Admin: 05/21/25 00:26 Dose: 30 mg Documented By: RHONA Mineral Oil (Mineral Oil 1 Each Enema) 1 each AL NOW ONE Stop: 05/21/25 00:16 Last Admin: 05/21/25 00:25 Dose: 1 each Documented By: RHONA Vital Signs Vital signs: Vital Signs - 8 hr 05/20/25 17:09 05/20/25 21:40 Temperature 99.3 F Pulse Rate 84 105 H Respiratory Rate 18 18 Blood Pressure 161/67 H 134/79 Pulse Oximetry 95 99 Oxygen Delivery Method Room Air Room Air MDM - Abdominal Pain Imaging Data CT scan - abdomen/pelvis: Radiologist's Impression: [address] [address] [address] Scan Report Signed Patient: Deena Greene MR#: [id number] : 1965 Acct:[id number] Age/Sex: 60 / M Date of Service: 05/20/25 Loc: ED Accession Number: [id number] Procedure: CT abdomen pelvis wo con Ordering Provider: Walter Grace D.O. PROCEDURE: CT ABDOMEN PELVIS WO CON INDICATIONS: abd pain / constipation TECHNIQUE: CT of the abdomen and pelvis was obtained without intravenous contrast. Coronal and sagittal reformats were performed. For radiation dose reduction, the following was used: automated exposure control, adjustment of mA and/or kV according to patient size. COMPARISON: None. FINDINGS: Image quality: Diagnostic. Lower Chest: No significant findings. ABDOMEN: Liver: No contour-deforming mass. Gallbladder: No radiopaque gallstones or wall thickening. Biliary ducts: No biliary dilation. Pancreas: No ductal dilation. Spleen: Size is within normal limits. Adrenal Glands: No adrenal nodules. Kidneys and Ureters: No hydronephrosis. No contour-deforming mass. Stomach and Bowel: There is no significant bowel dilatation. Moderate to large amount of stool seen in the right colon as well the rectosigmoid, the rectum measuring 7 x 5.5 cm. There is mild wall thickening of the rectum with adjacent fat stranding. No fluid collection. Peritoneum: No abnormal intraperitoneal fluid. No free air. Ventral Wall: No significant hernia. Abdominal Nodes: No retroperitoneal or mesenteric adenopathy by size criteria. Vessels: Aorta and inferior vena cava are normal in size. PELVIS: Pelvic Organs: Unremarkable. Bladder: Unremarkable. Pelvic Nodes: No enlarged lymph nodes. Miscellaneous: No inguinal hernias are seen. Bones: No aggressive osseous abnormality. IMPRESSION: 1. Findings suggestive of constipation with associated fecal impaction and probable superimposed stercoral proctitis. 2. No convincing signs of obstruction or other acute intra-abdominal abnormality. Dictated by: Antoine Yanes M.D. on 05/20/2025 at 19:35 Approved by: Antoine Yanes M.D. 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 Pt give SSE, manually disimpacted, Toradol IM. 1. Findings suggestive of constipation with associated fecal impaction and probable superimposed stercoral proctitis.2. No convincing signs of obstruction or other acute intra-abdominal abnormality. Patient ended up having a big bowel movement. We will do is discharged home on lactulose. Differential diagnosis includes constipation obstipation small-bowel obstruction. Discharge Plan Departure Patient Disposition: Home Clinical Impression: Constipation Qualifiers: Constipation type: slow transit constipation Qualified Code(s): K59.01 - Slow transit constipation Instructions: DI for Constipation Activity Restrictions/Additional Instructions: Return with new or worsening symptoms. Take your medicines as directed. Keep hydrated. Prescriptions: New lactulose 10 gram/15 mL solution 15 ml PO BEDTIME Qty: 473 0RF No Action sildenafil [Viagra] 100 mg tablet 0 mg PO QDAYP PRNQty: 5 11RF (DME) Glucometer See Rx Instructions .Route .MEDSUPPLY Qty: 1 0RF Rx Instructions: Use as directed to test blood sugars daily. (DME) Blood Sugar Test Stripts See Rx Instructions .Route .MEDSUPPLY Qty: 100 3RF Rx Instructions: Use as directed to check blood sugars daily. (DME) Lancets See Rx Instructions .Route .MEDSUPPLY Qty: 100 3RF Rx Instructions: Use to check blood sugars daily. carvedilol 25 mg tablet 25 mg PO BID Qty: 180 3RF Rx Instructions: must administer with a meal/food simvastatin [Zocor] 20 mg tablet 20 mg PO DAILY Qty: 90 3RF lisinopril 40 mg tablet 40 mg PO DAILY Qty: 90 3RF glipizide 10 mg tablet 10 mg PO BID Qty: 180 3RF spironolactone 50 mg tablet 50 mg PO DAILY Qty: 90 3RF quetiapine 50 mg tablet 50 - 100 mg PO DAILY Qty: 60 2RF Trulicity 0.75 mg/0.5 mL pen injector 0.75 mg SUBCUT QWEEK Qty: 6 2RF acetaminophen-codeine 300-30 mg tablet 1 - 2 tab PO Q4-6H MDD 4 tabs PRN (Reason: pain) Qty: 90 0RF Rx Instructions: okay to refill on/after 03/11/2025 acetaminophen-codeine 300-30 mg tablet 1 - 2 tab PO Q4-6H MDD 4 tabs PRN (Reason: pain) Qty: 90 0RF Rx Instructions: okay to refill on 04/08/2025 acetaminophen-codeine 300-30 mg tablet 1 - 2 tab PO Q4-6H MDD 4 tabs PRN (Reason: pain) Qty: 90 0RF Rx Instructions: Take 1-2 tabs every 4-6 hours as needed for pain. Okay to refill on/after 05/06/2025 zolpidem [Ambien] 10 mg tablet 10 mg PO HS PRN (Reason: insomnia) Qty: 60 3RF Rx Instructions: Take 1 tablet by mouth at bedtime as needed for sleep, may take 1 additional tab as needed. Okay to fill on 03/27/25 first time hydrocortisone acetate [Anusol-HC] 25 mg suppository 25 mg AL BID Qty: 12 0RF Referrals: Walter Wooten MD [Primary Care Provider, Internal Medicine] Stand Alone Forms: Patient Portal/API
[2025-05-21] MEDS: MINERAL OIL 1 EACH ENEMA PR (00:25)
[2025-05-21] MEDS: KETOROLAC 30 MG/ML VIAL IM (00:26)
== END 2025-05-21 01:30 | disposition home or self-care (01) ==
PROVIDERS: Emergency Provider Family Medicine; PCP Internal Medicine
DX: K59.01 Slow transit constipation (principal); E11.9 Type 2 diabetes mellitus without complications; Z79.85 Long-term (current) use of injectable non-insulin antidiabetic drugs
CPT/HCPCS: 51701; 74176; 99283; J1885

== ENCOUNTER 2025-05-22 19:50 | Inpatient (IN) | payer BC, SELFPAY ==
[2025-05-22] VITALS (22 sets, daily range): BP systolic 86–116; BP diastolic 49–62; PULSE 85–109; RESP 15–30; TEMP 36.9–39.2; O2SAT 91–98; BMI 37.2
--- NOTE | 2025-05-22 19:54 | DI.RAD.S_ITS ---
PROCEDURE: XR CHEST 1V INDICATIONS: sepsise TECHNIQUE: One view of the chest was acquired. COMPARISON: [facility], CR, XR CHEST 2V, 04/14/2018, 18:33. FINDINGS: Surgical changes and devices: None. Lungs and pleura: Lungs are clear. No pleural effusions or pneumothorax. Mediastinum: Mediastinal contours appear normal. Heart size is normal. Bones and chest wall: No suspicious bony lesions. Overlying soft tissues appear unremarkable. IMPRESSION: No acute pulmonary process. Dictated by: Chica Alonzo M.D. on 05/22/2025 at 20:26 Approved by: Chica Alonzo M.D. on 05/22/2025 at 20:26
--- NOTE | 2025-05-22 19:54 | DI.CT.S_ITS ---
PROCEDURE: CT ABDOMEN PELVIS WO CON INDICATIONS: Hematuria, septic TECHNIQUE: CT of the abdomen and pelvis was obtained without intravenous contrast. Coronal and sagittal reformats were performed. For radiation dose reduction, the following was used: automated exposure control, adjustment of mA and/or kV according to patient size. COMPARISON: [facility], CT, CT ABDOMEN PELVIS WO [facility], 05/20/2025, 19:21. FINDINGS: Image quality: Diagnostic. Lower Chest: No significant findings. ABDOMEN: Liver: No contour-deforming mass. Gallbladder: No radiopaque gallstones or wall thickening. Biliary ducts: No biliary dilation. Pancreas: No ductal dilation. Spleen: Size is within normal limits. Adrenal Glands: No adrenal nodules. Kidneys and Ureters: No hydronephrosis. No contour-deforming mass. Stomach and Bowel: Normal colonic caliber, without significant wall thickening. Scattered colonic stool without obstruction. Peritoneum: No abnormal intraperitoneal fluid. No free air. Ventral Wall: Trace fat containing significant hernia. Abdominal Nodes: No retroperitoneal or mesenteric adenopathy by size criteria. Vessels: Aorta and inferior vena cava are normal in size. PELVIS: Pelvic Organs: Prostate gland is enlarged. Bladder: Interval bladder wall thickening with pericystic stranding. Bladder is incompletely distended. Pelvic Nodes: No enlarged lymph nodes. Miscellaneous: Bilateral fat containing inguinal hernias are seen. Bones: No aggressive osseous abnormality. IMPRESSION: Interval development of bladder wall thickening as well as pericystic stranding. Although the bladder is incompletely distended, the presence of associated inflammation raises suspicion for infection. Recommend correlation to laboratory values. Dictated by: Chica Alonzo M.D. on 05/22/2025 at 20:34 Approved by: Chica Alonzo M.D. on 05/22/2025 at 20:37
[2025-05-22] MEDS: SODIUM CHLORIDE 0.9% 1,000 ML 1000 ML IV ×2 (20:06→22:12)
--- NOTE | 2025-05-22 20:07 | EKG_ITS ---
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
[2025-05-22 20:13] LABS: Add Manual Diff / Slide Review NO; Hematocrit 40.7 % (41-53); Hemoglobin 14.2 g/dL (13.5-17.5); Lymphocytes Absolute Auto 1000 /uL (1100-4500); Mean Corpuscular HGB Conc 34.9 % (30-36); Mean Corpuscular Hemoglobin 29.4 PG (26-34); Mean Corpuscular Volume 84.3 fL (80-100); Platelet Count 228 X10^3/uL (150-400)
[2025-05-22] MEDS: ACETAMINOPHEN IV 1,000 MG/100 ML VIAL 400 MG IV (20:19)
[2025-05-22] MEDS: cefTRIAXone 2,000 MG in SODIUM CHLORIDE 0.9% 100 ML 200 MG IV (20:20)
[2025-05-22 20:23] LABS: INR 1.1 (0.9-1.3); Prothrombin Time 12.9 SECONDS (9.4-12.5)
[2025-05-22 20:27] LABS: Lactate (Lactic Acid) 1.3 mmol/L (0.7-2.1)
[2025-05-22 20:28] LABS: Alanine Aminotransferase 26 IU/L (<50); Albumin 4.6 g/dL (3.5-5.0); Albumin Globulin Ratio 1.5 (1.0-2.8); Alkaline Phosphatase 63 U/L (38-126); Blood Urea Nitrogen 19 mg/dL (9-20); Calcium 9.7 mg/dL (8.4-10.2); Carbon Dioxide 18 mmol/L (22-32); Chloride 99 mmol/L (98-107); Estimated Glomerular Filt Rate 56 mL/min (>60); Globulin 3.1 g/dL (1.7-4.1); Glucose 176 mg/dL (70-99); HEMOLYSIS < 15 (0-50); Potassium 5.1 mmol/L (3.4-5.1); Sodium 128 mmol/L (137-145); Total Protein 7.7 g/dL (6.3-8.2)
[2025-05-22 20:34] LABS: PTT Partial Thromboplastin Tim 28 SECONDS (25.1-36.5)
[2025-05-22 20:46] LABS: Procalcitonin 0.292 ng/mL (<0.5)
[2025-05-22 21:53] LABS: Appearance Urine UA CLEAR; Bilirubin Urine UA NEGATIVE (NEGATIVE); Color Urine UA YELLOW; Glucose Urine UA NEGATIVE (Negative); Ketones Urine UA NEGATIVE (NEGATIVE); Leukocyte Esterase Urine UA 1+ (NEGATIVE); Nitrite Urine UA NEGATIVE (Negative); Occult Blood Urine UA 3+ (Negative); Protein Urine UA TRACE (Negative); Specific Gravity Urine UA <=1.005 (1.000-1.035); Urobilinogen Urine UA 0.2 E.U./dL (0.2); pH Urine UA 5.5 (4.5-8.0)
[2025-05-22 22:02] LABS: Culture Indicated Urine Specimen Cultured
--- NOTE | 2025-05-22 22:50 | ED_ITS ---
HPI - Sepsis General Chief Complaint: Urogenital-Male Mode of arrival: EMS Source: patient Limitations: no limitations Evaluation Sepsis Screen: Possible Sepsis Risk Sepsis Infection Criteria Present: Suspected New Infection Narrative: Pleasant 60-year-old man who was seen in our ER a few days ago for acute urinary retention for which he was straight cath comes to the ER today with gross hematuria, dysuria, urgency frequency, as well as fever chills and nausea. He denies any abdominal pain, flank pain, history of kidney stones. He denies any history of UTI. He has no other concerns or complaints at this time. Patient History Medical History Chronic migraine Chronic pain Opioid dependence H/O adenomatous polyp of colon Diabetes type 2, controlled Depression Hypertension Colon polyps (04/2017) Human leukocyte antigen B27 positive (05/13/16) Essential hypertension Insomnia Hyperlipidemia Obstructive sleep apnea Social History household members: spouse Smoking Status: Unknown if ever smoked eating out: 1-3 times/week Smoking Status: Unknown if ever smoked alcohol intake frequency: a few times a month Exam Initial Vital Signs Initial Vital Signs: Vital Signs Pulse Rate 109 H 05/22/25 19:52 Respiratory Rate 23 05/22/25 19:52 Pulse Oximetry 93 05/22/25 19:52 Const General: cooperative, No acute distress, No in distress, No diaphoretic and ill appearing HENMT Head: normocephalic and atraumatic Neck Neck: no meningeal signs, supple, No positive Brudzinski's sign, No positive Kernig's sign and No tender Resp Effort & Inspection: normal respiratory effort Auscultation: clear to auscultation bilaterally Cardio Rate: tachycardic Rhythm: regular rhythm Heart Sounds: S1 normal and S2 normal GI Inspection: normal to inspection, no edema and non-distended Palpation: soft and No tender Auscultation: normal bowel sounds General: No CVA tenderness Back/Spine/Pelvis Back: No back tenderness and No CVA tenderness Neuro General: patient alert, patient awake, patient oriented x3, moves all extremities and CN's II-XI intact bilaterally Course Course Course Narrative: Patient seen and examined by myself once he was roomed in the ER. His presentation was extremely concerning for urosepsis especially given his recent catheterization. He was given full sepsis fluid bolus, Rocephin and his blood pressure remained within normal limits. His lactate was within normal limits as well. The patient will require ongoing IV antibiotic therapy for urosepsis and I discussed the case with Dr. Lee the hospitalist who accepted the patient for admission to the ICU. Orders Ordered: ED Orders 05/22/25 19:54 CT abdomen pelvis wo con Stat XR chest 1V Stat EKG-12 Lead Stat 05/22/25 20:00 Complete Blood Count AUTO DIFF Stat Comprehensive Metabolic Panel Stat Lactate (Lactic Acid) Stat PTT Partial Thromboplastin [place] Stat Procalcitonin Stat Prothrombin Time INR Stat 05/22/25 20:05 Blood Culture Stat 05/22/25 21:47 Urinalysis and Microscopic Stat Urine Culture Stat 05/23/25 06:00 Basic Metabolic Panel DAILY Complete Blood Count AUTO DIFF DAILY Acetaminophen (Acetaminophen 325 Mg Tablet) 650 mg PO Q6H PRN PRN Reason: Fever/Mild Pain (1-3) Hydrocodone Bitart/Acetaminophen (Hydrocodone/Acet 5/325 Tablet) 1 tab PO Q4H PRN PRN Reason: Pain, Moderate (4-6) Heparin Sodium (Porcine) (Heparin 5,000 Unit/Ml Vial) 5,000 unit SUBCUT BID REESE Sodium Chloride (Normal Saline 0.9%) 1,000 mls @ 100 mls/hr IV CONT REESE Ceftriaxone Sodium 1,000 mg/ (Sodium Chloride) 100 mls @ 200 mls/hr IV Q24H REESE Sodium Chloride (Normal Saline 0.9%) 1,000 mls @ 1,000 mls/hr IV BOLUS ONE Stop: 05/22/25 23:09 Last Admin: 05/22/25 22:12 Dose: 1,000 mls/hr Documented By: VITALIY Naloxone HCl (Naloxone 0.4 Mg/Ml Vial) 0.2 mg IV Q2MIN PRN PRN Reason: Opiate Reversal Ondansetron HCl (Ondansetron 4 Mg/2 Ml Inj) 4 mg IV Q8HR PRN PRN Reason: Nausea And Vomiting Discontinued Medications Sodium Chloride (Normal Saline 0.9%) 1,000 mls @ 1,000 mls/hr IV BOLUS ONE Stop: 05/22/25 20:53 Last Infusion: 05/22/25 22:09 Dose: Infused Documented By: Admin: 05/22/25 20:06 Dose: 1,000 mls/hr Documented By: JAVIER Acetaminophen (Ofirmev) 1,000 mg in 100 mls @ 400 mls/hr IV NOW ONE Stop: 05/22/25 20:25 Last Infusion: 05/22/25 20:45 Dose: Infused Documented By: Admin: 05/22/25 20:19 Dose: 400 mls/hr Documented By: VITALIY Ceftriaxone Sodium 2,000 mg/ (Sodium Chloride) 100 mls @ 200 mls/hr IV NOW ONE Stop: 05/22/25 20:14 Last Infusion: 05/22/25 21:13 Dose: Infused Documented By: Admin: 05/22/25 20:20 Dose: 200 mls/hr Documented By: VITALIY Vital Signs Vital signs: Vital Signs - 8 hr 05/22/25 19:52 05/22/25 20:00 05/22/25 20:02 Temperature Pulse Rate 109 H 109 H 109 H Respiratory Rate 23 21 26 H Blood Pressure Pulse Oximetry 93 91 92 Oxygen Delivery Method 05/22/25 20:02 05/22/25 20:07 05/22/25 20:15 Temperature 102.5 F H Pulse Rate 109 H 106 H Respiratory Rate 30 H 26 H Blood Pressure 116/57 L 116/57 L Pulse Oximetry 92 94 Oxygen Delivery Method Room Air Room Air 05/22/25 20:15 05/22/25 20:30 05/22/25 20:30 Temperature Pulse Rate 102 H Respiratory Rate 19 Blood Pressure 106/62 115/58 L Pulse Oximetry 94 Oxygen Delivery Method 05/22/25 20:45 05/22/25 20:45 05/22/25 21:00 Temperature Pulse Rate 100 H 93 H Respiratory Rate 22 18 Blood Pressure 107/59 L Pulse Oximetry 95 96 Oxygen Delivery Method 05/22/25 21:00 05/22/25 21:15 05/22/25 21:15 Temperature Pulse Rate 91 H Respiratory Rate 17 Blood Pressure 109/58 L 86/52 L Pulse Oximetry 97 Oxygen Delivery Method 05/22/25 21:18 05/22/25 21:18 05/22/25 21:28 Temperature Pulse Rate 92 H Respiratory Rate 24 Blood Pressure 97/53 L 108/54 L Pulse Oximetry 96 Oxygen Delivery Method 05/22/25 22:00 Temperature 98.5 F Pulse Rate Respiratory Rate Blood Pressure Pulse Oximetry Oxygen Delivery Method Sepsis Evaluation (ED) Triage Screening Sepsis Screen: Possible Sepsis Risk Level 1 - Infection Sepsis Infection Criteria Present: Suspected New Infection Response It is my opinion that this patient have a likely infectious etiology for meeting sepsis criteria: Does Fluid calculation based on 30 mL/kg within 1hr of criteria: ABW used Antibiotics initiated within 1 hr of Sepis dx: Yes Tissue Perfusion Reassessed within 6 hrs of infusion start time: Yes Date of Tissue Perfusion Reassessment completed: 05/22/25 Time Tissue Perfusion Reassessment completed: 22:55 MDM - Sepsis Lab Data 05/22/25 20:00 05/22/25 20:00 Labs: Lab Results 05/22/25 05/22/25 Range/Units 20:00 21:47 WBC 20.7 H (4.5-11.0) X10^3/uL RBC 4.83 (4.5-5.9) X10^6/uL Hgb 14.2 (13.5-17.5) g/dL Hct 40.7 L (41-53) % MCV 84.3 (80-100) fL MCH 29.4 (26-34) PG MCHC 34.9 (30-36) % RDW 13.4 (11.6-14.8) % Plt Count 228 (150-400) X10^3/uL Neut % (Auto) 85.7 H (50-75) % Lymph % (Auto) 5.0 L (25-40) % [place] % (Auto) 8.2 (3-14) % Eos % (Auto) 0.8 L (2-4) % Baso % (Auto) 0.3 (0-2) % Neut # (Auto) 87996 H (8810-5388) /uL Lymph # (Auto) 1000 L (8690-8806) /uL [place] # (Auto) 1700 H (0-900) /uL Eos # (Auto) 200 (0-450) /uL Baso # (Auto) 100 (0-100) /uL PT 12.9 H (9.4-12.5) SECONDS INR 1.1 (0.9-1.3) APTT 28 (25.1-36.5) SECONDS Sodium 128 L (137-145) mmol/L Potassium 5.1 (3.4-5.1) mmol/L Chloride 99 (98-107) mmol/L Carbon Dioxide 18 L (22-32) mmol/L BUN 19 (9-20) mg/dL Creatinine 1.41 H (0.66-1.25) mg/dL Estimated GFR 56 L (>60) mL/min BUN/Creatinine Ratio 13.5 (6-22) Glucose 176 H (70-99) mg/dL Lactate 1.3 (0.7-2.1) mmol/L Calcium 9.7 (8.4-10.2) mg/dL Total Bilirubin 0.9 (0.2-1.3) mg/dL AST 28 (17-59) IU/L ALT 26 (<50) IU/L Alkaline Phosphatase 63 (38-126) U/L Total Protein 7.7 (6.3-8.2) g/dL Albumin 4.6 (3.5-5.0) g/dL Globulin 3.1 (1.7-4.1) g/dL Albumin/Globulin Ratio 1.5 (1.0-2.8) Procalcitonin 0.292 (<0.5) ng/mL Urine Color Yellow Urine Appearance Clear Urine pH 5.5 (4.5-8.0) Ur Specific [place] <=1.005 (1.000-1.035) Urine Protein Trace H (Negative) Urine Glucose (UA) Negative (Negative) g/dL Urine Ketones Negative (NEGATIVE) Urine Occult Blood 3+ H (Negative) Urine Nitrate Negative (Negative) Urine Bilirubin Negative (NEGATIVE) Urine Urobilinogen 0.2 (0.2) E.U./dL Ur Leukocyte Esterase 1+ H (NEGATIVE) Urine RBC 5-10/hpf H (0-5/HPF) Urine WBC 10-30/hpf H (0-5/HPF) Ur Squamous Epith Cells 0-1 /hpf (0-5/HPF) Urine Bacteria Occasional (0-1) (None) Ur Culture Indicated? Specimen cultured Vol Urine Centrifuged 10ml (spun) ECG Data Interpretation: Sinus tachycardia. Rate 111. Otherwise normal EKG. Discharge Plan Departure Patient Disposition: Admitted As Inpatient Clinical Impression: Sepsis Qualifiers: Sepsis type: sepsis due to unspecified organism Sepsis acute organ dysfunction status: unspecified Qualified Code(s): A41.9 - Sepsis, unspecified organism Admit Date/Time: 05/22/25 22:54 Admit Provider: Eloy Lee
[2025-05-22] MEDS: SODIUM CHLORIDE 0.9% 1,000 ML 100 ML IV (22:58)
[2025-05-23] VITALS (33 sets, daily range): BP systolic 100–124; BP diastolic 49–61; PULSE 80–100; RESP 17; TEMP 36.4–38.2; O2SAT 82–100; BMI 37.2
[2025-05-23] MEDS: CODEINE/ACETAMINOPHEN 30/300 TABLET 1 TAB PO (04:14)
[2025-05-23 07:04] LABS: MRSA (Nasal) PCR NOT DETECTED (Not Detect)
--- NOTE | 2025-05-23 07:13 | PM.HP.1 ---
History of Present Illness History of Present Illness Date Patient Seen: 05/22/25 Time Patient Seen: 22:19 Chief complaint: red urine-pain- sepsis? Narrative: 60-year-old male with past medical history of depression, hypertension, hyperlipidemia, obstructive sleep apnea, chronic pain, migraine and insomnia presents with dysuria and fever. Of note the patient presented to our ER a few days ago for acute urinary retention. The patient had a straight cath done in our ER that day and was sent home. The patient states that he started to have subjective fever and chills today along with gross hematuria dysuria and urinary urgency. The patient also has some nausea but denies any vomiting, abdominal pain, chest pain, shortness of breath, diarrhea or coughing. In the emergency room, the patient was slightly low on his blood pressure with systolic in the 90s. Labs shows WBC of 20 sodium 126 creatinine 1.4 glucose 176 lactate 1.3. UA was positive for UTI. The patient did receive sepsis fluid bolus with improvement of systolic blood pressure in the 1 teens. IV ceftriaxone was given. FOR[facility]LY [facility] Medical History Chronic migraine Chronic pain Opioid dependence H/O adenomatous polyp of colon Diabetes type 2, controlled Depression Hypertension Colon polyps (04/2017) Human leukocyte antigen B27 positive (05/13/16) Essential hypertension Insomnia Hyperlipidemia Obstructive sleep apnea Social History household members: spouse Smoking Status: Never smoker alcohol intake: current eating out: 1-3 times/week Meds Home Medications and Allergies Home Medications ?Medication ?Instructions ?Recorded ?Confirmed ?Type Blood Sugar Test Stripts #100 ea 01/21/21 05/23/25 Rx Glucometer #1 ea 01/21/21 05/23/25 Rx Lancets #100 ea 01/21/21 05/23/25 Rx carvedilol 25 mg tablet 25 mg PO BID #180 tabs 07/12/24 05/23/25 Rx simvastatin 20 mg tablet (Zocor) 20 mg PO DAILY #90 tabs 08/09/24 05/23/25 Rx lisinopril 40 mg tablet 40 mg PO DAILY #90 tabs 09/09/24 05/23/25 Rx glipizide 10 mg tablet 10 mg PO BID #180 tabs 12/05/24 05/23/25 Rx spironolactone 50 mg tablet 50 mg PO DAILY #90 tabs 01/02/25 05/23/25 Rx quetiapine 50 mg tablet 50 - 100 mg (1 - 2 x 50 mg) PO 02/03/25 05/23/25 Rx DAILY #60 tabs dulaglutide 0.75 mg/0.5 mL 0.75 mg (0.5 mL) SUBCUT QWEEK #6 mL 02/21/25 05/23/25 Rx subcutaneous pen injector (Trulicity) acetaminophen 300 mg-codeine 30 mg 1 - 2 tab PO Q4-6H PRN pain #90 03/11/25 05/23/25 Rx tablet tabs acetaminophen 300 mg-codeine 30 mg 1 - 2 tab PO Q4-6H PRN pain #90 03/11/25 05/23/25 Rx tablet tabs acetaminophen 300 mg-codeine 30 mg 1 - 2 tab PO Q4-6H PRN pain #90 03/11/25 05/23/25 Rx tablet tabs zolpidem 10 mg tablet (Ambien) 10 mg PO HS PRN insomnia #60 tabs 03/11/25 05/23/25 Rx hydrocortisone acetate 25 mg 25 mg VA BID #12 ea 05/20/25 05/23/25 Rx rectal suppository (Anusol-HC) lactulose 10 gram/15 mL oral 15 ml PO BEDTIME #473 mL 05/21/25 05/23/25 Rx solution sildenafil 100 mg tablet (Viagra) 100 mg PO QDAYP PRN erectile 05/23/25 05/23/25 History dysfunction Allergies Allergy/AdvReac Type Severity Reaction Status Date / Time metformin AdvReac Intermediate Diarrhea Verified 05/22/25 20:07 Review of Systems Review of Systems ROS: Yes All systems reviewed with the patient and are negative except as otherwise documented Exam Vital Signs (past 8 hours): - 05/22/25 23:15 05/22/25 23:15 05/22/25 23:30 Temperature Pulse Rate 85 85 Respiratory Rate 19 18 Blood Pressure 103/57 L Pulse Oximetry 96 97 Oxygen Delivery Method Oxygen Flow Rate 05/22/25 23:30 05/22/25 23:45 05/22/25 23:45 Temperature Pulse Rate 85 Respiratory Rate 15 Blood Pressure 104/55 L 95/49 L Pulse Oximetry 94 Oxygen Delivery Method Oxygen Flow Rate 05/23/25 00:00 05/23/25 00:00 05/23/25 00:16 Temperature Pulse Rate 85 Respiratory Rate 17 Blood Pressure 100/57 L Pulse Oximetry 97 Oxygen Delivery Method Room Air CPAP Oxygen Flow Rate 05/23/25 00:33 05/23/25 01:00 05/23/25 01:00 Temperature Pulse Rate 88 86 Respiratory Rate Blood Pressure 124/57 L Pulse Oximetry 98 98 Oxygen Delivery Method Oxygen Flow Rate 0 0 05/23/25 01:30 05/23/25 01:30 05/23/25 01:44 Temperature Pulse Rate 88 Respiratory Rate Blood Pressure 122/60 115/57 L Pulse Oximetry 98 Oxygen Delivery Method Oxygen Flow Rate 0 05/23/25 01:44 05/23/25 02:00 05/23/25 02:00 Temperature Pulse Rate 93 H 93 H Respiratory Rate Blood Pressure 106/52 L Pulse Oximetry 99 97 Oxygen Delivery Method Oxygen Flow Rate 0 0 05/23/25 02:19 05/23/25 02:30 05/23/25 02:47 Temperature Pulse Rate 94 H 97 H Respiratory Rate Blood Pressure 109/56 L Pulse Oximetry 97 95 Oxygen Delivery Method Oxygen Flow Rate 0 0 05/23/25 03:00 05/23/25 03:00 05/23/25 03:30 Temperature Pulse Rate 92 H 98 H Respiratory Rate Blood Pressure 105/52 L Pulse Oximetry 99 97 Oxygen Delivery Method Oxygen Flow Rate 0 0 05/23/25 03:30 05/23/25 04:00 05/23/25 04:00 Temperature 100.8 F H Pulse Rate 98 H Respiratory Rate Blood Pressure 111/53 L 109/56 L Pulse Oximetry 98 Oxygen Delivery Method Oxygen Flow Rate 0 05/23/25 04:01 05/23/25 04:30 05/23/25 04:30 Temperature 99.4 F Pulse Rate 97 H Respiratory Rate Blood Pressure 114/54 L Pulse Oximetry 99 Oxygen Delivery Method Oxygen Flow Rate 0 05/23/25 04:55 05/23/25 05:00 05/23/25 05:06 Temperature Pulse Rate 100 H 99 H Respiratory Rate Blood Pressure 104/56 L Pulse Oximetry 82 L 100 Oxygen Delivery Method Oxygen Flow Rate 0 0 05/23/25 05:20 05/23/25 05:29 05/23/25 05:30 Temperature 100.1 F H Pulse Rate 99 H Respiratory Rate Blood Pressure 104/53 L Pulse Oximetry 95 Oxygen Delivery Method Oxygen Flow Rate 0 05/23/25 05:30 05/23/25 06:00 05/23/25 06:01 Temperature Pulse Rate 98 H 94 H Respiratory Rate Blood Pressure 100/49 L Pulse Oximetry 95 96 Oxygen Delivery Method Oxygen Flow Rate 05/23/25 06:01 05/23/25 06:30 05/23/25 06:30 Temperature Pulse Rate 95 H 92 H Respiratory Rate Blood Pressure 106/53 L Pulse Oximetry 96 96 Oxygen Delivery Method Oxygen Flow Rate 0 Oxygen Delivery Method Room Air,CPAP Oxygen Flow Rate 0 Narrative Exam Narrative: Physical Exam: GENERAL: The patient is not in any acute distressed. Awake and alert. HEENT: Nonicteric sclerae, PERRLA, EOMI. Oropharynx clear. Moist mucous membranes. Conjunctivae appear well perfused. HEART: Regular rate and rhythm without murmurs. No lower extremities edema. LUNGS: Clear to auscultation bilaterally. No wheezing, crackles or rhonchi ABDOMEN: Soft, positive bowel sounds, nontender. SKIN: No rash, no excessive bruising, petechiae, or purpura. NEUROLOGIC: AxO x 3. Cranial nerves II-XII intact without motor/sensory deficit. Objective Labs 05/22/25 20:00 05/22/25 20:00 Labs: Laboratory Results - last 24 hr 05/22/25 05/22/25 05/23/25 20:00 21:47 00:34 WBC 20.7 H RBC 4.83 Hgb 14.2 Hct 40.7 L MCV 84.3 MCH 29.4 MCHC 34.9 RDW 13.4 Plt Count 228 Neut % (Auto) 85.7 H Lymph % (Auto) 5.0 L [place] % (Auto) 8.2 Eos % (Auto) 0.8 L Baso % (Auto) 0.3 Neut # (Auto) 08232 H Lymph # (Auto) 1000 L [place] # (Auto) 1700 H Eos # (Auto) 200 Baso # (Auto) 100 PT 12.9 H INR 1.1 APTT 28 Sodium 128 L Potassium 5.1 Chloride 99 Carbon Dioxide 18 L BUN 19 Creatinine 1.41 H Estimated GFR 56 L BUN/Creatinine Ratio 13.5 Glucose 176 H Lactate 1.3 Calcium 9.7 Total Bilirubin 0.9 AST 28 ALT 26 Alkaline Phosphatase 63 Total Protein 7.7 Albumin 4.6 Globulin 3.1 Albumin/Globulin Ratio 1.5 Procalcitonin 0.292 Urine Color Yellow Urine Appearance Clear Urine pH 5.5 Ur Specific [place] <=1.005 Urine Protein Trace H Urine Glucose (UA) Negative Urine Ketones Negative Urine Occult Blood 3+ H Urine Nitrate Negative Urine Bilirubin Negative Urine Urobilinogen 0.2 Ur Leukocyte Esterase 1+ H Urine RBC 5-10/hpf H Urine WBC 10-30/hpf H Ur Squamous Epith Cells 0-1 /hpf Urine Bacteria Occasional (0-1) Ur Culture Indicated? Specimen cultured Vol Urine Centrifuged 10ml (spun) Nasal Screen MRSA (PCR) Not detected Assessment & Plan Assessment & Plan narrative: Sepsis. Admit the patient to medical telemetry as inpatient. Likely source is urine. Continue to treat underlying infection and monitor hemodynamic. Continue IV fluid. UTI with recent straight cath in our ER a few days ago. Likely cause for infection. Continue IV ceftriaxone and follow-up urine culture. Mild hyponatremia. Sodium 128. Likely from dehydration. NS and recheck sodium in the morning. Hypertension. Hold blood pressure medication due to low blood pressure on arrival. Depression. Resume home medication. Hyperlipidemia resume home statin. DVT prophylaxis heparin subcu. CODE STATUS full code. Disposition likely home in 2 to 3 days - As the provider of this telehealth evaluation, requested by the patient's evaluating physician, I attest that I introduced myself to the patient, provided my credentials and determined that telemedicine via a real-time, 2 way interactive audio and video platform is an appropriate and effective means of providing this service. - I reviewed the patient's chart and had a discussion with the member of the patient's treatment team. - The patient and I mutually agreed with continuation of this evaluation via telemedicine. The patient consented for the telemedicine evaluation. - This virtual encounter was taken place from [place] by Dr. Eoly Lee. The patient was evaluated at [facility]. The encounter was approximately 35 minutes. The nurse was present during the entire time of the encounter and was able to move the stethoscope in appropriate directions. Time-Based Coding :: [TOTAL MINUTES] spent with patient and on the chart (including review of chart, obtaining history, exam, reviewing outside data, placing orders, documenting exam and treatment plan, and counseling patient) on [DATE]. Quality VTE Deep Vein Thrombosis/Pulmonary Embolism Present on Admission: No
[2025-05-23 08:03] LABS: Add Manual Diff / Slide Review NO; Hematocrit 35.2 % (41-53); Hemoglobin 12.2 g/dL (13.5-17.5); Lymphocytes Absolute Auto 1500 /uL (1100-4500); Mean Corpuscular HGB Conc 34.8 % (30-36); Mean Corpuscular Hemoglobin 29.4 PG (26-34); Mean Corpuscular Volume 84.6 fL (80-100); Platelet Count 213 X10^3/uL (150-400)
[2025-05-23 08:14] LABS: Blood Urea Nitrogen 13 mg/dL (9-20); Calcium 8.5 mg/dL (8.4-10.2); Carbon Dioxide 19 mmol/L (22-32); Chloride 103 mmol/L (98-107); Estimated Glomerular Filt Rate > 60 mL/min (>60); Glucose 168 mg/dL (70-99); HEMOLYSIS < 15 (0-50); Potassium 4.5 mmol/L (3.4-5.1); Sodium 132 mmol/L (137-145)
[2025-05-23] MEDS: SODIUM CHLORIDE 0.9% FLUSH 10 ML IV ×2 (08:58→21:57)
[2025-05-23] MEDS: ATORVASTATIN 20 MG TABLET 10 MG PO (09:07)
[2025-05-23] MEDS: HEPARIN 5,000 UNIT/ML VIAL 5000 UNIT SUBCUT ×2 (09:07→21:45)
[2025-05-23] MEDS: SPIRONOLACTONE 25 MG TABLET 50 MG PO (09:08)
--- NOTE | 2025-05-23 09:09 | PM.PN.IH.1 ---
Subjective Subjective Date Patient Seen: 05/23/25 Time Patient Seen: 09:28 Interval history: Patient seen and evaluated this morning. Says he is feeling better. Still some chills last night. Fevers and chills at home. Urination is going well. Blood pressure still a little bit soft. Receiving IV fluids. T-max 100.8? patient has been nauseated not eating well for 24 hours had a little bit of breakfast this morning which he says was good. O2 sats are normal. Not on oxygen. Ambulating well. Exam Vital Signs (past 8 hours): - 05/23/25 01:30 05/23/25 01:30 05/23/25 01:44 Temperature Pulse Rate 88 Blood Pressure 122/60 115/57 L Pulse Oximetry 98 Oxygen Flow Rate 0 05/23/25 01:44 05/23/25 02:00 05/23/25 02:00 Temperature Pulse Rate 93 H 93 H Blood Pressure 106/52 L Pulse Oximetry 99 97 Oxygen Flow Rate 0 0 05/23/25 02:19 05/23/25 02:30 05/23/25 02:47 Temperature Pulse Rate 94 H 97 H Blood Pressure 109/56 L Pulse Oximetry 97 95 Oxygen Flow Rate 0 0 05/23/25 03:00 05/23/25 03:00 05/23/25 03:30 Temperature Pulse Rate 92 H 98 H Blood Pressure 105/52 L Pulse Oximetry 99 97 Oxygen Flow Rate 0 0 05/23/25 03:30 05/23/25 04:00 05/23/25 04:00 Temperature 100.8 F H Pulse Rate 98 H Blood Pressure 111/53 L 109/56 L Pulse Oximetry 98 Oxygen Flow Rate 0 05/23/25 04:01 05/23/25 04:30 05/23/25 04:30 Temperature 99.4 F Pulse Rate 97 H Blood Pressure 114/54 L Pulse Oximetry 99 Oxygen Flow Rate 0 05/23/25 04:55 05/23/25 05:00 05/23/25 05:06 Temperature Pulse Rate 100 H 99 H Blood Pressure 104/56 L Pulse Oximetry 82 L 100 Oxygen Flow Rate 0 0 05/23/25 05:20 05/23/25 05:29 05/23/25 05:30 Temperature 100.1 F H Pulse Rate 99 H Blood Pressure 104/53 L Pulse Oximetry 95 Oxygen Flow Rate 0 05/23/25 05:30 05/23/25 06:00 05/23/25 06:01 Temperature Pulse Rate 98 H 94 H Blood Pressure 100/49 L Pulse Oximetry 95 96 Oxygen Flow Rate 05/23/25 06:01 05/23/25 06:30 05/23/25 06:30 Temperature Pulse Rate 95 H 92 H Blood Pressure 106/53 L Pulse Oximetry 96 96 Oxygen Flow Rate 0 05/23/25 08:06 05/23/25 08:07 05/23/25 08:07 Temperature Pulse Rate 91 H Blood Pressure 106/53 L Pulse Oximetry 94 95 Oxygen Flow Rate Oxygen Delivery Method Room Air,CPAP Oxygen Flow Rate 0 Narrative Exam Narrative: Gen.: Alert no apparent distress good historian HEENT: Pupils equal round and reactive or mucosa is moist Cardio: S1-S2 regular rate and rhythm no murmurs appreciated. Respiratory: Lungs are clear to auscultation no wheezes or crackles normal respiratory effort. Abdomen: Soft nontender no rebound or guarding no liver spleen enlargement no appreciable hernias Extremities: Full range of motion no appreciable weakness no cyanosis or edema. Neurologic: Grossly intact. Objective Labs 05/23/25 07:35 05/23/25 07:35 Labs: Laboratory Results - last 24 hr 05/22/25 05/22/25 05/23/25 20:00 21:47 00:34 WBC 20.7 H RBC 4.83 Hgb 14.2 Hct 40.7 L MCV 84.3 MCH 29.4 MCHC 34.9 RDW 13.4 Plt Count 228 Neut % (Auto) 85.7 H Lymph % (Auto) 5.0 L [place] % (Auto) 8.2 Eos % (Auto) 0.8 L Baso % (Auto) 0.3 Neut # (Auto) 52121 H Lymph # (Auto) 1000 L [place] # (Auto) 1700 H Eos # (Auto) 200 Baso # (Auto) 100 PT 12.9 H INR 1.1 APTT 28 Sodium 128 L Potassium 5.1 Chloride 99 Carbon Dioxide 18 L BUN 19 Creatinine 1.41 H Estimated GFR 56 L BUN/Creatinine Ratio 13.5 Glucose 176 H Lactate 1.3 Calcium 9.7 Total Bilirubin 0.9 AST 28 ALT 26 Alkaline Phosphatase 63 Total Protein 7.7 Albumin 4.6 Globulin 3.1 Albumin/Globulin Ratio 1.5 Procalcitonin 0.292 Urine Color Yellow Urine Appearance Clear Urine pH 5.5 Ur Specific [place] <=1.005 Urine Protein Trace H Urine Glucose (UA) Negative Urine Ketones Negative Urine Occult Blood 3+ H Urine Nitrate Negative Urine Bilirubin Negative Urine Urobilinogen 0.2 Ur Leukocyte Esterase 1+ H Urine RBC 5-10/hpf H Urine WBC 10-30/hpf H Ur Squamous Epith Cells 0-1 /hpf Urine Bacteria Occasional (0-1) Ur Culture Indicated? Specimen cultured Vol Urine Centrifuged 10ml (spun) Nasal Screen MRSA (PCR) Not detected 05/23/25 07:35 WBC 17.8 H RBC 4.16 L Hgb 12.2 L Hct 35.2 L MCV 84.6 MCH 29.4 MCHC 34.8 RDW 13.6 Plt Count 213 Neut % (Auto) 80.8 H Lymph % (Auto) 8.7 L [place] % (Auto) 10.2 Eos % (Auto) 0.2 L Baso % (Auto) 0.1 Neut # (Auto) 32769 H Lymph # (Auto) 1500 [place] # (Auto) 1800 H Eos # (Auto) 0 Baso # (Auto) 0 PT INR APTT Sodium 132 L Potassium 4.5 Chloride 103 Carbon Dioxide 19 L BUN 13 Creatinine 1.17 Estimated GFR > 60 BUN/Creatinine Ratio 11.1 Glucose 168 H Lactate Calcium 8.5 Total Bilirubin AST ALT Alkaline Phosphatase Total Protein Albumin Globulin Albumin/Globulin Ratio Procalcitonin Urine Color Urine Appearance Urine pH Ur Specific [place] Urine Protein Urine Glucose (UA) Urine Ketones Urine Occult Blood Urine Nitrate Urine Bilirubin Urine Urobilinogen Ur Leukocyte Esterase Urine RBC Urine WBC Ur Squamous Epith Cells Urine Bacteria Ur Culture Indicated? Vol Urine Centrifuged Nasal Screen MRSA (PCR) [facility] Medical History Chronic migraine Chronic pain Opioid dependence H/O adenomatous polyp of colon Diabetes type 2, controlled Depression Hypertension Colon polyps (04/2017) Human leukocyte antigen B27 positive (05/13/16) Essential hypertension Insomnia Hyperlipidemia Obstructive sleep apnea Social History household members: spouse Smoking Status: Never smoker alcohol intake: current eating out: 1-3 times/week Assessment & Plan Assessment and plan (1) Sepsis: Qualifiers: Sepsis acute organ dysfunction status: unspecified Sepsis type: sepsis due to unspecified organism Qualified Code(s): A41.9 - Sepsis, unspecified organism Status: Acute Plan Sepsis likely source is urinary tract infection. Patient with elevated white blood cell count tachycardia fever. Patient started on ceftriaxone received IV fluids. Patient has responded this morning white blood cell count is better. Still receiving maintenance IV fluids at 100 cc/hour blood pressure is still a little bit soft. He is mentating well. Kidney functions normal. Continue with ceftriaxone. Urine was sent for culture results pending at this point and we will continue with his current IV antibiotics. Recheck white blood cell count. Monitor closely blood pressure. Urinary tract infection. Recent catheter associated infection due to straight cath in emergency department due to urinary obstruction due to constipation. Patient says has frequent problems with nocturia and also urinary flow. Start Flomax today. Hyponatremia. Sodium is improved up to 130 continue normal saline recheck sodium tomorrow. Liberalize salt in diet. Diabetes non-insulin dependent. Patient's diabetic medication will be restarted. He will have insulin sliding scale coverage and Accu-Cheks before each meal and at night. Diabetic diet will be continued. Hypertension. Patient's blood pressure medication has been adjusted due to his hypotension will continue to monitor and reimplant once his blood pressure improves. Hyperlipidemia continue with current statin DVT prophylaxis continue Code status full code Disposition and plan continue with IV I antibiotics IV fluids. Insulin as needed to help maintain appropriate blood sugars. Patient will need hospitalization for at least 24-48 more hours Time-Based Coding :: [TOTAL MINUTES] spent with patient and on the chart (including review of chart, obtaining history, exam, reviewing outside data, placing orders, documenting exam and treatment plan, and counseling patient) on [DATE]. 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
[2025-05-23] MEDS: TAMSULOSIN 0.4 MG CAPSULE PO (09:31)
[2025-05-23] MEDS: INSULIN LISPRO 100 UNIT/ML 3ML VIAL SUBCUT ×2 (12:48→17:15)
[2025-05-23] MEDS: LACTULOSE 20 GM/30 ML SOLUTION 10 GM PO (21:50)
[2025-05-23] MEDS: QUETIAPINE 25 MG TABLET PO (21:51)
[2025-05-23] MEDS: ZOLPIDEM 5 MG TABLET 15 MG PO (22:51)
[2025-05-24] VITALS (8 sets, daily range): BP systolic 113–121; BP diastolic 59–62; PULSE 80–83; RESP 18; TEMP 36.4–36.8; O2SAT 92–98
[2025-05-24] MEDS: INSULIN LISPRO 100 UNIT/ML 3ML VIAL SUBCUT (09:03)
[2025-05-24] MEDS: TAMSULOSIN 0.4 MG CAPSULE PO (09:04)
[2025-05-24] MEDS: HEPARIN 5,000 UNIT/ML VIAL 5000 UNIT SUBCUT (09:04)
[2025-05-24] MEDS: ATORVASTATIN 20 MG TABLET 10 MG PO (09:04)
[2025-05-24] MEDS: SODIUM CHLORIDE 0.9% FLUSH 10 ML IV (09:06)
[2025-05-24] MEDS: SPIRONOLACTONE 25 MG TABLET 50 MG PO (09:07)
[2025-05-24 09:34] LABS: Add Manual Diff / Slide Review NO; Hematocrit 34.4 % (41-53); Hemoglobin 12.5 g/dL (13.5-17.5); Lymphocytes Absolute Auto 1100 /uL (1100-4500); Mean Corpuscular HGB Conc 36.2 % (30-36); Mean Corpuscular Hemoglobin 30.5 PG (26-34); Mean Corpuscular Volume 84.2 fL (80-100); Platelet Count 199 X10^3/uL (150-400)
[2025-05-24 09:46] LABS: Alanine Aminotransferase 22 IU/L (<50); Albumin 4.0 g/dL (3.5-5.0); Albumin Globulin Ratio 1.3 (1.0-2.8); Alkaline Phosphatase 55 U/L (38-126); Blood Urea Nitrogen 12 mg/dL (9-20); Calcium 9.0 mg/dL (8.4-10.2); Carbon Dioxide 21 mmol/L (22-32); Chloride 103 mmol/L (98-107); Estimated Glomerular Filt Rate > 60 mL/min (>60); Globulin 3.0 g/dL (1.7-4.1); Glucose 195 mg/dL (70-99); HEMOLYSIS < 15 (0-50); Potassium 4.0 mmol/L (3.4-5.1); Sodium 132 mmol/L (137-145); Total Protein 7.0 g/dL (6.3-8.2)
--- NOTE | 2025-05-24 10:13 | PM.DS.IH.1 ---
History of Present Illness History of Present Illness Chief complaint: red urine-pain- sepsis? Discharge Providers Provider Date of admission: 05/22/25 22:54 Discharge Date: 05/24/25 Primary care physician: Walter Wooten MD Discharge provider: Pedro Reese MD Summary Hospital Course Discharge Diagnosis: Sepsis due to urinary tract infection culture negative so far presumed E coli Urinary tract infection Hyponatremia Type 2 diabetes Hypertension Hyperlipidemia Hospital Course: Patient was admitted to the hospital with sepsis due to urinary tract infection. Patient was given appropriate IV fluids lactic acid blood cultures urine cultures. He was started on Ancef tracks on IV. Patient had soft blood pressures tachycardia and increased temperature. During hospital stay patient had improvement of blood pressure his temperature is trended down. After 24 hours he is feeling little bit better tolerating his diet. During his stay was started on Flomax in addition to his regular medication. Patient over the ensuing 24 hours had improved and normalization of his temperature and white blood cell count. He was tolerating his diet he was ambulating well. Patient had normal bowel movement and urination. His blood sugars were well controlled as well as his blood pressure he was restarted on his cholesterol medication. Exam Vital Signs (past 8 hours): - 05/24/25 05:32 05/24/25 05:34 05/24/25 05:34 Temperature 98.1 F Pulse Rate 80 81 Respiratory Rate Blood Pressure 118/59 L Pulse Oximetry 95 95 Oxygen Delivery Method Oxygen Flow Rate 05/24/25 07:00 05/24/25 08:00 05/24/25 09:00 Temperature 98.3 F 97.6 F Pulse Rate 83 83 Respiratory Rate 18 18 Blood Pressure 113/62 113/62 Pulse Oximetry 92 92 Oxygen Delivery Method Room Air CPAP Oxygen Flow Rate 0 05/24/25 09:05 05/24/25 09:06 Temperature Pulse Rate 80 80 Respiratory Rate Blood Pressure 113/62 113/62 Pulse Oximetry Oxygen Delivery Method Oxygen Flow Rate Oxygen Delivery Method Room Air,CPAP Oxygen Flow Rate 0 Objective Labs 05/24/25 07:25 05/23/25 07:35 Labs: Laboratory Results - last 24 hr 05/23/25 05/23/25 05/23/25 12:35 17:00 21:26 WBC RBC Hgb Hct MCV MCH MCHC RDW Plt Count Neut % (Auto) Lymph % (Auto) [place] % (Auto) Eos % (Auto) Baso % (Auto) Neut # (Auto) Lymph # (Auto) [place] # (Auto) Eos # (Auto) Baso # (Auto) POC Whole Bld Glucose 158 H 141 H 160 H 05/24/25 05/24/25 05/24/25 02:49 07:25 08:23 WBC 10.1 RBC 4.09 L Hgb 12.5 L Hct 34.4 L MCV 84.2 MCH 30.5 MCHC 36.2 H RDW 13.4 Plt Count 199 Neut % (Auto) 79.5 H Lymph % (Auto) 11.1 L [place] % (Auto) 7.7 Eos % (Auto) 1.4 L Baso % (Auto) 0.3 Neut # (Auto) 8000 H Lymph # (Auto) 1100 [place] # (Auto) 800 Eos # (Auto) 100 Baso # (Auto) 0 POC Whole Bld Glucose 185 H 159 H PFSH Medical History Chronic migraine Chronic pain Opioid dependence H/O adenomatous polyp of colon Diabetes type 2, controlled Depression Hypertension Colon polyps (04/2017) Human leukocyte antigen B27 positive (05/13/16) Essential hypertension Insomnia Hyperlipidemia Obstructive sleep apnea Social History household members: spouse Smoking Status: Never smoker alcohol intake: current eating out: 1-3 times/week Discharge Plan Discharge Plan Patient Disposition: Home Discharge orders & Medications Prescriptions: New tamsulosin 0.4 mg Capsule 0.4 mg PO DAILY Qty: 30 0RF cefdinir 300 mg capsule 300 mg PO BID Qty: 14 0RF Continued (DME) Glucometer See Rx Instructions .Route .MEDSUPPLY Qty: 1 0RF Rx Instructions: Use as directed to test blood sugars daily. (DME) Blood Sugar Test Stripts See Rx Instructions .Route .MEDSUPPLY Qty: 100 3RF Rx Instructions: Use as directed to check blood sugars daily. (DME) Lancets See Rx Instructions .Route .MEDSUPPLY Qty: 100 3RF Rx Instructions: Use to check blood sugars daily. carvedilol 25 mg tablet 25 mg PO BID Qty: 180 3RF Rx Instructions: must administer with a meal/food simvastatin [Zocor] 20 mg tablet 20 mg PO DAILY Qty: 90 3RF lisinopril 40 mg tablet 40 mg PO DAILY Qty: 90 3RF glipizide 10 mg tablet 10 mg PO BID Qty: 180 3RF spironolactone 50 mg tablet 50 mg PO DAILY Qty: 90 3RF quetiapine 50 mg tablet 50 - 100 mg PO DAILY Qty: 60 2RF Trulicity 0.75 mg/0.5 mL pen injector 0.75 mg SUBCUT QWEEK Qty: 6 2RF acetaminophen-codeine 300-30 mg tablet 1 - 2 tab PO Q4-6H MDD 4 tabs PRN (Reason: pain) Qty: 90 0RF Rx Instructions: okay to refill on/after 03/11/2025 acetaminophen-codeine 300-30 mg tablet 1 - 2 tab PO Q4-6H MDD 4 tabs PRN (Reason: pain) Qty: 90 0RF Rx Instructions: okay to refill on 04/08/2025 acetaminophen-codeine 300-30 mg tablet 1 - 2 tab PO Q4-6H MDD 4 tabs PRN (Reason: pain) Qty: 90 0RF Rx Instructions: Take 1-2 tabs every 4-6 hours as needed for pain. Okay to refill on/after 05/06/2025 zolpidem [Ambien] 10 mg tablet 10 mg PO HS PRN (Reason: insomnia) Qty: 60 3RF Rx Instructions: Take 1 tablet by mouth at bedtime as needed for sleep, may take 1 additional tab as needed. Okay to fill on 03/27/25 first time hydrocortisone acetate [Anusol-HC] 25 mg suppository 25 mg HI BID Qty: 12 0RF sildenafil [Viagra] 100 mg tablet 100 mg PO QDAYP PRN (Reason: erectile dysfunction) Patient Comments: It's been years since I've taken it lactulose 10 gram/15 mL solution 15 ml PO BEDTIME Qty: 473 0RF Follow up/Referrals: Walter Wooten MD [Primary Care Provider, Internal Medicine] Visit Report/Discharge Packet Stand Alone Forms: Patient Portal/API, Stroke Signs & Symptoms Discharge Data Primary Care Provider: Walter Wooten Quality VTE Deep Vein Thrombosis/Pulmonary Embolism Present on Admission: No IH PROFEE Charge Codes Discharge inpatient/observation: [id number]
--- NOTE | 2025-05-24 10:59 | PC.NURSE ---
Reviewed discharge instructions with patient. IV removed, medication drawer emptied, home medications retrieved from pharmacist, telemetry removed. All belongings sent home with pt.
[2025-05-24 13:42] LABS: RBC Morphology Normal Morphology
== END 2025-05-24 12:00 | disposition home or self-care (01) | DRG 698 ==
LOC: ED 20:50 → AC 22:54 → ICU 23:56
PROVIDERS: Family Medicine; Admitting Provider Internal Medicine; Emergency Provider Emergency Medicine; PCP Internal Medicine; Referring Provider Emergency Medicine; Visit Provider Internal Medicine
DX: T83.518A Infection and inflammatory reaction due to other urinary catheter, initial encounter (principal); A41.9 Sepsis, unspecified organism; E87.1 Hypo-osmolality and hyponatremia; N39.0 Urinary tract infection, site not specified; I10 Essential (primary) hypertension; F32.A Depression, unspecified; E78.5 Hyperlipidemia, unspecified; E11.9 Type 2 diabetes mellitus without complications; G47.33 Obstructive sleep apnea (adult) (pediatric); B96.20 Unspecified Escherichia coli [E. coli] as the cause of diseases classified elsewhere; G47.00 Insomnia, unspecified; Y73.1 Therapeutic (nonsurgical) and rehabilitative gastroenterology and urology devices associated with adverse incidents; Z79.84 Long term (current) use of oral hypoglycemic drugs; Z79.85 Long-term (current) use of injectable non-insulin antidiabetic drugs
CPT/HCPCS: 36415; 51701; 51798; 71045; 74176; 80048; 80053; 81001; 82962; 83605; 84145; 85025; 85610; 85730; 87040; 87086; 87797; 93005; 96361; 96365; 96368; 99283; 99284; J0131; J0696; J1644; J1815; J1885

== ENCOUNTER → 2025-06-02 08:35 | Outpatient (CLI) | payer BC, SELFPAY ==
[2025-05-23 00:37] VITALS: BMI 37.2
[2025-06-02 09:19] LABS: Hemoglobin A1C% w Est Avg Glu 6.3 % (4.0-6.0)
[2025-06-02 09:30] LABS: Alanine Aminotransferase 28 IU/L (<50); Albumin 4.3 g/dL (3.5-5.0); Albumin Globulin Ratio 1.5 (1.0-2.8); Alkaline Phosphatase 64 U/L (38-126); Blood Urea Nitrogen 26 mg/dL (9-20); Calcium 9.5 mg/dL (8.4-10.2); Carbon Dioxide 20 mmol/L (22-32); Chloride 100 mmol/L (98-107); Cholesterol 143 mg/dL (140-199); Estimated Glomerular Filt Rate > 60 mL/min (>60); Globulin 2.8 g/dL (1.7-4.1); Glucose 157 mg/dL (70-99); HDL Cholesterol 28 mg/dL (40-60); HEMOLYSIS < 15 (0-50); Potassium 4.9 mmol/L (3.4-5.1); Sodium 131 mmol/L (137-145); Total Protein 7.1 g/dL (6.3-8.2); Triglycerides 381 mg/dL (35-150)
[2025-06-02 14:26] LABS: TSH w/ Reflex to FT4 1.45 uIU/mL (0.47-4.68)
== END ==
PROVIDERS: PCP Internal Medicine; Referring Provider Internal Medicine; Visit Provider Internal Medicine
DX: Z12.5 Encounter for screening for malignant neoplasm of prostate (principal); E11.9 Type 2 diabetes mellitus without complications; E78.5 Hyperlipidemia, unspecified; I10 Essential (primary) hypertension; E03.9 Hypothyroidism, unspecified
CPT/HCPCS: 36415; 80053; 80061; 83036; 84443; G0103

== ENCOUNTER → 2025-08-22 06:52 | Outpatient (CLI) | payer BC, SELFPAY ==
[2025-05-23 00:37] VITALS: BMI 37.2
[2025-08-22 08:35] LABS: Alanine Aminotransferase 28 IU/L (<50); Albumin 4.4 g/dL (3.5-5.0); Albumin Globulin Ratio 1.6 (1.0-2.8); Alkaline Phosphatase 74 U/L (38-126); Blood Urea Nitrogen 20 mg/dL (9-20); Calcium 9.6 mg/dL (8.4-10.2); Carbon Dioxide 19 mmol/L (22-32); Chloride 103 mmol/L (98-107); Estimated Glomerular Filt Rate > 60 mL/min (>60); Globulin 2.7 g/dL (1.7-4.1); Glucose 173 mg/dL (70-99); HEMOLYSIS < 15 (0-50); Potassium 4.9 mmol/L (3.4-5.1); Sodium 135 mmol/L (137-145); Total Protein 7.1 g/dL (6.3-8.2)
[2025-08-22 08:36] LABS: Hemoglobin A1C% w Est Avg Glu 6.6 % (4.0-6.0)
[2025-08-22 09:07] LABS: Prostate Specific Antigen 2.03 ng/mL (0.10-4.00)
== END ==
PROVIDERS: PCP Internal Medicine; Referring Provider Internal Medicine; Visit Provider Internal Medicine
DX: R97.20 Elevated prostate specific antigen [PSA] (principal); E11.9 Type 2 diabetes mellitus without complications; I10 Essential (primary) hypertension
CPT/HCPCS: 36415; 80053; 83036; 84153